=== PATIENT | male | born 1955 | race Caucasian/White ===

== ENCOUNTER 2018-06-10 16:05 | Inpatient (IN) ==
--- NOTE | 2018-06-10 16:27 | CT ---
EXAM DATE: 06/10/2018 4:19 PM EDT AGE/SEX: 63 years / Male INDICATIONS: Stroke alert, left side flaccid. Slurred speech. CLINICAL DATA: This is the patient's initial encounter. Patient reports that signs and symptoms have been present for 1 day and indicates a pain score of Nonresponsive. MEDICAL/SURGICAL HISTORY: Non-responsive. Non-responsive. RADIATION DOSE: 56.35 CTDI (mGy) COMPARISON: [facility], MRA BRAIN W/O CONTRAST, 06/10/2013. . TECHNIQUE: CT of the head without contrast. Using automated exposure control and adjustment of the mA and/or kV according to patient size, radiation dose was kept as low as reasonably achievable to ob tain optimal diagnostic quality images. DICOM format image data is available electronically for revi ew and comparison. FINDINGS: Remote left cerebellar infarct identified. There is mild prominence of the CSF spaces greatest in the parietal regions. No fractures. There are no signs of intracranial hemorrhage, acute infarction, or mass. CONCLUSION: 1. No acute findings. Report was called by [Dr. Wilhelm to Dr. Shin at 4:20 PM on June 10, 2018. ] Electronically signed by: Sylvester Wilhelm MD 06/10/2018 4:25 PM EDT
[2018-06-10] MEDS ORDERED: ALTEPLASE DRIP IV.SIG ONE (16:30)
--- NOTE | 2018-06-10 16:41 | CT ---
EXAM DATE: 06/10/2018 4:35 PM EDT AGE/SEX: 63 years / Male INDICATIONS: Stroke alert, left side flaccid. Slurred speech. CLINICAL DATA: This is the patient's initial encounter. Patient reports that signs and symptoms have been present for 1 day and indicates a pain score of Nonresponsive. MEDICAL/SURGICAL HISTORY: Non-responsive. Dialysis Non-responsive. RADIATION DOSE: 12.53 CTDI (mGy) ; Combined studies [place] [facility] [place]. . TECHNIQUE: Volumetric scanning was performed using a multi-row detector CT scanner during bolus infu paul of 100 ml Visipaque 320 (iodixanol) nonionic water-soluble contrast as a cumulative dose for mu ltiple exams. The data was post processed with a variety of visualization algorithms including full volume maximum intensity projection, multi-planar sliding thin slab reformation, curved planar refor mation, and surface rendering techniques. Using automated exposure control and adjustment of the mA and/or kV according to patient size, radiation dose was kept as low as reasonably achievable to obtai n optimal diagnostic quality images. DICOM format image data is available electronically for review and comparison. FINDINGS: There is excellent visualization of the major intracranial arteries out to the second-order branch ve ssels. There is no evidence for aneurysm, vessel truncation or stenosis, and no evidence for vascula r malformation. There is extensive vascular calcification identified within the region of the carotid bulbs bilaterally without evidence of significant luminal narrowing. CONCLUSION: 1. Atherosclerosis identified within the region of the carotid bulb without significant luminal narr owing. The intracerebral vasculature is otherwise normal in caliber without evidence of aneurysm or a bnormal truncation. Electronically signed by: Babs Arcos MD 06/10/2018 4:40 PM EDT
--- NOTE | 2018-06-10 16:53 | ED ---
HPI General Chief Complaint: Stroke Alert Stated Complaint: Stroke Alert Time Seen by Provider: 06/10/18 16:17 History of Present Illness HPI narrative: This is a 63-year-old male with a history of hypertension, renal failure, dialysis dependent, who presents as a stroke alert. Patient was last seen normal at 1500 hrs. which was in the 3 hour limit. Patient apparently was seen normal and then found in a room at the [facility] with left-sided weakness and a right-sided gaze. The patient initially did not want to go the hospital and was encouraged by the EMS staff to come. He denies any pain. He understands that he is having a stroke. He is unable to move his left upper extremity or left lower extremity. Related Data Allergies Allergy/AdvReac Type Severity Reaction Status Date / Time No Known Allergies Allergy Verified 06/10/18 16:53 Review of Systems ROS: all other systems reviewed are negative Constitutional Reports system reviewed and no additional complaints, except as docu Eyes Reports other (Right sided lateral gaze.) ENT Reports system reviewed and no additional complaints, except as docu Cardiovascular Reports system reviewed and no additional complaints, except as docu Respiratory Reports system reviewed and no additional complaints, except as docu Gastrointestinal Reports system reviewed and no additional complaints, except as docu Genitourinary Denies urinary incontinence Musculoskeletal Reports system reviewed and no additional complaints, except as docu Integumentary/Breasts Reports system reviewed and no additional complaints, except as docu Neurologic Reports focal weakness (Left upper and left lower extremity with 0 out of 5 strength.) and Reports other (Right sided gaze.) [facility] Medical History Medical History AV fistula (Acute) Pacemaker (Acute) Renal failure (Acute) Social History Social History Substance History: No History of Abuse Smoking Status: Never smoker How Often Do You Have a Drink Containing Alcohol: Never Recent Travel in [facility] within the Last 8 Weeks: No Recent Out of Country Travel within the Last 8 Weeks: No Exam Narrative Exam Narrative: GENERAL: Well-developed well-nourished male in no acute respiratory distress. SKIN: Focused skin assessment warm/dry. HEAD: Atraumatic. Normocephalic. EYES: Right-sided gaze.. No scleral icterus. No injection or drainage. ENT: No nasal bleeding or discharge. Mucous membranes pink and moist. NECK: Trachea midline. No JVD. CARDIOVASCULAR: Regular rate and rhythm. No murmur appreciated. RESPIRATORY: No accessory muscle use. Clear to auscultation. Breath sounds equal bilaterally. GASTROINTESTINAL: Abdomen soft, non-tender, nondistended. Hepatic and splenic margins not palpable. MUSCULOSKELETAL: No obvious deformities. No clubbing. No cyanosis. No edema. NEUROLOGICAL: Awake and alert. Patient had a right-sided gaze. There was no midline eye involvement to the left side. Patient had flaccid left upper and left lower extremities. He was able to answer questions. There is no slurred speech. PSYCHIATRIC: Appropriate mood and affect; insight and judgment normal. Course Initial Documented Vital Signs Temperature 98.1 F 06/10/18 16:05 Pulse Rate 83 06/10/18 16:05 Respiratory Rate 20 06/10/18 16:05 Blood Pressure 143/60 H 06/10/18 16:05 Pulse Oximetry 100 06/10/18 16:05 Last Documented Vital Signs Temperature 98.1 F 06/10/18 16:05 Pulse Rate 83 06/10/18 16:05 Respiratory Rate 20 06/10/18 16:05 Blood Pressure 143/60 H 06/10/18 16:05 Pulse Oximetry 99 06/10/18 16:08 Critical Care Time Critical Care Time: Yes Total Critical Care Time: 45 Attestation: Aggregate critical care time was 45 minutes. Time to perform other separately billable procedures was not included in the critical care time. My time did not include minutes spent treating any other patients simultaneously or on activities that did not directly contribute to the patient's treatment. The services I provided to this patient were to treat and/or prevent clinically significant deterioration that could result in: Intracranial hemorrhage or . I provided critical care services requiring my management, as noted below: Chart data review, documentation time, medication orders and management, vital sign assessments/reviewing monitor data, ordering and reviewing lab tests, ordering and interpreting/reviewing x-rays and diagnostic studies, care of the patient and discussion of the patient with the admitting physicians. NIH Stroke Scale NIH Stroke Scale Level of Consciousness: 2-Obtunded Orientation Questions: 2-Neither task correct Responds to Commands: 2-Neither task correct Gaze Eye Movement: 2-Complete gaze palsy Visual [place]: 3-Bilateral hemianopia Facial Movement: 0-Normal Motor Functions Arm LEFT: 3-No effort against gravity Motor Functions Arm RIGHT: 0-No drift Motor Functions Leg LEFT: 4-No movement Motor Functions Leg RIGHT: 0-No drift Limb Ataxia: 2-Ataxia in two limbs Sensory Loss: 2-Severe sensory loss Best Language: 0-Normal Articulation: 1-Mild dysarthia Extinction or Inattention Sensory: 2-Loss 2 modalities Total: 25 Medical Decision Making MDM Narrative Medical decision making narrative: 63-year-old male presents today after having an episode where he was found down with right-sided gaze. Patient has left- sided dense paralysis. He is a renal failure patient. CT scan shows no evidence of acute intracranial hemorrhage. He does have an old left cerebellar stroke. Patient meets criteria for TPA. Discussion with both the neurologist, Dr. Hardwick, the stroke coronary, and myself, agreed that he would be a good candidate. Discussion with both the and the nephew who is a physician sales service assistant here [place] was made and there is agreement to administration of TPA. Initial TPA bolus was started at 1641 which is 1 hour and 41 minutes from last seen normal. Medical Screen Exam Complete: Yes Emergency Medical Condition: Yes Differential Diagnosis Differential Diagnosis: Embolic versus hemorrhagic stroke versus atypical seizure versus metabolic derangement Lab Data Lab Results 06/10/18 06/10/18 06/10/18 Range/Units 16:10 16:10 16:40 POC Hgb (Calc) 11.2 L (13.0-17.0) g/dL POC Hct 33.0 L (39-51.0) % POC Sodium 140 (137-144) mmol/L POC Potassium 4.5 (3.6-5.0) mmol/L POC Chloride 102 (102-111) mmol/L POC BUN 50 H (5-21) mg/dL POC Creatinine 3.6 H (0.6-1.3) mg/dL POC Glucose 205 H (68-110) mg/dL Urine Color Yellow (Yellw/Straw) Urine Clarity Clear (Clear) Urine pH 6.0 (5.0-8.5) Ur Specific [place] 1.014 (1.002-1.035) Urine Protein 100 H (Neg-Trace) mg/dL Urine Glucose (UA) 50 (Negative) mg/dL Urine Ketones Negative (Negative) mg/dL Urine Occult Blood Negative (Negative) Urine Nitrate Negative (Negative) Urine Bilirubin Negative (Negative) Urine Urobilinogen Less than 2 (Less than 2) mg/dL Ur Leukocyte Esterase Negative (Negative) Urine RBC 1 (0-3) /hpf Urine WBC 2 (0-5) /hpf Hyaline Casts 1 (0-3) /lpf Micro UA Comment Cath-culture not ind Ur Microscopic Review Not Reportable Urine Culture Comments Cath-cult not ind Blood Type B Positive Blood Type Recheck Required Antibody Screen Negative Imaging Data Radiologist's impression: Chest X-Ray 06/10/18 16:08 CONCLUSION: Bilateral perihilar airspace opacities which may reflect a diffuse infectious process versus edema from congestive heart failure. Left-sided pleural effusion , small. Head CT 06/10/18 16:08 CONCLUSION: 1. No acute findings. Report was called by [Dr. Wilhelm to Dr. Shin at 4:20 PM on June 10, 2018. ] Head CTA 06/10/18 16:08 CONCLUSION: 1. Atherosclerosis identified within the region of the carotid bulb without significant luminal narrowing. The intracerebral vasculature is otherwise normal in caliber without evidence of aneurysm or abnormal truncation. Neck CTA 06/10/18 16:08 CONCLUSION: 1. No evidence for hemodynamically significant stenosis. Discharge Plan Discharge Disposition Patient Disposition: 30 Still Patient Discharge Details Diagnosis: Renal failure, chronic, Acute right MCA stroke, Hypertension, Chronic kidney disease Physicians Team ED Provider: Harish Shin Primary Care Provider: Thomas Escobedo Attending Provider: Gerald Reyes Other Providers: Patrice Hardwick Status ED Status: Admitted Patient
[2018-06-10] MEDS ORDERED: Alteplase Bolus 9 MG/9 ML Syringe IV.PUSH ONE (16:55)
--- NOTE | 2018-06-10 17:14 | CT ---
EXAM DATE: 06/10/2018 4:58 PM EDT AGE/SEX: 63 years / Male INDICATIONS: Stroke alert, left side flaccid. Slurred speech. CLINICAL DATA: This is the patient's initial encounter. Patient reports that signs and symptoms have been present for 1 day and indicates a pain score of Nonresponsive. MEDICAL/SURGICAL HISTORY: Non-responsive. Dialysis Non-responsive. RADIATION DOSE: 12.53 CTDI (mGy) ; Combined studies COMPARISON: [facility], CTA HEAD W CONTRAST W 3D, 06/10/2018. . TECHNIQUE: Volumetric scanning was performed using a multirow detector CT scanner during bolus infus ion of 100 ml Visipaque 320 (iodixanol) nonionic water-soluble contrast as a cumulative dose for mul tiple exams. The data was postprocessed with a variety of visualization algorithms including full-v olume maximum intensity projection, multiplanar sliding thin-slab reformation, curved-planar reformat ion, and surface-rendering techniques. Using automated exposure control and adjustment of the mA and /or kV according to patient size, radiation dose was kept as low as reasonably achievable to obtain o ptimal diagnostic quality images. DICOM format image data is available electronically for review and comparison. Percent stenosis is calculated using the diameter of the stenotic region over the diameter of the nor mal distal internal carotid artery. FINDINGS: Aortic Arch: There is a three-vessel origin of the great vessels from the aorta. No evidence of ost ial narrowing calcific plaque at the origin of the left subclavian, left common carotid and brachioce phalic arteries as well as the right subclavian artery. Right Carotid: There is mild calcific plaquing of the mid to distal common carotid artery and modera te calcific plaquing at the carotid bulb without evidence for hemodynamically significant stenosis. Left Carotid: Calcific plaquing the mid to distal common carotid artery and moderate calcific plaqui ng at the carotid bulb without evidence for hemodynamically significant stenosis. Vertebrals: The vertebral arteries have a symmetric diameter. No stenotic lesions are seen. There i s calcific plaque at the origin of the bilateral vertebral arteries. CONCLUSION: 1. No evidence for hemodynamically significant stenosis. Electronically signed by: Sylvester Wilhelm MD 06/10/2018 5:13 PM EDT
--- NOTE | 2018-06-10 17:35 | XR ---
EXAM DATE: 06/10/2018 5:29 PM EDT AGE/SEX: 63 years / Male INDICATIONS: Stroke alert. CLINICAL DATA: This is the patient's initial encounter. Patient reports that signs and symptoms have been present for 1 day and indicates a pain score of Nonresponsive. MEDICAL/SURGICAL HISTORY: Non-responsive. Non-responsive. COMPARISON: [facility] [place]ST SINGLE AP, 06/09/2013. . FINDINGS: Portable supine view of the chest demonstrates interval postsurgical changes of the mediastinum with a loop monitor device overlying the cardiac border. There is bilateral perihilar airspace opacities w ith obscuration of the left hemidiaphragm and blunting of the left costophrenic angle concerning for small left-sided pleural effusion. Osseous structures are are unremarkable. CONCLUSION: Bilateral perihilar airspace opacities which may reflect a diffuse infectious process versus edema fr om congestive heart failure. Left-sided pleural effusion, small. Electronically signed by: Babs Arcos MD 06/10/2018 5:34 PM EDT
--- NOTE | 2018-06-10 18:00 | P.CONNEU ---
History of Present Illness Service: Neurology Primary Care Provider: Thomas Escobedo Chief Complaint: Stroke alert History of Present Illness: 63-year-old male brought in for stroke alert. Approximately 1500 acute changes neuro status. 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 When he got there he shortly became confused and developed weakness on his left side. He does not have left hemiplegia, left-sided neglect , right gaze preference. IV TPA was discussed with her spouse who elected towards treatment as he met criteria. They understand the risk at least 6% chance of ICH, stomach bleeding. History of previous stroke supposed to be on antiplatelets however has not been taking them compliantly as he has been bruising a lot. He does have a pacemaker as well. I see him in the office a few weeks ago and he was doing well. Review of Systems All other systems reviewed negative except as stated [facility] - History History Provided By: Patient, Family Member - Medical History Medical History: Medical History (Last Updated 06/10/18 @ 16:50 by Barbie Peralta RN) AV fistula Pacemaker Renal failure - Tobacco History Smoking Status: Never smoker - Alcohol History How Often Do You Have a Drink Containing Alcohol: Never - Substance Use History Substance History: No History of Abuse - Travel History Recent Travel in the [place] Within the Last 8 Weeks: No Recent Travel Out of the Country Within the Last 8 Weeks: No - Immunization History Tetanus Immunization: Unsure Hx Influenza Vaccine This Season: Yes Medications and Allergies Active Medications: Active Medications Chlorhexidine Gluconate (Chlorhexidine 2% Cloth) 3 pack TOPICAL DAILY@0400 PRN PRN Reason: Extra cloth needed Stop: 06/16/18 03:59 Chlorhexidine Gluconate (Chlorhexidine 2% Cloth) 3 pack TOPICAL DAILY@0400 HELLEN Stop: 06/16/18 03:59 Allergies Allergy/AdvReac Type Severity Reaction Status Date / Time No Known Allergies Allergy Verified 06/10/18 16:53 Exam Vital signs: Vital Signs 06/10/18 16:05 06/10/18 16:08 Temperature 98.1 F Pulse Rate 83 Respiratory Rate 20 Blood Pressure 143/60 H Pulse Oximetry 100 99 Intake & Output 06/09/18 06/10/18 06/10/18 18:59 06:59 18:59 Weight 72.4 kg Narrative: GENERAL: in NAD, SKIN: Warm and dry. HEAD: Atraumatic. Normocephalic. EYES: Pupils equal and round. No scleral icterus. ENT: No nasal bleeding or discharge. Mucous membranes pink and moist. NECK: Trachea midline. No JVD. CARDIOVASCULAR: Systolic murmur RESPIRATORY: No accessory muscle use. Clear to auscultation. Breath sounds equal bilaterally. GASTROINTESTINAL: Abdomen soft, non-tender, nondistended. MUSCULOSKELETAL: Extremities without clubbing, cyanosis, or edema. No obvious deformities. NEUROLOGICAL: Awake and alert. Right gaze preference, left facial droop, left hemineglect left anosognosia, left hemiplegia strength 0 out of 5, left extensor plantar PSYCHIATRIC: Calm - Constitutional no acute distress - Routine HEENT Exam Head: Present: normocephalic Results - Labs Labs: Laboratory Results - last 24 hr 06/10/18 06/10/18 16:10 16:10 POC Hgb (Calc) 11.2 L POC Hct 33.0 L POC Sodium 140 POC Potassium 4.5 POC Chloride 102 POC BUN 50 H POC Creatinine 3.6 H POC Glucose 205 H Blood Type B Positive Blood Type Recheck Required Antibody Screen Negative - Imaging Impressions Chest X-Ray 06/10/18 16:08 CONCLUSION: Bilateral perihilar airspace opacities which may reflect a diffuse infectious process versus edema from congestive heart failure. Left-sided pleural effusion , small. Head CT 06/10/18 16:08 CONCLUSION: 1. No acute findings. Report was called by [Dr. Wilhelm to Dr. Shin at 4:20 PM on June 10, 2018. ] Head CTA 06/10/18 16:08 CONCLUSION: 1. Atherosclerosis identified within the region of the carotid bulb without significant luminal narrowing. The intracerebral vasculature is otherwise normal in caliber without evidence of aneurysm or abnormal truncation. Neck CTA 06/10/18 16:08 CONCLUSION: 1. No evidence for hemodynamically significant stenosis. Review/Management - Diagnosis (1) Acute right MCA stroke Code(s): I63.511 - Cerebral infarction due to unspecified occlusion or stenosis of right middle cerebral artery Status: Acute Current Visit: Yes (2) Hypertension Code(s): I10 - Essential (primary) hypertension Status: Acute Current Visit : Yes (3) Chronic kidney disease Code(s): N18.9 - Chronic kidney disease, unspecified Status: Acute Current Visit: Yes (4) Acute embolic stroke Code(s): I63.9 - Cerebral infarction, unspecified Status: Acute Current Visit: Yes (5) Renal failure, chronic Code(s): N18.9 - Chronic kidney disease, unspecified Status: Acute Current Visit: Yes - Review/Management Plan: 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 Cardio embolic etiology is certainly possible Discussed with interventional radiology and we reviewed CTA brain carotids. They do not feel there is any further intervention they can be performed. He may have a distal right MCA occlusion Atherosclerotic disease of the carotid bulb but no occlusion Recommendations Post IV TPA order set ICU admission Blood pressure less than 180/100 at all times. Use nicardipine drip if necessary SCDs Echo, lipids, HbA1c Watch for fluid overload Renal consult for continuation of hemodialysis Therapy Cardiology evaluation to exclude A. fib interrogate his pacemaker consideration of JAVIER Discussed with patient and spouse at bedside. (5) Renal failure, chronic Qualifiers: Chronic kidney disease stage: stage 5 Qualified Code(s): N18.5 - Chronic kidney disease, stage 5
[2018-06-10 18:29] LABS: Bilirubin,Urine Negative (Negative); Clarity,Urine Clear (Clear); Color,Urine Yellow (Yellw/Straw); Glucose,Urine (UA) 50 mg/dL (Negative); Hyaline Casts,Urine 1 /lpf (0-3); Leukocyte Esterase,Urine Negative (Negative); Nitrite,Urine Negative (Negative); Specific Gravity,Urine 1.014 (1.002-1.035)
[2018-06-10] MEDS ORDERED: Metoprolol Inj 5 MG/5 ML Vial IV.PUSH ONE (18:52)
[2018-06-10] MEDS ORDERED: Labetalol HCl Inj 100 MG/20 ML Vial IV.PUSH ONE (19:54)
[2018-06-10 20:01] LABS: Amphetamine Screen,Urine Neg (Neg); Barbiturate Screen,Urine Neg (Neg); Cannabinoid Screen,Urine Neg (Neg); Cocaine Screen,Urine Neg (Neg)
[2018-06-10 20:25] LABS: Opiate Screen,Urine Neg (Neg)
--- NOTE | 2018-06-10 21:08 | P.HPCC ---
History of Present Illness Primary Care Physician: Thomas Escobedo Chief Complaint: Stroke alert History of Present Illness: 63-year-old male with a history of hypertension, renal failure, dialysis dependent, presents as a stroke alert. Patient was last seen normal at 1500 p.m. which was within the 3 hour limit. Patient apparently was seen normal and then found in a room at the [facility] with left-sided weakness and a right- sided gaze. The patient initially did not want to go the hospital and was encouraged by the EMS staff to come. He denies any pain. He understands that he is having a stroke. He was unable to move his left upper extremity or left lower extremity. The TPA was administered in the emergency department. CTA of the head and neck shows the intracerebral vasculature is normal in caliber without evidence of aneurysm or abnormal truncation. The patient has been admitted to ICU stroke TPa protocol. Inpatient Certification: I certify that the inpatient services were ordered in accordance with Medicare regulations governing the order. This includes certification that hospital inpatient services are reasonable and necessary and in the case of services not specified as inpatient-only under 42 CFR 419.22(n), that they are appropriately provided as inpatient services in accordance to with the 2-midnight benchmark under 43 CFR 412.3(e) Estimated Total Length of Stay (Days): 4 Plans for Post Hospital Care: Not yet determined Review of Systems All other systems reviewed negative except as stated in HPI [facility] - History History Provided By: Patient, Family Member - Medical History Medical History: Medical History (Last Updated 06/10/18 @ 16:50 by Barbie Peralta RN) AV fistula Pacemaker Renal failure - Tobacco History Smoking Status: Never smoker - Alcohol History How Often Do You Have a Drink Containing Alcohol: Never - Substance Use History Substance History: No History of Abuse - Travel History Recent Travel in the [place] Within the Last 8 Weeks: No Recent Travel Out of the Country Within the Last 8 Weeks: No - Immunization History Tetanus Immunization: Unsure Hx Influenza Vaccine This Season: Yes Medications and Allergies Active Medications: Active Medications Chlorhexidine Gluconate (Chlorhexidine 2% Cloth) 3 pack TOPICAL DAILY@0400 PRN PRN Reason: Extra cloth needed Stop: 06/16/18 03:59 Chlorhexidine Gluconate (Chlorhexidine 2% Cloth) 3 pack TOPICAL DAILY@0400 HELLEN Stop: 06/16/18 03:59 Allergies Allergy/AdvReac Type Severity Reaction Status Date / Time No Known Allergies Allergy Verified 06/10/18 16:53 Results - Labs Labs: Urine 06/10/18 Range/Units 16:40 Urine Color Yellow (Yellw/Straw) Urine Clarity Clear (Clear) Urine pH 6.0 (5.0-8.5) Ur Specific Bl[place] 1.014 (1.002-1.035) Urine Protein 100 H (Neg-Trace) mg/dL Urine Glucose (UA) 50 (Negative) mg/dL - Imaging Impressions Chest X-Ray 06/10/18 16:08 CONCLUSION: Bilateral perihilar airspace opacities which may reflect a diffuse infectious process versus edema from congestive heart failure. Left-sided pleural effusion , small. Head CT 06/10/18 16:08 CONCLUSION: 1. No acute findings. Report was called by [Dr. Wilhelm to Dr. Shin at 4:20 PM on June 10, 2018. ] Head CTA 06/10/18 16:08 CONCLUSION: 1. Atherosclerosis identified within the region of the carotid bulb without significant luminal narrowing. The intracerebral vasculature is otherwise normal in caliber without evidence of aneurysm or abnormal truncation. Neck CTA 06/10/18 16:08 CONCLUSION: 1. No evidence for hemodynamically significant stenosis. Exam Vital signs: Vital Signs 06/10/18 16:05 06/10/18 16:08 06/10/18 19:07 Temperature 98.1 F Pulse Rate 83 60 Respiratory Rate 20 18 Blood Pressure 143/60 H 177/79 H Pulse Oximetry 100 99 Intake & Output 06/10/18 06/10/18 06/11/18 06:59 18:59 06:59 Intake Total 58.5 / 58.5 Balance 58.5 / 58.5 Weight 72.4 kg Intake: IV 58.5 / 58.5 Activase Drip 58.5 MG In Bag/ 58.5 / 58.5 Syringe 1 EACH @ 58.5 mls/hr IV .SIG ONCE ONE Rx#:[id number] - Constitutional mild distress - Routine HEENT Exam Head: Present: normocephalic, atraumatic Eye: Present: PERRL, normal accommodation - Routine Neck Exam Present: supple, full ROM. Absent: JVD, carotid bruit - Routine Chest/Breast/Axilla Exam Chest wall: Present: pacemaker. Absent: tenderness, mass - Routine Cardiovascular Exam Present: RRR, S1, S2 - Routine Abdominal Exam Present: soft, normoactive bowel sounds. Absent: tenderness, distended - Routine Extremities Exam Absent: cyanosis, clubbing, edema - Routine Skin Exam Present: intact. Absent: cyanosis, erythema - Routine Neurological Exam Present: alert, oriented X3 Right gaze preference, left hemineglect, left hemiplegia on the upper and lower extremities Septic Shock Reassessment Septic shock perfusion: reassessment completed Caprini VTE Risk Assessment Caprini VTE Risk Assessment: Moderate/High Risk (score >= 2) Caprini Risk Assessment Model: Point Value = 1 Point Value = 2 Point Value = 3 Point Value = 5 Age 41-60 Minor surgery BMI > 25 kg/m2 Swollen legs Varicose veins or History of unexplained or recurrent spontaneous Oral contraceptives or hormone replacement Sepsis (< 1 month) Serious lung disease, including pneumonia (< 1 month) Abnormal pulmonary function Acute myocardial infarction Congestive heart failure (< 1 month) History of inflammatory bowel disease Medical patient at bed rest Age 61-74 Arthroscopic surgery Major open surgery (> 45 min) Laparoscopic surgery (> 45 min) Malignancy Confined to bed (> 72 hours) Immobilizing plaster cast Central venous access Age >= 75 History of VTE Family history of VTE Factor V Leiden Prothrombin [id number] Lupus anticoagulant Anticardiolipin antibodies Elevated serum homocysteine Heparin-induced thrombocytopenia Other congenital or acquired thrombophilia Stroke (< 1 month) Elective arthroplasty Hip, pelvis, or leg fracture Acute spinal cord injury (< 1 month) Prophylaxis Regimen: Total Risk Factor Score Risk Level Prophylaxis Regimen 0-1 Low Early ambulation 2 Moderate Order ONE of the following: *Sequential Compression Device (SCD) *Heparin 5000 units SQ BID 3-4 Higher Order ONE of the following medications: *Heparin 5000 units SQ TID *Enoxaparin/Lovenox 40 mg SQ daily (WT < 150 kg, CrCl > 30 mL/min) *Enoxaparin/Lovenox 30 mg SQ daily (WT < 150 kg, CrCl > 10-29 mL/min) *Enoxaparin/Lovenox 30 mg SQ BID (WT < 150 kg, CrCl > 30 mL/min) AND/OR *Sequential Compression Device (SCD) 5 or more Highest Order ONE of the following medications: *Heparin 5000 units SQ TID (Preferred with Epidurals) *Enoxaparin/Lovenox 40 mg SQ daily (WT < 150 kg, CrCl > 30 mL/min) *Enoxaparin/Lovenox 30 mg SQ daily (WT < 150 kg, CrCl > 10-29 mL/min) *Enoxaparin/Lovenox 30 mg SQ BID (WT < 150 kg, CrCl > 30 mL/min) AND *Sequential Compression Device (SCD) Assessment and Plan - Assessment and Plan Plan: Acute CVA -Status post TPA administration -Neuro checks per unit protocol -Repeat CT head a.m. -PT and OT as tolerated -Further management per neurology Hypertension -Cardene drip to keep SBP less than 180 -Labetalol and enalapril IV as needed Nausea/vomiting -Zofran and Phenergan as needed Dyslipidemia -Pravastatin DVT GI prophylaxis -Teds SCDs -No pharmacological DVT prophylaxis 24 hours post TPA -Pepcid 35 minutes of critical care
[2018-06-10 21:19] LABS: Chol/HDL Ratio 2.54 Ratio; HDL Cholesterol 39.3 mg/dL (40.0-60.0)
[2018-06-10] MEDS ORDERED: niCARdipine Inj 25 MG in Sodium Chlor 0.9% Inj 240 ML IV.CONT PRN (21:32)
[2018-06-10] MEDS ORDERED: Dextrose 50% in Water 50 ML Vial IV.PUSH PRN (21:54)
[2018-06-11] MEDS ORDERED: Chlorhexidine Gluconate 2% 1 Pack (2 Cloths) TOPICAL PRN (04:00)
[2018-06-11] MEDS: Chlorhexidine Gluconate 2% 1 Pack (2 Cloths) TOPICAL SCH (04:53)
--- NOTE | 2018-06-11 09:38 | P.PNNEU ---
Subjective Subjective Comments: No acute events Active Medications: Active Medications Chlorhexidine Gluconate (Chlorhexidine 2% Cloth) 3 pack TOPICAL DAILY@0400 PRN PRN Reason: Extra cloth needed Stop: 06/16/18 03:59 Chlorhexidine Gluconate (Chlorhexidine 2% Cloth) 3 pack TOPICAL DAILY@0400 HELLEN Stop: 06/16/18 03:59 Last Admin: 06/11/18 04:53 Dose: 3 pack Dextrose (D50w Vial) 50 ml IV.PUSH UNSCH PRN PRN Reason: PER HYPOGLYCEMIA PROTOCOL Enalaprilat (Vasotec Inj) 1.25 mg IV.PUSH Q4H PRN PRN Reason: For SBP > 220 or DBP > 120 Glucagon (Glucagon Inj) 1 mg OTHER UNSCH PRN PRN Reason: for Hypoglycemia Protocol Nicardipine HCl 25 mg/ Sodium (Chloride) 250 mls @ 50 mls/hr IV.CONT TITRATE PRN; Protocol PRN Reason: Per Protocol Last Titration: 06/11/18 00:15 Dose: 0 mg/hr, 0 mls/hr Insulin Aspart (Novolog Insulin Correctional Sugar Inj) 0 unit SQ ACHS HELLEN; Protocol Labetalol HCl (Trandate Inj) 10 mg IV.PUSH Q2H PRN PRN Reason: For SBP > 220 or DBP > 120 Pravastatin Sodium (Pravachol) 40 mg PO HS HELLEN Promethazine HCl (Phenergan Inj) 12.5 mg IM Q6H PRN PRN Reason: VOMITING Sodium Chloride (Ns Flush) 2 ml IV.FLUSH BID HELLEN Sodium Chloride (Ns Flush) 2 ml IV.FLUSH PRN PRN PRN Reason: FLUSH AFTER USING IV ACCESS Allergies/Adverse Reactions: Allergies Allergy/AdvReac Type Severity Reaction Status Date / Time No Known Allergies Allergy Verified 06/10/18 16:53 Review of Systems All other systems reviewed negative except as stated in HPI Physical Exam Vital signs: Vital Signs 06/10/18 16:05 06/10/18 16:08 06/10/18 19:07 Temperature 98.1 F Pulse Rate 83 60 Respiratory Rate 20 18 Blood Pressure 143/60 H 177/79 H Pulse Oximetry 100 99 06/10/18 20:00 06/10/18 20:15 06/10/18 20:30 Temperature Pulse Rate 60 58 L 60 Respiratory Rate 18 18 18 Blood Pressure 181/77 H 179/76 H 182/75 H Pulse Oximetry 99 98 99 06/10/18 20:45 06/10/18 21:10 06/10/18 21:15 Temperature Pulse Rate 60 60 Respiratory Rate 18 24 Blood Pressure 177/80 H 165/71 H Pulse Oximetry 99 98 98 06/10/18 21:45 06/10/18 22:15 06/10/18 22:45 Temperature Pulse Rate 60 58 L 58 L Respiratory Rate 20 27 H 27 H Blood Pressure 190/80 H 146/65 H 152/68 H Pulse Oximetry 100 100 100 06/10/18 23:15 06/11/18 00:00 06/11/18 01:00 Temperature 98.8 F Pulse Rate 60 60 59 L Respiratory Rate 23 21 19 Blood Pressure 141/63 H 140/65 157/70 H Pulse Oximetry 99 100 100 06/11/18 02:00 06/11/18 03:00 06/11/18 04:00 Temperature 98.6 F Pulse Rate 62 60 61 Respiratory Rate 20 22 19 Blood Pressure 173/68 H 163/74 H 156/68 H Pulse Oximetry 99 100 98 06/11/18 05:00 06/11/18 06:00 Temperature Pulse Rate 59 L 66 Respiratory Rate 25 H 27 H Blood Pressure 152/68 H 161/70 H Pulse Oximetry 100 Intake & Output 06/10/18 06/11/18 06/11/18 18:59 06:59 18:59 Intake Total 58.5 / 58.5 Output Total 550 / 550 Balance 58.5 / 58.5 -550 / -550 Weight 72.4 kg 72.1 kg Intake: IV 58.5 / 58.5 Activase Drip 58.5 MG In Bag/ 58.5 / 58.5 Syringe 1 EACH @ 58.5 mls/hr IV .SIG ONCE ONE Rx#:[id number] Output: Urine Amount (Catheter) 550 / 550 Indwelling Urethral Catheter 550 / 550 Other: Date of Last Bowel Movement 06/09/18 Narrative: GENERAL: in NAD, SKIN: Warm and dry. HEAD: Atraumatic. Normocephalic. EYES: Pupils equal and round. No scleral icterus. ENT: No nasal bleeding or discharge. Mucous membranes pink and moist. NECK: Trachea midline. No JVD. CARDIOVASCULAR: Systolic murmur RESPIRATORY: No accessory muscle use. Clear to auscultation. Breath sounds equal bilaterally. GASTROINTESTINAL: Abdomen soft, non-tender, nondistended. MUSCULOSKELETAL: Extremities without clubbing, cyanosis, or edema. No obvious deformities. NEUROLOGICAL: Awake and alert. Mumbles inconsistently follows fall back asleep. Left facial weakness improved slightly reduced blink to threat left hemifield acknowledges some left-sided weakness this morning, left hemiplegia strength 0 out of 5, left extensor plantar PSYCHIATRIC: Calm - Constitutional no acute distress - Routine HEENT Exam Head: Present: normocephalic - Urinary Catheter Management Indwelling Urethral Catheter Cath placed during this visit: yes Reason for continuing: Hourly intake/output Insertion date: 06/10/18 Insertion time: 16:40 Objective Laboratory Results - last 24 hr 06/10/18 06/10/18 06/10/18 16:10 16:10 16:10 POC Hgb (Calc) 11.2 L POC Hct 33.0 L ESR 15 POC Sodium 140 POC Potassium 4.5 POC Chloride 102 POC BUN 50 H POC Creatinine 3.6 H POC Glucose 205 H Hemoglobin A1c Triglycerides Cholesterol LDL Cholesterol, Calc HDL Cholesterol Cholesterol/HDL Ratio Vitamin B12 TSH Urine Color Urine Clarity Urine pH Ur Specific [place] Urine Protein Urine Glucose (UA) Urine Ketones Urine Occult Blood Urine Nitrate Urine Bilirubin Urine Urobilinogen Ur Leukocyte Esterase Urine RBC Urine WBC Hyaline Casts Micro UA Comment Ur Microscopic Review Urine Culture Comments Urine Opiates Screen Ur Barbiturates Screen Ur Amphetamines Screen U Benzodiazepines Scrn Urine Cocaine Screen U Cannabinoids Screen Blood Type B Positive Blood Type Recheck Required Antibody Screen Negative 06/10/18 06/10/18 06/10/18 16:10 16:10 16:10 POC Hgb (Calc) POC Hct ESR POC Sodium POC Potassium POC Chloride POC BUN POC Creatinine POC Glucose Hemoglobin A1c 7.0 H Triglycerides 95 Cholesterol 100 L LDL Cholesterol, Calc 42 HDL Cholesterol 39.3 L Cholesterol/HDL Ratio 2.54 Vitamin B12 1032 H TSH 2.790 Urine Color Urine Clarity Urine pH Ur Specific [place] Urine Protein Urine Glucose (UA) Urine Ketones Urine Occult Blood Urine Nitrate Urine Bilirubin Urine Urobilinogen Ur Leukocyte Esterase Urine RBC Urine WBC Hyaline Casts Micro UA Comment Ur Microscopic Review Urine Culture Comments Urine Opiates Screen Ur Barbiturates Screen Ur Amphetamines Screen U Benzodiazepines Scrn Urine Cocaine Screen U Cannabinoids Screen Blood Type Blood Type Recheck Antibody Screen 06/10/18 06/10/18 16:40 16:40 POC Hgb (Calc) POC Hct ESR POC Sodium POC Potassium POC Chloride POC BUN POC Creatinine POC Glucose Hemoglobin A1c Triglycerides Cholesterol LDL Cholesterol, Calc HDL Cholesterol Cholesterol/HDL Ratio Vitamin B12 TSH Urine Color Yellow Urine Clarity Clear Urine pH 6.0 Ur Specific [place] 1.014 Urine Protein 100 H Urine Glucose (UA) 50 Urine Ketones Negative Urine Occult Blood Negative Urine Nitrate Negative Urine Bilirubin Negative Urine Urobilinogen Less than 2 Ur Leukocyte Esterase Negative Urine RBC 1 Urine WBC 2 Hyaline Casts 1 Micro UA Comment Cath-culture not ind Ur Microscopic Review Not Reportable Urine Culture Comments Cath-cult not ind Urine Opiates Screen Neg Ur Barbiturates Screen Neg Ur Amphetamines Screen Neg U Benzodiazepines Scrn Pos H Urine Cocaine Screen Neg U Cannabinoids Screen Neg Blood Type Blood Type Recheck Antibody Screen Review/Management - Diagnosis (1) Acute right MCA stroke Code(s): I63.511 - Cerebral infarction due to unspecified occlusion or stenosis of right middle cerebral artery Status: Acute Current Visit: Yes (2) Hypertension Code(s): I10 - Essential (primary) hypertension Status: Acute Current Visit : Yes (3) Chronic kidney disease Code(s): N18.9 - Chronic kidney disease, unspecified Status: Acute Current Visit: Yes (4) Renal failure, chronic Code(s): N18.9 - Chronic kidney disease, unspecified Status: Acute Current Visit: Yes - Review/Management Plan: 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 Cardio embolic etiology is certainly possible Discussed with interventional radiology and we reviewed CTA brain carotids. They do not feel there is any further intervention they can be performed. He may have a distal right MCA occlusion Atherosclerotic disease of the carotid bulb but no occlusion Recommendations Neuro stable Follow-up CT brain scan 24 hours post TPA Post IV TPA order set ICU admission Blood pressure less than 180/100 at all times. Use nicardipine drip if necessary SCDs Echo; pending Watch for fluid overload Renal consult for continuation of hemodialysis Therapy Cardiology evaluation to exclude A. fib interrogate his pacemaker consideration of JAVIER Appreciate critical care service (2) Hypertension Qualifiers: Hypertension type: unspecified Qualified Code(s): I10 - Essential (primary) hypertension (3) Chronic kidney disease Qualifiers: Chronic kidney disease stage: unspecified stage Qualified Code(s): N18.9 - Chronic kidney disease, unspecified (4) Renal failure, chronic Qualifiers: Chronic kidney disease stage: stage 5 Qualified Code(s): N18.5 - Chronic kidney disease, stage 5
[2018-06-11] MEDS ORDERED: Acetaminophen 325 MG Tablet PO PRN (10:32)
[2018-06-11] MEDS ORDERED: Heparin 10,000 UNITS/10 ML Vial (for IV use) OTHER PRN ×2 (10:34)
[2018-06-11] MEDS ORDERED: Sod Chloride 0.9% Inj 1,000 ML OTHER PRN ×2 (10:36)
[2018-06-11] MEDS ORDERED: Sod Chloride 0.9% Inj 1,000 ML IV.CONT PRN (10:38)
[2018-06-11] MEDS: Insulin NovoLOG Aspart Correctional Sugar Inj SQ SCH ×2 (10:48→12:57)
--- NOTE | 2018-06-11 11:43 | MB ---
cc: Dominick Turner MD DATE: 06/11/2018 REASON FOR CONSULTATION: Pacemaker interrogation, consider transesophageal echocardiography. HISTORY OF PRESENT ILLNESS: The patient is a 63-year-old white male, followed in our office by Dr. Shahzad Jorgensen, with a history of coronary artery disease, diabetes, hypertension, hyperlipidemia, end-stage renal disease, Parkinson disease, pacemaker implant, who was brought to the hospital with acute neurological symptoms including left hemiplegia, left-sided neglect, right gaze preference. He was called as a stroke alert and given thrombolytic therapy. The patient denies any recent chest pain, shortness of breath, palpitations, lightheadedness, syncope, near syncope, pedal edema, paroxysmal nocturnal dyspnea. PAST MEDICAL HISTORY: 1. Coronary artery disease status post stent of the left circumflex 05/25/2013, stent of the LAD 08/09/2013, status post 3-vessel bypass surgery 03/2014. 2. Medtronic pacemaker implant. 3. Parkinson disease. 4. Hypertension. 5. Hyperlipidemia. 6. Diabetes. 7. End-stage renal disease. CARDIAC MEDICATIONS AT HOME: 1. Amlodipine 5 mg daily. 2. Aspirin 81 mg daily. 3. Atenolol 25 mg daily. 4. Bumetanide 1 mg b.i.d. 5. Cardura 2 mg daily. 6. Lisinopril 40 mg daily. 7. Simvastatin 20 mg at bedtime. ALLERGIES: NO KNOWN DRUG ALLERGIES. FAMILY HISTORY: Noncontributory. SOCIAL HISTORY: The patient denies any history of alcohol or tobacco abuse. REVIEW OF SYSTEMS: As in the history of present illness, otherwise negative or noncontributory. He also denies headache, abdominal pain, melena, dyspepsia, bright red blood per rectum. PHYSICAL EXAMINATION: VITAL SIGNS: Blood pressure 142/94 with a pulse of 65, respirations 19. GENERAL: He is a well-developed, well-nourished white male, in no acute distress. NECK: Jugular venous pressure is normal. Carotid pulses are 2+ bilaterally and without bruits. CHEST: Reveals clear lungs urias anteriorly. CARDIAC: He has a regular rhythm and rate without S3, S4, or murmur. ABDOMEN: He has a soft, nontender abdomen. Bowel sounds are present. There is no definite hepatosplenomegaly. EXTREMITIES: Reveals no clubbing, cyanosis, or edema. EKG is pending. LABORATORY DATA: Hemoglobin 11.2, potassium 4.5, BUN 50, creatinine 3.6, total cholesterol 100, LDL 42, HDL 39, triglycerides 95. Chest x-ray shows bilateral perihilar airspace opacities. IMPRESSION: Acute right-sided cerebrovascular accident in this 63-year-old white male with a history of coronary artery disease status post bypass surgery in 2013, history of pacemaker implant, Parkinson disease, hypertension, diabetes, end-stage renal disease. I have been asked to see the patient for pacemaker interrogation and possible transesophageal echocardiography. At this point, I would agree with the need for a transesophageal echo to rule out a cardiac source of embolism. The nature of this procedure and potential risks have been outlined to the patient. The patient's cardiac status otherwise appears to be stable. There is no definite evidence for acute coronary syndrome. EKG is pending. There is no documented history of atrial fibrillation. RECOMMENDATIONS: 1. Transesophageal echocardiography today. 2. Will have the [employer]tr[employer] pacemaker veterans service representative interrogate his pacemaker for any atrial dysrhythmias. ADDENDUM: the patient has a lead-less Micra pacemaker. This pacemaker is single chamber and has no electrogram recording capability. Recommend 3-4 week monitoring as an outpatient or consideration of a loop recorder on follow up with his time stamp assembler, Dr. Shahzad Jorgensen. Will follow up as needed after the JAVIER. MD KALYANI Pulido/pan , 11:23 AM , 11:30 AM JUAN CARLOS
[2018-06-11] MEDS ORDERED: Lidocaine PF 1% Inj 5 ML Syringe INFILTRATN ONE (13:26)
--- NOTE | 2018-06-11 14:09 | P.PNADD ---
Addendum to Inpatient Note Additional information: Attempted to pass JAVIER probe without success. Also tried passing the probe with laryngoscope/video assistance without success. The os of the esophagus may be stenotic. Surface echo done along with saline contrast study, showing no definite cardiac source of embolism or intracardiac shunting. LV function is normal
--- NOTE | 2018-06-11 16:46 | CT ---
EXAM DATE: 06/11/2018 4:38 PM EDT AGE/SEX: 63 years / Male INDICATIONS: Follow up stroke. CLINICAL DATA: This is the patient's subsequent encounter. Patient reports that signs and symptoms h ave been present for 2 days and indicates a pain score of 0/10. MEDICAL/SURGICAL HISTORY: . Renal failure. Pacemaker. RADIATION DOSE: 56.35 CTDI (mGy) COMPARISON: [facility] – [place], CT HEAD W/O CONTRAST, 06/10/2018. . TECHNIQUE: CT of the head without contrast. Using automated exposure control and adjustment of the mA and/or kV according to patient size, radiation dose was kept as low as reasonably achievable to ob tain optimal diagnostic quality images. DICOM format image data is available electronically for revi ew and comparison. FINDINGS: Cerebrum: There is progressive low attenuation involving the white matter and boothe matter of the rig ht parietal lobe and to a lesser extent the right posterior to the lobe. Findings are compatible with evolving infarct. The patient is significantly rotated in the scanner, however, there does not appea r to be any midline shift. There is mild mass effect upon the right lateral ventricle and effacement of the sulci of the right parietal lobe. Posterior Fossa: The cerebellum and brainstem are intact. The 4th ventricle is midline. The cerebe llopontine angle is unremarkable. Extracranial: The visualized portion of the orbits is intact. Skull: The calvaria is intact. No evidence of skull fracture. CONCLUSION: 1. Large wedge-shaped area of progressive decreased attenuation involving the white matter and boothe matter of the right parietal lobe and occipital lobe consistent with evolving infarct. There is mild mass effect upon the adjacent right ventricle without significant narrowing of the ventricle and no e vidence of midline shift or transtentorial herniation. 2. No evidence of hemorrhagic transformation. . Electronically signed by: Babs Arcos MD 06/11/2018 4:45 PM EDT
--- NOTE | 2018-06-11 17:27 | P.PNCC ---
Subjective Subjective Remarks/Hospital Course: 06/10: 63-year-old male with a history of hypertension, renal failure, dialysis dependent, presents as a stroke alert. Patient was last seen normal at 1500 p.m. which was within the 3 hour limit. Patient apparently was seen normal and then found in a room at the [facility] with left-sided weakness and a right- sided gaze. The patient initially did not want to go the hospital and was encouraged by the EMS staff to come. He denies any pain. He understands that he is having a stroke. He was unable to move his left upper extremity or left lower extremity. The TPA was administered in the emergency department. CTA of the head and neck shows the intracerebral vasculature is normal in caliber without evidence of aneurysm or abnormal truncation. The patient has been admitted to ICU stroke TPa protocol. 06/11: Resting in bed. Having episodes of nausea. Continues to have left-sided hemiplegia. Objective Vital Signs / I&O: Vital Signs 06/10/18 19:07 06/10/18 20:00 06/10/18 20:15 Temperature Pulse Rate 60 60 58 L Respiratory Rate 18 18 18 Blood Pressure 177/79 H 181/77 H 179/76 H Pulse Oximetry 99 98 06/10/18 20:30 06/10/18 20:45 06/10/18 21:10 Temperature Pulse Rate 60 60 Respiratory Rate 18 18 Blood Pressure 182/75 H 177/80 H Pulse Oximetry 99 99 98 06/10/18 21:15 06/10/18 21:45 06/10/18 22:15 Temperature Pulse Rate 60 60 58 L Respiratory Rate 24 20 27 H Blood Pressure 165/71 H 190/80 H 146/65 H Pulse Oximetry 98 100 100 06/10/18 22:45 06/10/18 23:15 06/11/18 00:00 Temperature 98.8 F Pulse Rate 58 L 60 60 Respiratory Rate 27 H 23 21 Blood Pressure 152/68 H 141/63 H 140/65 Pulse Oximetry 100 99 100 06/11/18 01:00 06/11/18 02:00 06/11/18 03:00 Temperature Pulse Rate 59 L 62 60 Respiratory Rate 19 20 22 Blood Pressure 157/70 H 173/68 H 163/74 H Pulse Oximetry 100 99 100 06/11/18 04:00 06/11/18 05:00 06/11/18 06:00 Temperature 98.6 F Pulse Rate 61 59 L 66 Respiratory Rate 19 25 H 27 H Blood Pressure 156/68 H 152/68 H 161/70 H Pulse Oximetry 98 100 06/11/18 07:00 06/11/18 08:00 06/11/18 09:00 Temperature 99.7 F H 99.7 F H Pulse Rate 81 87 82 Respiratory Rate 27 H 27 H 19 Blood Pressure 160/76 H 160/76 H 160/76 H Pulse Oximetry 100 100 100 06/11/18 09:36 06/11/18 10:00 06/11/18 10:36 Temperature Pulse Rate 70 65 69 Respiratory Rate 19 16 Blood Pressure 142/94 H 152/67 H Pulse Oximetry 96 100 06/11/18 11:00 06/11/18 12:00 06/11/18 13:00 Temperature 97.9 F Pulse Rate 73 66 60 Respiratory Rate 27 H 21 20 Blood Pressure 145/65 H 145/63 H 139/59 L Pulse Oximetry 97 95 100 06/11/18 14:00 06/11/18 15:00 06/11/18 16:00 Temperature 98.3 F Pulse Rate 64 60 64 Respiratory Rate 28 H 25 H 26 H Blood Pressure 150/68 H 150/68 H 170/71 H Pulse Oximetry 100 100 99 Intake & Output 06/10/18 06/11/18 06/11/18 18:59 06:59 18:59 Intake Total 58.5 / 58.5 Output Total 550 / 550 Balance 58.5 / 58.5 -550 / -550 Weight 72.4 kg 72.1 kg Intake: IV 58.5 / 58.5 Activase Drip 58.5 MG In Bag/ 58.5 / 58.5 Syringe 1 EACH @ 58.5 mls/hr IV .SIG ONCE ONE Rx#:[id number] Output: Urine Amount (Catheter) 550 / 550 Indwelling Urethral Catheter 550 / 550 Other: Date of Last Bowel Movement 06/09/18 06/09/18 Procedures: - Routine HEENT Exam Head: Present: normocephalic, atraumatic Eye: Present: PERRL, normal accommodation - Routine Neck Exam Present: supple, full ROM. Absent: JVD, carotid bruit - Routine Chest/Breast/Axilla Exam Chest wall: Present: pacemaker. Absent: tenderness, mass - Routine Cardiovascular Exam Present: RRR, S1, S2 - Routine Abdominal Exam Present: soft, normoactive bowel sounds. Absent: tenderness, distended - Routine Extremities Exam Absent: cyanosis, clubbing, edema - Routine Skin Exam Present: intact. Absent: cyanosis, erythema - Routine Neurological Exam Present: alert, oriented X3 Right gaze preference, left hemineglect, left hemiplegia on the upper and lower extremities Assessment and Plan - Assessment and Plan Plan: Acute CVA -Status post TPA administration -Neuro checks per unit protocol -Repeat CT head today -PT and OT as tolerated -Further management per neurology including antiplatelet therapy. Hypertension -Cardene drip to keep SBP less than 180 -Labetalol and enalapril IV as needed Nausea/vomiting -Zofran and Phenergan as needed Dyslipidemia -Pravastatin DVT GI prophylaxis -Teds SCDs -No pharmacological DVT prophylaxis 24 hours post TPA -Pepcid Consult and transfer to hospitalist service for further medical management, critical care will be signing off. Please reconsult if needed.
[2018-06-11 18:41] LABS: Hematocrit 36.3 % (39.0-51.0); Mean Corpuscular HGB Conc 33.2 % (32.0-36.0); Mean Corpuscular Hemoglobin 31.4 pg (27.0-34.0); Mean Corpuscular Volume 94.7 fL (80.0-100.0); Mean Platelet Volume 8.4 fL (7.0-11.0); Platelet Count 149 th/mm3 (150-450); Red Blood Count 3.83 mil/mm3 (4.50-5.90); Red Cell Distribution Width 13.7 % (11.6-17.2); White Blood Count 12.7 th/mm3 (4.0-11.0)
--- NOTE | 2018-06-11 18:48 | P.CONNP ---
<Jannet Moody - Last Filed: 06/11/18 19:30> History of Present Illness Service: Nephrology Consult date: 06/11/18 Reason for Consult: ESRD on HD Primary Care Provider: Thomas Escobedo Chief Complaint: Stroke alert History of Present Illness: This is a 63 y/o male patient with known last normal who was admitted for CVA. He received TPA at 1641 yesterday. He is from [place], follows with Michael for HD management. He is on home HD, has treatment . His last HD was Friday. Bedside POC labs do not show hyperkalemia. He has a Buck and makes some urine. We cannot cannulate his AVF today as he is within the 24 hr window for TPA administration. We were consulted for management. Review of Systems unobtainable due to mental condition PMFSH - History History Provided By: Patient, Family Member - Medical History Medical History: Medical History (Last Reviewed 06/11/18 @ 13:34 by Sabina Hsu) AV fistula Pacemaker Renal failure - Tobacco History Smoking Status: Never smoker - Alcohol History How Often Do You Have a Drink Containing Alcohol: Never - Substance Use History Substance History: No History of Abuse - Travel History Recent Travel in the [place] Within the Last 8 Weeks: No Recent Travel Out of the Country Within the Last 8 Weeks: No - Immunization History Tetanus Immunization: Unsure Hx Influenza Vaccine This Season: Yes Medications and Allergies Allergies Allergy/AdvReac Type Severity Reaction Status Date / Time No Known Allergies Allergy Verified 06/10/18 16:53 Active Medications: Active Medications Acetaminophen (Tylenol) 650 mg PO UNSCH PRN PRN Reason: SEE LABEL COMMENTS Chlorhexidine Gluconate (Chlorhexidine 2% Cloth) 3 pack TOPICAL DAILY@0400 PRN PRN Reason: Extra cloth needed Stop: 06/16/18 03:59 Chlorhexidine Gluconate (Chlorhexidine 2% Cloth) 3 pack TOPICAL DAILY@0400 HELLEN Stop: 06/16/18 03:59 Last Admin: 06/11/18 04:53 Dose: 3 pack Clonidine HCl (Catapres) 0.1 mg PO UNSCH PRN PRN Reason: SEE LABEL COMMENTS Dextrose (D50w Vial) 50 ml IV.PUSH UNSCH PRN PRN Reason: PER HYPOGLYCEMIA PROTOCOL Diphenhydramine HCl (Benadryl) 25 mg PO UNSCH PRN PRN Reason: SEE LABEL COMMENTS Enalaprilat (Vasotec Inj) 1.25 mg IV.PUSH Q4H PRN PRN Reason: For SBP > 220 or DBP > 120 Last Admin: 06/11/18 15:08 Dose: 1.25 mg Gelatin (Gelfoam 12 Mm/7 Mm Topical) 1 foam TOPICAL PRN PRN PRN Reason: help stop bleeding from site Gentamicin Sulfate (Gentamicin Inj) 20 mg OTHER WITH DIALYSIS PRN PRN Reason: Dwell Gentamycin Lock Glucagon (Glucagon Inj) 1 mg OTHER UNSCH PRN PRN Reason: for Hypoglycemia Protocol Heparin Sodium (Porcine) (Heparin Inj) 8,000 units OTHER WITH DIALYSIS PRN PRN Reason: for machine prime Heparin Sodium (Porcine) (Heparin Inj) 1,000 units OTHER WITH DIALYSIS PRN PRN Reason: Dwell Heparin to Fill Catheter Nicardipine HCl 25 mg/ Sodium (Chloride) 250 mls @ 50 mls/hr IV.CONT TITRATE PRN; Protocol PRN Reason: Per Protocol Last Titration: 06/11/18 00:15 Dose: 0 mg/hr, 0 mls/hr Albumin Human (Flexbumin 25% Inj) 100 mls @ 60 mls/hr IV.SIG WITH DIALYSIS PRN PRN Reason: hypotension / volume replace Sodium Chloride (Ns Inj) 1,000 mls @ 0 mls/hr OTHER .Q0M PRN PRN Reason: for prime and rinse back Sodium Chloride (Ns Inj) 1,000 mls @ 200 mls/hr OTHER .Q5H PRN PRN Reason: for dialyzer flush PRN Sodium Chloride (Ns Inj) 1,000 mls @ 0 mls/hr IV.CONT .Q0M PRN PRN Reason: hypotension / volume replace Insulin Aspart (Novolog Insulin Correctional Sugar Inj) 0 unit SQ ACHS [facility]LLEN; Protocol Last Admin: 06/11/18 12:57 Dose: Not Given Labetalol HCl (Trandate Inj) 10 mg IV.PUSH Q2H PRN PRN Reason: For SBP > 220 or DBP > 120 Mannitol (Mannitol Inj) 12.5 gm IV.PUSH UNSCH PRN PRN Reason: hypotension / volume replace Nitroglycerin (Nitrostat Sl) 0.4 mg SL Q5M PRN PRN Reason: CHEST PAIN Ondansetron HCl (Zofran Inj) 4 mg IV.PUSH UNSCH PRN PRN Reason: NAUSEA OR VOMITING Ondansetron HCl (Zofran Inj) 4 mg IV.PUSH Q6H PRN PRN Reason: NAUSEA Last Admin: 06/11/18 15:40 Dose: 4 mg Pravastatin Sodium (Pravachol) 40 mg PO HS [facility] Promethazine HCl (Phenergan Inj) 12.5 mg IM Q6H PRN PRN Reason: VOMITING Sodium Chloride (Ns Flush) 2 ml IV.FLUSH BID HELLEN Last Admin: 06/11/18 10:49 Dose: 2 ml Sodium Chloride (Ns Flush) 2 ml IV.FLUSH PRN PRN PRN Reason: FLUSH AFTER USING IV ACCESS Sodium Chloride (Ns Flush) 5 ml IV.FLUSH PRN PRN PRN Reason: flush each lumen during HD Exam Vital signs: Vital Signs 06/10/18 19:07 06/10/18 20:00 06/10/18 20:15 Temperature Pulse Rate 60 60 58 L Respiratory Rate 18 18 18 Blood Pressure 177/79 H 181/77 H 179/76 H Pulse Oximetry 99 98 06/10/18 20:30 06/10/18 20:45 06/10/18 21:10 Temperature Pulse Rate 60 60 Respiratory Rate 18 18 Blood Pressure 182/75 H 177/80 H Pulse Oximetry 99 99 98 06/10/18 21:15 06/10/18 21:45 06/10/18 22:15 Temperature Pulse Rate 60 60 58 L Respiratory Rate 24 20 27 H Blood Pressure 165/71 H 190/80 H 146/65 H Pulse Oximetry 98 100 100 06/10/18 22:45 06/10/18 23:15 06/11/18 00:00 Temperature 98.8 F Pulse Rate 58 L 60 60 Respiratory Rate 27 H 23 21 Blood Pressure 152/68 H 141/63 H 140/65 Pulse Oximetry 100 99 100 06/11/18 01:00 06/11/18 02:00 06/11/18 03:00 Temperature Pulse Rate 59 L 62 60 Respiratory Rate 19 20 22 Blood Pressure 157/70 H 173/68 H 163/74 H Pulse Oximetry 100 99 100 06/11/18 04:00 06/11/18 05:00 06/11/18 06:00 Temperature 98.6 F Pulse Rate 61 59 L 66 Respiratory Rate 19 25 H 27 H Blood Pressure 156/68 H 152/68 H 161/70 H Pulse Oximetry 98 100 06/11/18 07:00 06/11/18 08:00 06/11/18 09:00 Temperature 99.7 F H 99.7 F H Pulse Rate 81 87 82 Respiratory Rate 27 H 27 H 19 Blood Pressure 160/76 H 160/76 H 160/76 H Pulse Oximetry 100 100 100 06/11/18 09:36 06/11/18 10:00 06/11/18 10:36 Temperature Pulse Rate 70 65 69 Respiratory Rate 19 16 Blood Pressure 142/94 H 152/67 H Pulse Oximetry 96 100 06/11/18 11:00 06/11/18 12:00 06/11/18 13:00 Temperature 97.9 F Pulse Rate 73 66 60 Respiratory Rate 27 H 21 20 Blood Pressure 145/65 H 145/63 H 139/59 L Pulse Oximetry 97 95 100 06/11/18 14:00 06/11/18 15:00 06/11/18 16:00 Temperature 98.3 F Pulse Rate 64 60 64 Respiratory Rate 28 H 25 H 26 H Blood Pressure 150/68 H 150/68 H 170/71 H Pulse Oximetry 100 100 99 06/11/18 17:00 06/11/18 18:00 06/11/18 18:05 Temperature Pulse Rate 63 64 63 Respiratory Rate 30 H 28 H Blood Pressure 152/68 H 150/67 H Pulse Oximetry 96 99 Intake & Output 06/10/18 06/11/18 06/11/18 18:59 06:59 18:59 Intake Total 58.5 / 58.5 Output Total 550 / 550 Balance 58.5 / 58.5 -550 / -550 Weight 72.4 kg 72.1 kg Intake: IV 58.5 / 58.5 Activase Drip 58.5 MG In Bag/ 58.5 / 58.5 Syringe 1 EACH @ 58.5 mls/hr IV .SIG ONCE ONE Rx#:[id number] Output: Urine Amount (Catheter) 550 / 550 Indwelling Urethral Catheter 550 / 550 Other: Date of Last Bowel Movement 06/09/18 06/09/18 - Constitutional no acute distress, thin, chronically ill appearing - Routine Neck Exam Present: supple, full ROM - Routine Respiratory Exam Present: rhonchi - Routine Cardiovascular Exam Present: RRR, S1, S2 - Routine Abdominal Exam Present: soft, normoactive bowel sounds - Routine Extremities Exam Present: pulses intact, AV fistula. Absent: edema - Routine Skin Exam Present: intact, dry, warm - Routine Neurological Exam Present: alert, motor deficit, hemineglect Results - Lab Results 06/11/18 18:07 06/11/18 18:07 - Image Kidney/bladder ultrasound: other (not required) Assessment and Plan - Assessment (1) Renal failure, chronic Code(s): N18.9 - Chronic kidney disease, unspecified Status: Acute Plan: We will dialyze tomorrow and MWF. Obtain labs in AM. Pending swallow eval, high protein diet should be offered. May need IVF if not able to swallow. Avoid procedures in left arm. Remove Buck. (2) Acute right MCA stroke Code(s): I63.511 - Cerebral infarction due to unspecified occlusion or stenosis of right middle cerebral artery Status: Acute Plan: Management per neurology. (3) Hypertension Code(s): I10 - Essential (primary) hypertension Status: Acute Plan: Continue medications as ordered. <Andrea Elizondo - Last Filed: 06/11/18 21:48> History of Present Illness Primary Care Provider: Thomas Escobedo [facility] - Medical History Medical History: Medical History (Last Reviewed 06/11/18 @ 13:34 by Sabina Hsu) AV fistula Pacemaker Renal failure Medications and Allergies Active Medications: Active Medications Acetaminophen (Tylenol) 650 mg PO UNSCH PRN PRN Reason: SEE LABEL COMMENTS Chlorhexidine Gluconate (Chlorhexidine 2% Cloth) 3 pack TOPICAL DAILY@0400 PRN PRN Reason: Extra cloth needed Stop: 06/16/18 03:59 Chlorhexidine Gluconate (Chlorhexidine 2% Cloth) 3 pack TOPICAL DAILY@0400 HELLEN Stop: 06/16/18 03:59 Last Admin: 06/11/18 04:53 Dose: 3 pack Clonidine HCl (Catapres) 0.1 mg PO UNSCH PRN PRN Reason: SEE LABEL COMMENTS Dextrose (D50w Vial) 50 ml IV.PUSH UNSCH PRN PRN Reason: PER HYPOGLYCEMIA PROTOCOL Diphenhydramine HCl (Benadryl) 25 mg PO UNSCH PRN PRN Reason: SEE LABEL COMMENTS Enalaprilat (Vasotec Inj) 1.25 mg IV.PUSH Q4H PRN PRN Reason: For SBP > 220 or DBP > 120 Last Admin: 06/11/18 15:08 Dose: 1.25 mg Gelatin (Gelfoam 12 Mm/7 Mm Topical) 1 foam TOPICAL PRN PRN PRN Reason: help stop bleeding from site Gentamicin Sulfate (Gentamicin Inj) 20 mg OTHER WITH DIALYSIS PRN PRN Reason: Dwell Gentamycin Lock Glucagon (Glucagon Inj) 1 mg OTHER UNSCH PRN PRN Reason: for Hypoglycemia Protocol Heparin Sodium (Porcine) (Heparin Inj) 8,000 units OTHER WITH DIALYSIS PRN PRN Reason: for machine prime Heparin Sodium (Porcine) (Heparin Inj) 1,000 units OTHER WITH DIALYSIS PRN PRN Reason: Dwell Heparin to Fill Catheter Nicardipine HCl 25 mg/ Sodium (Chloride) 250 mls @ 50 mls/hr IV.CONT TITRATE PRN; Protocol PRN Reason: Per Protocol Last Titration: 06/11/18 00:15 Dose: 0 mg/hr, 0 mls/hr Albumin Human (Flexbumin 25% Inj) 100 mls @ 60 mls/hr IV.SIG WITH DIALYSIS PRN PRN Reason: hypotension / volume replace Sodium Chloride (Ns Inj) 1,000 mls @ 0 mls/hr OTHER .Q0M PRN PRN Reason: for prime and rinse back Sodium Chloride (Ns Inj) 1,000 mls @ 200 mls/hr OTHER .Q5H PRN PRN Reason: for dialyzer flush PRN Sodium Chloride (Ns Inj) 1,000 mls @ 0 mls/hr IV.CONT .Q0M PRN PRN Reason: hypotension / volume replace Insulin Aspart (Novolog Insulin Correctional Sugar Inj) 0 unit SQ ACHS [facility]; Protocol Last Admin: 06/11/18 12:57 Dose: Not Given Labetalol HCl (Trandate Inj) 10 mg IV.PUSH Q2H PRN PRN Reason: For SBP > 220 or DBP > 120 Mannitol (Mannitol Inj) 12.5 gm IV.PUSH UNSCH PRN PRN Reason: hypotension / volume replace Nitroglycerin (Nitrostat Sl) 0.4 mg SL Q5M PRN PRN Reason: CHEST PAIN Ondansetron HCl (Zofran Inj) 4 mg IV.PUSH UNSCH PRN PRN Reason: NAUSEA OR VOMITING Ondansetron HCl (Zofran Inj) 4 mg IV.PUSH Q6H PRN PRN Reason: NAUSEA Last Admin: 06/11/18 15:40 Dose: 4 mg Pravastatin Sodium (Pravachol) 40 mg PO HS [facility] Last Admin: 06/11/18 21:39 Dose: Not Given Promethazine HCl (Phenergan Inj) 12.5 mg IM Q6H PRN PRN Reason: VOMITING Sodium Chloride (Ns Flush) 2 ml IV.FLUSH BID HLELEN Last Admin: 06/11/18 21:39 Dose: 2 ml Sodium Chloride (Ns Flush) 2 ml IV.FLUSH PRN PRN PRN Reason: FLUSH AFTER USING IV ACCESS Sodium Chloride (Ns Flush) 5 ml IV.FLUSH PRN PRN PRN Reason: flush each lumen during HD Exam Vital signs: Vital Signs 06/10/18 22:15 06/10/18 22:45 06/10/18 23:15 Temperature Pulse Rate 58 L 58 L 60 Respiratory Rate 27 H 27 H 23 Blood Pressure 146/65 H 152/68 H 141/63 H Pulse Oximetry 100 100 99 06/11/18 00:00 06/11/18 01:00 06/11/18 02:00 Temperature 98.8 F Pulse Rate 60 59 L 62 Respiratory Rate 21 19 20 Blood Pressure 140/65 157/70 H 173/68 H Pulse Oximetry 100 100 99 06/11/18 03:00 06/11/18 04:00 06/11/18 05:00 Temperature 98.6 F Pulse Rate 60 61 59 L Respiratory Rate 22 19 25 H Blood Pressure 163/74 H 156/68 H 152/68 H Pulse Oximetry 100 98 100 06/11/18 06:00 06/11/18 07:00 06/11/18 08:00 Temperature 99.7 F H 99.7 F H Pulse Rate 66 81 87 Respiratory Rate 27 H 27 H 27 H Blood Pressure 161/70 H 160/76 H 160/76 H Pulse Oximetry 100 100 06/11/18 09:00 06/11/18 09:36 06/11/18 10:00 Temperature Pulse Rate 82 70 65 Respiratory Rate 19 19 Blood Pressure 160/76 H 142/94 H Pulse Oximetry 100 96 06/11/18 10:36 06/11/18 11:00 06/11/18 12:00 Temperature 97.9 F Pulse Rate 69 73 66 Respiratory Rate 16 27 H 21 Blood Pressure 152/67 H 145/65 H 145/63 H Pulse Oximetry 100 97 95 06/11/18 13:00 06/11/18 14:00 06/11/18 15:00 Temperature Pulse Rate 60 64 60 Respiratory Rate 20 28 H 25 H Blood Pressure 139/59 L 150/68 H 150/68 H Pulse Oximetry 100 100 100 06/11/18 16:00 06/11/18 17:00 06/11/18 18:00 Temperature 98.3 F Pulse Rate 64 63 64 Respiratory Rate 26 H 30 H 28 H Blood Pressure 170/71 H 152/68 H 150/67 H Pulse Oximetry 99 96 99 06/11/18 18:05 Temperature Pulse Rate 63 Respiratory Rate Blood Pressure Pulse Oximetry Intake & Output 06/11/18 06/11/18 06/12/18 06:59 18:59 06:59 Output Total 550 / 550 Balance -550 / -550 Weight 72.1 kg Output: Urine Amount (Catheter) 550 / 550 Indwelling Urethral Catheter 550 / 550 Other: Date of Last Bowel Movement 06/09/18 06/09/18 Results - Lab Results 06/11/18 18:07 06/11/18 18:07 Most recent lab results Calcium 8.9 mg/dL (8.5-10.1) 06/11/18 18:07 Phosphorus 5.1 mg/dL (2.5-4.9) H 06/11/18 18:07 Assessment and Plan - Assessment (1) Renal failure, chronic Code(s): N18.9 - Chronic kidney disease, unspecified Status: Acute (2) Acute right MCA stroke Code(s): I63.511 - Cerebral infarction due to unspecified occlusion or stenosis of right middle cerebral artery Status: Acute (3) Hypertension Code(s): I10 - Essential (primary) hypertension Status: Acute - Attending Attestation patient was seen and examined. He is on home dialysis, on dialysis 4 times/ week. Last dialysis was on Friday. He was given tPA, cannulation of AVF today was not possible until late in the day. Labs were obtained, potassium is stable. Volume status is acceptable. We will dialyze him tomorrow. <Jannet Moody - Last Filed: 06/11/18 19:30> (1) Renal failure, chronic Qualifiers: Chronic kidney disease stage: stage 5 Qualified Code(s): N18.5 - Chronic kidney disease, stage 5 (3) Hypertension Qualifiers: Hypertension type: unspecified Qualified Code(s): I10 - Essential (primary) hypertension <Andrea Elizondo - Last Filed: 06/11/18 21:48> (1) Renal failure, chronic Qualifiers: Chronic kidney disease stage: stage 5 Qualified Code(s): N18.5 - Chronic kidney disease, stage 5 (3) Hypertension Qualifiers: Hypertension type: unspecified Qualified Code(s): I10 - Essential (primary) hypertension
[2018-06-11 19:09] LABS: Albumin 3.6 g/dL (3.4-5.0); Calcium 8.9 mg/dL (8.5-10.1); Carbon Dioxide 20.9 meq/L (21.0-32.0); Potassium 4.6 meq/L (3.5-5.1)
[2018-06-11 19:10] LABS: Phosphorus 5.1 mg/dL (2.5-4.9)
[2018-06-11 19:12] LABS: Chol/HDL Ratio 2.54 Ratio; HDL Cholesterol 39.7 mg/dL (40.0-60.0)
[2018-06-11 20:56] LABS: Hemoglobin A1c 7.1 % (4.3-6.0)
[2018-06-12] MEDS: Chlorhexidine Gluconate 2% 1 Pack (2 Cloths) TOPICAL SCH (04:30)
--- NOTE | 2018-06-12 06:13 | CT ---
EXAM DATE: 06/12/2018 5:48 AM EDT AGE/SEX: 63 years / Male INDICATIONS: Follow up acute embolic cva yesterday. CLINICAL DATA: This is the patient's subsequent encounter. Patient reports that signs and symptoms h ave been present for 1 day and indicates a pain score of 0/10. MEDICAL/SURGICAL HISTORY: Cerebrovascular disease. Renal failure. Pacemaker. RADIATION DOSE: 31.55 CTDI (mGy) COMPARISON: [facility] [place], CT HEAD W/O CONTRAST, 06/11/2018. . TECHNIQUE: CT of the head without contrast. Using automated exposure control and adjustment of the mA and/or kV according to patient size, radiation dose was kept as low as reasonably achievable to ob tain optimal diagnostic quality images. DICOM format image data is available electronically for revi ew and comparison. FINDINGS: The head is canted in the gantry creating asymmetries. Cerebrum: Stable size to the wedge-shaped hypodensity in the right posterior parietal and occipital lobe involving mid and high convexity. There is a new small linear hyperdensity in the high convexity occipital region, best seen on image #26 which may represent a small focal hemorrhage. No evidence o f mass effect. The ventricles are stable in size. No sulcal effacement. Posterior Fossa: The cerebellum and brainstem are intact. The 4th ventricle is midline. The cerebe llopontine angle is unremarkable. Extracranial: The visualized portion of the orbits is intact. Skull: The calvaria is intact. No evidence of skull fracture. CONCLUSION: Stable size to the right parietal-occipital infarction. Solitary small hyperdensity along the superio r margin probably represents a small hemorrhage. No evidence of mass effect or midline shift. Electronically signed by: Dayne Hunt MD 06/12/2018 6:12 AM EDT
--- NOTE | 2018-06-12 09:21 | P.PNCA ---
Subjective Interval history: Denies angina, dyspnea, palpitations, dizziness, PND. Physical Exam Vital signs: Vital Signs 06/11/18 09:36 06/11/18 10:00 06/11/18 10:36 Temperature Pulse Rate 70 65 69 Respiratory Rate 19 16 Blood Pressure 142/94 H 152/67 H Pulse Oximetry 96 100 06/11/18 11:00 06/11/18 12:00 06/11/18 13:00 Temperature 97.9 F Pulse Rate 73 66 60 Respiratory Rate 27 H 21 20 Blood Pressure 145/65 H 145/63 H 139/59 L Pulse Oximetry 97 95 100 06/11/18 14:00 06/11/18 15:00 06/11/18 16:00 Temperature 98.3 F Pulse Rate 64 60 64 Respiratory Rate 28 H 25 H 26 H Blood Pressure 150/68 H 150/68 H 170/71 H Pulse Oximetry 100 100 99 06/11/18 17:00 06/11/18 18:00 06/11/18 18:05 Temperature Pulse Rate 63 64 63 Respiratory Rate 30 H 28 H Blood Pressure 152/68 H 150/67 H Pulse Oximetry 96 99 06/11/18 20:00 06/11/18 22:00 06/11/18 22:14 Temperature 99.8 F H Pulse Rate 61 62 Respiratory Rate 32 H Blood Pressure 175/78 H Pulse Oximetry 94 L 99 06/12/18 00:00 06/12/18 01:00 06/12/18 02:00 Temperature 101.6 F H 99.1 F Pulse Rate 62 59 L Respiratory Rate 37 H 23 Blood Pressure 176/73 H Pulse Oximetry 97 06/12/18 04:00 06/12/18 06:00 06/12/18 08:00 Temperature 98.7 F 98.1 F Pulse Rate 60 60 60 Respiratory Rate 28 H 24 Blood Pressure 133/64 166/67 H Pulse Oximetry 100 92 L 06/12/18 08:49 Temperature Pulse Rate Respiratory Rate Blood Pressure Pulse Oximetry 94 L Intake & Output 06/11/18 06/12/18 06/12/18 18:59 06:59 18:59 Intake Total 350 / 350 Output Total 350 / 350 Balance 0 / 0 Weight 71.7 kg Intake: IV 350 / 350 Cardene Inj 25 MG In NS Inj 240 250 / 250 ML @ 5 MG/HR 50 mls/hr IV.CONT TITRATE PRN Rx#:[id number] Ofirmev Inj 1,000 mg In 100 ml 100 / 100 @ 400 mls/hr IV.SIG Q6H PRN Rx# :[id number] Output: Urine Amount (Catheter) 350 / 350 Indwelling Urethral Catheter 350 / 350 Other: Date of Last Bowel Movement 06/09/18 06/12/18 06/12/18 - Constitutional no acute distress - Routine Neck Exam Absent: JVD - Routine Respiratory Exam Present: CTA bilaterally - Routine Cardiovascular Exam Present: RRR, S1, S2. Absent: murmur, gallop - Routine Abdominal Exam Present: soft, normoactive bowel sounds. Absent: tenderness, organomegaly - Routine Extremities Exam Absent: cyanosis, clubbing, edema - Urinary Catheter Management Indwelling Urethral Catheter Cath placed during this visit: yes Reason for continuing: Hourly intake/output Insertion date: 06/10/18 Insertion time: 16:40 Assessment and Plan - Assessment (1) Acute right MCA stroke Code(s): I63.511 - Cerebral infarction due to unspecified occlusion or stenosis of right middle cerebral artery Status: Acute Plan: Unable to pass JAVIER probe yesterday even with video/laryngoscope guidance, may have esophageal stricture. Good quality surface echo shows no cardiac source of embolism, no intracardiac shunt (negative bubble study). Interrogation of his pacemaker shows he has a lead-less device that has no recording capabilities. Recommend 3-4 week monitor as outpatient to help rule out atrial fibrillation. (2) Coronary artery disease Code(s): I25.10 - Atherosclerotic heart disease of [place] coronary artery without angina pectoris Status: Chronic Plan: Stable. No recent angina. History of CABG 2013. Would resume his usual home cardiac medications as listed in consult note when patient able to take oral medications. (3) Hypertension Code(s): I10 - Essential (primary) hypertension Status: Acute Plan: Fluctuating BP's, mostly hypertensive. Patient s/p CVA, to keep BP's on higher side. - Plan Code Status: full code Discussed Condition With: patient (2) Coronary artery disease Qualifiers: Coronary Disease-Associated Artery/Lesion type: [place] artery [place] vs. transplanted heart: [place] heart Associated angina: without angina Qualified Code(s): I25.10 - Atherosclerotic heart disease of [place] coronary artery without angina pectoris (3) Hypertension Qualifiers: Hypertension type: essential hypertension Qualified Code(s): I10 - Essential (primary) hypertension
[2018-06-12] MEDS: Insulin NovoLOG Aspart Correctional Sugar Inj SQ SCH ×6 (09:27→21:05)
[2018-06-12] MEDS ORDERED: fentaNYL Citrate Inj 100 MCG/2 ML Ampul ONE (12:07)
[2018-06-12] MEDS ORDERED: Etomidate Inj 40 MG/20 ML Vial IV.PUSH ONE (12:07)
--- NOTE | 2018-06-12 12:20 | P.PNIM ---
Subjective Interval history: f/u; CVA somewhat lethargic but easily arousable. noted that had a fever spike last night. still with left-sided weakness. d/w the RN. Physical Exam Vital signs: Vital Signs 06/11/18 13:00 06/11/18 14:00 06/11/18 15:00 Temperature Pulse Rate 60 64 60 Respiratory Rate 20 28 H 25 H Blood Pressure 139/59 L 150/68 H 150/68 H Pulse Oximetry 100 100 100 06/11/18 16:00 06/11/18 17:00 06/11/18 18:00 Temperature 98.3 F Pulse Rate 64 63 64 Respiratory Rate 26 H 30 H 28 H Blood Pressure 170/71 H 152/68 H 150/67 H Pulse Oximetry 99 96 99 06/11/18 18:05 06/11/18 20:00 06/11/18 22:00 Temperature 99.8 F H Pulse Rate 63 61 62 Respiratory Rate 32 H Blood Pressure 175/78 H Pulse Oximetry 94 L 06/11/18 22:14 06/12/18 00:00 06/12/18 01:00 Temperature 101.6 F H 99.1 F Pulse Rate 62 Respiratory Rate 37 H 23 Blood Pressure 176/73 H Pulse Oximetry 99 97 06/12/18 02:00 06/12/18 04:00 06/12/18 06:00 Temperature 98.7 F Pulse Rate 59 L 60 60 Respiratory Rate 28 H Blood Pressure 133/64 Pulse Oximetry 100 06/12/18 08:00 06/12/18 08:49 06/12/18 10:00 Temperature 98.1 F Pulse Rate 60 60 Respiratory Rate 24 Blood Pressure 166/67 H Pulse Oximetry 92 L 94 L Intake & Output 06/11/18 06/12/18 06/12/18 18:59 06:59 18:59 Intake Total 350 / 350 Output Total 350 / 350 Balance 0 / 0 Weight 71.7 kg Intake: IV 350 / 350 Cardene Inj 25 MG In NS Inj 240 250 / 250 ML @ 5 MG/HR 50 mls/hr IV.CONT TITRATE PRN Rx#:[id number] Ofirmev Inj 1,000 mg In 100 ml 100 / 100 @ 400 mls/hr IV.SIG Q6H PRN Rx# :[id number] Output: Urine Amount (Catheter) 350 / 350 Indwelling Urethral Catheter 350 / 350 Other: Date of Last Bowel Movement 06/09/18 06/12/18 06/12/18 - Constitutional no acute distress - Routine Respiratory Exam Present: CTA bilaterally - Routine Cardiovascular Exam Present: RRR - Routine Abdominal Exam Present: soft - Routine Extremities Exam Comments: no pedal edema. - Routine Neurological Exam lethargic but easily arousable. - Urinary Catheter Management Indwelling Urethral Catheter Cath placed during this visit: yes Reason for continuing: Hourly intake/output Insertion date: 06/10/18 Insertion time: 16:40 Results - Labs CBC & Chem 7: 06/11/18 18:07 06/11/18 18:07 Laboratory Results - last 24 hr 06/11/18 06/11/18 06/11/18 06:00 18:07 18:07 WBC RBC Hgb Hct MCV MCH MCHC RDW Plt Count MPV Sodium Potassium Chloride Carbon Dioxide Anion Gap BUN Creatinine Estimated GFR POC Glucose Random Glucose Hemoglobin A1c 7.1 H Calcium Phosphorus Albumin Triglycerides Cancelled Cholesterol Cancelled LDL Cholesterol, Calc Cancelled HDL Cholesterol Cancelled Cholesterol/HDL Ratio Cancelled Nasal Screen MRSA (PCR) Not detected 06/11/18 06/11/18 06/12/18 18:07 18:07 00:05 WBC 12.7 H RBC 3.83 L Hgb 12.0 L Hct 36.3 L MCV 94.7 MCH 31.4 MCHC 33.2 RDW 13.7 Plt Count 149 L MPV 8.4 Sodium 140 Potassium 4.6 Chloride 105 Carbon Dioxide 20.9 L Anion Gap 14 BUN 64 H Creatinine 4.44 H Estimated GFR 13 L POC Glucose 235 H Random Glucose 209 H Hemoglobin A1c Calcium 8.9 Phosphorus 5.1 H Albumin 3.6 Triglycerides 122 Cholesterol 101 L LDL Cholesterol, Calc 37 HDL Cholesterol 39.7 L Cholesterol/HDL Ratio 2.54 Nasal Screen MRSA (PCR) 06/12/18 06/12/18 09:24 11:50 WBC RBC Hgb Hct MCV MCH MCHC RDW Plt Count MPV Sodium Potassium Chloride Carbon Dioxide Anion Gap BUN Creatinine Estimated GFR POC Glucose 231 H 235 H Random Glucose Hemoglobin A1c Calcium Phosphorus Albumin Triglycerides Cholesterol LDL Cholesterol, Calc HDL Cholesterol Cholesterol/HDL Ratio Nasal Screen MRSA (PCR) - Imaging Impressions Head CT 06/11/18 16:30 CONCLUSION: 1. Large wedge-shaped area of progressive decreased attenuation involving the white matter and boothe matter of the right parietal lobe and occipital lobe consistent with evolving infarct. There is mild mass effect upon the adjacent right ventricle without significant narrowing of the ventricle and no evidence of midline shift or transtentorial herniation. 2. No evidence of hemorrhagic transformation. . Head CT 06/12/18 06:00 CONCLUSION: Stable size to the right parietal-occipital infarction. Solitary small hyperdensity along the superior margin probably represents a small hemorrhage. No evidence of mass effect or midline shift. Assessment and Plan - Plan Acute CVA -Status post TPA administration -s/p JAVIER with no obvious cardiac source of embolism or intracardiac shunt. -interrogation of pacemaker showed that he had a lead-less device with no recording capabilities- recommended 3-4 week monitor as outpatient to r/o a-fib. -Neuro checks per unit protocol -Repeat CT head with stable right parietal-occipital infarction with questionable small hemorrhage. d/w ; recommended CT had to be repeated tomorrow. -PT and OT as tolerated -Further management per neurology including antiplatelet therapy. -keep NPO for now and continue with IV fluid; will consider NG tube tomorrow pending clinical course. Fever/ with bilateral infiltrate on CXR- possible pneumonia - will obtain the blood cultures 0 start on broad spectrum IV antibiotics ESRD-on home dialysis- nephrology following. Hypertension -Cardene drip to keep SBP less than 180 -Labetalol and enalapril IV as needed Nausea/vomiting -Zofran and Phenergan as needed Dyslipidemia -Pravastatin DVT GI prophylaxis -Teds SCDs -No pharmacological DVT prophylaxis due to possible brain hemorrhage -Pepcid will keep in ICU for now for close monitoring. low threshold for machine iii coremaker re-evaluation. d/w and RN.
[2018-06-12] MEDS ORDERED: Vancomycin Inj 1 GM/200 ML PIGGYBACK IV.SIG ONE (12:29)
[2018-06-12] MEDS ORDERED: Vancomycin Consult Pharmacy OTHER PRN (12:30)
[2018-06-12] MEDS: Labetalol HCl Inj 100 MG/20 ML Vial IV.PUSH PRN ×2 (12:50→15:59)
[2018-06-12] MEDS: Propofol 1000 mg/100 ml Inj 1,000 MG/100 ML BOTTLE IV.CONT PRN ×2 (13:19→21:06)
--- NOTE | 2018-06-12 13:45 | XR ---
EXAM DATE: 06/12/2018 1:02 PM EDT AGE/SEX: 63 years / Male INDICATIONS: Intubation. CLINICAL DATA: This is the patient's initial encounter. Patient reports that signs and symptoms have been present for 1 day and indicates a pain score of Nonresponsive. MEDICAL/SURGICAL HISTORY: Non-responsive. Non-responsive. COMPARISON: C, CHEST 1V SINGLE AP, 06/10/2018. . FINDINGS: Support lines and tubes are in satisfactory position. There are findings of congestive heart failure with interstitial and alveolar opacity bilaterally. This is new when compared with the prior exam. There is left lower lobe atelectasis versus pneumonia. Small left effusion is present. CONCLUSION: Cardiomegaly and findings of congestive heart failure. This is new when compared with the prior exam . Electronically signed by: Raul Sawyer MD 06/12/2018 1:44 PM EDT
[2018-06-12] MEDS ORDERED: Vancomycin Inj 1,000 MG in Sodium Chlor 0.9% Inj 250 ML IV.SIG ONE (14:00)
[2018-06-12] MEDS ORDERED: Piperacil/Tazo 2.25 GM Premix 50 ML IV.SIG SCH ×2 (14:00→20:00)
--- NOTE | 2018-06-12 17:31 | P.PNNP ---
Subjective Interval history: Persisting left sided weakness, fever yesterday. Dialyzed today. Physical Exam Vital signs: Vital Signs 06/11/18 18:00 06/11/18 18:05 06/11/18 20:00 Temperature 99.8 F H Pulse Rate 64 63 61 Respiratory Rate 28 H 32 H Blood Pressure 150/67 H 175/78 H Pulse Oximetry 99 94 L 06/11/18 22:00 06/11/18 22:14 06/12/18 00:00 Temperature 101.6 F H Pulse Rate 62 62 Respiratory Rate 37 H Blood Pressure 176/73 H Pulse Oximetry 99 97 06/12/18 01:00 06/12/18 02:00 06/12/18 04:00 Temperature 99.1 F 98.7 F Pulse Rate 59 L 60 Respiratory Rate 23 28 H Blood Pressure 133/64 Pulse Oximetry 100 06/12/18 06:00 06/12/18 08:00 06/12/18 08:49 Temperature 98.1 F Pulse Rate 60 60 Respiratory Rate 24 Blood Pressure 166/67 H Pulse Oximetry 92 L 94 L 06/12/18 10:00 06/12/18 12:00 06/12/18 12:30 Temperature 97.5 F L Pulse Rate 60 74 Respiratory Rate 40 H 16 Blood Pressure 225/118 H Pulse Oximetry 80 L 100 06/12/18 14:00 06/12/18 16:00 06/12/18 16:35 Temperature Pulse Rate 70 78 Respiratory Rate 24 Blood Pressure Pulse Oximetry 100 Intake & Output 06/11/18 06/12/18 06/12/18 18:59 06:59 18:59 Intake Total 350 / 350 250 / 250 Output Total 350 / 350 Balance 0 / 0 250 / 250 Weight 71.7 kg Intake: IV 350 / 350 250 / 250 Cardene Inj 25 MG In NS Inj 240 250 / 250 ML @ 5 MG/HR 50 mls/hr IV.CONT TITRATE PRN Rx#:[id number] Ofirmev Inj 1,000 mg In 100 ml 100 / 100 @ 400 mls/hr IV.SIG Q6H PRN Rx# :[id number] Vancomycin Inj 1,000 MG In NS 250 / 250 Inj 250 ML @ 250 mls/hr IV.SIG ONCE ONE Rx#:[id number] Output: Urine Amount (Catheter) 350 / 350 Indwelling Urethral Catheter 350 / 350 Other: Date of Last Bowel Movement 06/09/18 06/12/18 06/12/18 Narrative: GENERAL: in NAD, SKIN: Warm and dry. HEAD: Atraumatic. Normocephalic. EYES: Pupils equal and round. No scleral icterus. ENT: No nasal bleeding or discharge. Mucous membranes pink and moist. NECK: Trachea midline. No JVD. CARDIOVASCULAR: Systolic murmur RESPIRATORY: No accessory muscle use. Clear to auscultation. Breath sounds equal bilaterally. GASTROINTESTINAL: Abdomen soft, non-tender, nondistended. MUSCULOSKELETAL: Extremities without clubbing, cyanosis, or edema. No obvious deformities. NEUROLOGICAL: Awake and alert. Mumbles inconsistently follows fall back asleep. Left facial weakness, left sided hemiplegia. - Urinary Catheter Management Indwelling Urethral Catheter Cath placed during this visit: yes Reason for continuing: Hourly intake/output Insertion date: 06/10/18 Insertion time: 16:40 Assessment and Plan - Assessment (1) Renal failure, chronic Code(s): N18.9 - Chronic kidney disease, unspecified Status: Acute Qualifiers: Chronic kidney disease stage: stage 5 Qualified Code(s): N18.5 - Chronic kidney disease, stage 5 Plan: We will continue dialysis MWF. Avoid Gadolinium. Monitor fluid and electrolytes. Obtain labs in AM. Pending swallow eval, high protein diet should be offered. May need IVF if not able to swallow. Protect access arm from IV and BP measurements. (2) Acute right MCA stroke Code(s): I63.511 - Cerebral infarction due to unspecified occlusion or stenosis of right middle cerebral artery Status: Acute Plan: Management per neurology. tPA administered, no improvement. (3) Hypertension Code(s): I10 - Essential (primary) hypertension Status: Acute Qualifiers: Hypertension type: essential hypertension Qualified Code(s): I10 - Essential (primary) hypertension Plan: Continue medications as ordered. - Attending Attestation Prognosis is poor in this gentleman.
--- NOTE | 2018-06-12 17:36 | ECHRPT ---
Indication: CE CONCLUSIONS Upper normal left ventricular cavity size. Wall thickness is normal. No wall motion abnormalities. The left ventricular systolic function is normal with an estimated ejection fraction in the range of 55-60%. Mild mitral valve regurgitation. There is mild tricuspid valve regurgitation. Slight aortic valve sclerosis is present. Normal atrial septal thickness without atrial level shunting by saline contrast study. BP: / HR: Rhythm: MEASUREMENTS (Male / Female) Normal Values Technical Quality: 2D ECHO LV Diastolic Diameter PLAX 5.4 cm 4.2 - 5.9 / 3.9 - 5.3 cm LV Systolic Diameter PLAX 4.5 cm IVS Diastolic Thickness 1.1 cm 0.6 - 1.0 / 0.6 - 0.9 cm LVPW Diastolic Thickness 1.0 cm 0.6 - 1.0 / 0.6 - 0.9 cm LV Relative Wall Thickness 0.4 LVOT Diameter 2.1 cm LV Ejection Fraction MOD 4C 55.6 % LV Ejection Fraction 4C AL 58.8 % M-MODE Aortic Root Diameter MM 2.7 cm LA Systolic Diameter MM 4.7 cm LA Ao Ratio MM 1.7 AV Cusp Separation MM 1.2 cm DOPPLER AV Peak Velocity 121.0 cm/s AV Peak Gradient 5.9 mmHg LVOT Peak Velocity 99.2 cm/s LVOT Peak Gradient 3.9 mmHg AV Area Cont Eq pk 2.8 cm MV Area PHT 4.5 cm Mitral E Point Velocity 121.0 cm/s Mitral A Point Velocity 65.6 cm/s Mitral E to A Ratio 1.8 PV Peak Velocity 100.0 cm/s PV Peak Gradient 4.0 mmHg FINDINGS LEFT VENTRICLE Upper normal left ventricular cavity size. Wall thickness is normal. No wall motion abnormalities. The left ventricular systolic function is normal with an estimated ejection fraction in the range of 55-60%. RIGHT VENTRICLE Normal right ventricular size and systolic function. LEFT ATRIUM The left atrial size is normal. RIGHT ATRIUM The right atrial size is upper normal. ATRIAL SEPTUM Normal atrial septal thickness without atrial level shunting by saline contrast study. AORTA The aortic root and proximal ascending aorta are normal in size on limited imaging. MITRAL VALVE Mild mitral valve regurgitation. AORTIC VALVE Slight aortic valve sclerosis is present. TRICUSPID VALVE There is mild tricuspid valve regurgitation. PULMONARY VALVE The pulmonary valve is not well visualized. VESSELS The inferior vena cava is normal in size. PERICARDIUM No pericardial effusion. Dominick Turner MD (Electronically Signed) Final Date:12 June 2018 09:45
[2018-06-12 17:37] LABS: Hepatitits B Surface Antigen Nonreactive (Nonreactive)
[2018-06-12 17:56] LABS: Hepatitis A IgM Antibody Nonreactive (Nonreactive)
[2018-06-12 18:25] LABS: ABG Base Excess 5.5 mmol/L (-2-2); ABG PCO2 28 mmHg (38-42); ABG PO2 283 mmHg (61-120)
--- NOTE | 2018-06-12 19:34 | P.PCN ---
Date of procedure: 06/12/18 Pre-op diagnosis: Encephalopathy, acute respiratory failure, CVA Post-op diagnosis: same Procedure: Procedure: Endotracheal intubation Indication: Hypoxic respiratory failure, airway protection Sedation used: Etomidate 40 mg, fentanyl 200 Mcg, rocuronium 50 mg IV Procedure: Patient was preoxygenated with 100% oxygen via Ambu bag with bag mask ventilation, following induction of sedation and neuromuscular blockade, direct laryngoscopy was performed using a Mac 4 blade with good visualization of vocal cords however airway was anterior and ET tube could not be passed and subsequently patient was continued to be ventilated with bag mask ventilation and using a glide scope the vocal cords were visualized and an 8 Arabic ET tube was passed through the vocal cords under direct visualization up to the 23 centimeter bambi and after inflating cuff of ET tube, correct placement was confirmed using bagging with good color change on CO2 detector, 5 point auscultation and chest rise with ventilation. Patient was connected to mechanical ventilation. Patient tolerated the procedure well with no immediate complications noted. Postprocedure chest x-ray was ordered.
--- NOTE | 2018-06-12 19:53 | P.PNCC ---
Subjective Subjective Remarks/Hospital Course: 06/10: 63-year-old male with a history of hypertension, renal failure, dialysis dependent, presents as a stroke alert. Patient was last seen normal at 1500 p.m. which was within the 3 hour limit. Patient apparently was seen normal and then found in a room at the [facility] with left-sided weakness and a right- sided gaze. The patient initially did not want to go the hospital and was encouraged by the EMS staff to come. He denies any pain. He understands that he is having a stroke. He was unable to move his left upper extremity or left lower extremity. The TPA was administered in the emergency department. CTA of the head and neck shows the intracerebral vasculature is normal in caliber without evidence of aneurysm or abnormal truncation. The patient has been admitted to ICU stroke TPa protocol. 06/11: Resting in bed. Having episodes of nausea. Continues to have left-sided hemiplegia. 06/12: Patient developed worsening respiratory distress with dropping O2 sats requiring supplemental O2 however his O2 sats dropped to the mid 80s and he appeared to be significantly short of breath. He was also having encephalopathy with fluctuating mental status and significant nausea. Head CT done earlier revealed slight hemorrhagic conversion in the area of his infarct. Dr. Do asked that I see the patient as reconsult. decision was made to intubate and I proceeded with endotracheal intubation and patient was placed on mechanical ventilation. Postprocedure chest x-ray showed ET tube in appropriate position and pulmonary edema pattern. Immediately following intubation patient was dilated with removal of around 3.5 L of fluid. Objective Vital Signs / I&O: Vital Signs 06/11/18 20:00 06/11/18 22:00 06/11/18 22:14 Temperature 99.8 F H Pulse Rate 61 62 Respiratory Rate 32 H Blood Pressure 175/78 H Pulse Oximetry 94 L 99 06/12/18 00:00 06/12/18 01:00 06/12/18 02:00 Temperature 101.6 F H 99.1 F Pulse Rate 62 59 L Respiratory Rate 37 H 23 Blood Pressure 176/73 H Pulse Oximetry 97 06/12/18 04:00 06/12/18 06:00 06/12/18 08:00 Temperature 98.7 F 98.1 F Pulse Rate 60 60 60 Respiratory Rate 28 H 24 Blood Pressure 133/64 166/67 H Pulse Oximetry 100 92 L 09/07/18 08:49 06/12/18 10:00 06/12/18 12:00 Temperature 97.5 F L Pulse Rate 60 74 Respiratory Rate 40 H Blood Pressure 225/118 H Pulse Oximetry 94 L 80 L 06/12/18 12:30 06/12/18 14:00 06/12/18 16:00 Temperature 98.1 F Pulse Rate 70 76 Respiratory Rate 16 27 H Blood Pressure 118/57 L Pulse Oximetry 100 100 06/12/18 16:35 06/12/18 18:00 06/12/18 19:31 Temperature Pulse Rate 81 Respiratory Rate 24 18 Blood Pressure Pulse Oximetry 100 100 Intake & Output 06/12/18 06/12/18 06/13/18 06:59 18:59 06:59 Intake Total 350 / 350 300 / 300 Output Total 350 / 350 250 / 250 Balance 0 / 0 50 / 50 Weight 71.7 kg Intake: IV 350 / 350 300 / 300 Cardene Inj 25 MG In NS Inj 240 250 / 250 ML @ 5 MG/HR 50 mls/hr IV.CONT TITRATE PRN Rx#:[id number] Ofirmev Inj 1,000 mg In 100 ml 100 / 100 @ 400 mls/hr IV.SIG Q6H PRN Rx# :[id number] Zosyn 2.25 GM Premix 50 ML @ 50 / 50 100 mls/hr IV.SIG Q12H HELLEN Rx#: [id number] Vancomycin Inj 1,000 MG In NS 250 / 250 Inj 250 ML @ 250 mls/hr IV.SIG ONCE ONE Rx#:[id number] Output: Urine Amount (Catheter) 350 / 350 50 / 50 Indwelling Urethral Catheter 350 / 350 50 / 50 Gastric Drainage 200 / 200 Orogastric Tube 200 / 200 Other: Date of Last Bowel Movement 06/12/18 06/12/18 # Incontinent Bowel Movements 2 Result Diagrams: 06/11/18 18:07 06/11/18 18:07 Imaging: Chest X-Ray 06/10/18 16:08 CONCLUSION: Bilateral perihilar airspace opacities which may reflect a diffuse infectious process versus edema from congestive heart failure. Left-sided pleural effusion , small. Head CT 06/10/18 16:08 CONCLUSION: 1. No acute findings. Report was called by [Dr. Wilhelm to Dr. Shin at 4:20 PM on June 10, 2018. ] Head CTA 06/10/18 16:08 CONCLUSION: 1. Atherosclerosis identified within the region of the carotid bulb without significant luminal narrowing. The intracerebral vasculature is otherwise normal in caliber without evidence of aneurysm or abnormal truncation. Neck CTA 06/10/18 16:08 CONCLUSION: 1. No evidence for hemodynamically significant stenosis. Head CT 06/11/18 16:30 CONCLUSION: 1. Large wedge-shaped area of progressive decreased attenuation involving the white matter and boothe matter of the right parietal lobe and occipital lobe consistent with evolving infarct. There is mild mass effect upon the adjacent right ventricle without significant narrowing of the ventricle and no evidence of midline shift or transtentorial herniation. 2. No evidence of hemorrhagic transformation. . Head CT 06/12/18 06:00 CONCLUSION: Stable size to the right parietal-occipital infarction. Solitary small hyperdensity along the superior margin probably represents a small hemorrhage. No evidence of mass effect or midline shift. Chest X-Ray 06/12/18 12:44 CONCLUSION: Cardiomegaly and findings of congestive heart failure. This is new when compared with the prior exam. Objective Remarks: HEENT/ Neuro: Sedated, orally intubated, Pallor present, no icterus, tongue/ mucosa moist, left rachael-paresis Neck: No JVD Chest/Pulm: on mech vent, good air entry bilaterally, no wheezing or crackles CVS: S1-S2 regular, no murmur GI/abdomen: soft, nontender, bowel sounds sluggish Extremities: warm bilaterally, no edema Procedures: - Routine HEENT Exam Head: Present: normocephalic, atraumatic Eye: Present: PERRL, normal accommodation - Routine Neck Exam Present: supple, full ROM. Absent: JVD, carotid bruit - Routine Chest/Breast/Axilla Exam Chest wall: Present: pacemaker. Absent: tenderness, mass - Routine Cardiovascular Exam Present: RRR, S1, S2 - Routine Abdominal Exam Present: soft, normoactive bowel sounds. Absent: tenderness, distended - Routine Extremities Exam Absent: cyanosis, clubbing, edema - Routine Skin Exam Present: intact. Absent: cyanosis, erythema - Routine Neurological Exam Present: alert, oriented X3 Right gaze preference, left hemineglect, left hemiplegia on the upper and lower extremities Assessment and Plan - Assessment and Plan Plan: Acute CVA -Status post TPA administration -Neuro checks per unit protocol -Repeat CT head with minimal hemorrhagic transformation in area of right parieto -occipital infarct. Neurosurgery following -PT and OT as tolerated -Further management per neurology -Status post JAVIER Acute respiratory failure on mechanical ventilation Pulmonary edema Possible aspiration -Continue mechanical ventilation, vent bundle, bronchodilators as needed. -Sputum Gram stain and cultures sent. Blood cultures pending -Empiric antibiotic coverage with IV Zosyn started 06/12 ESRD -Continue hemodialysis per renal Hypertension -Cardene drip to keep SBP less than 180 -Labetalol and enalapril IV as needed Nausea/vomiting -Zofran and Phenergan as needed Dyslipidemia -Pravastatin DVT GI prophylaxis -Teds SCDs -No pharmacological DVT prophylaxis 24 hours post TPA -Pepcid Discussed with patient's regarding current clinical status and plan of care and she voiced understanding. Condition critical Time spent on critical care excluding procedures 45 minutes
[2018-06-12 21:55] LABS: Baso % (Auto) 0.7 % (0.0-2.0); Hematocrit 38.2 % (39.0-51.0); Hemoglobin 13.2 gm/dL (13.0-17.0); Lymph # (Auto) 1.4 th/mm3 (1.0-4.8); Lymph % (Auto) 19.2 % (9.0-44.0); Mean Corpuscular HGB Conc 34.7 % (32.0-36.0); Mean Corpuscular Hemoglobin 31.8 pg (27.0-34.0); Mean Corpuscular Volume 91.8 fL (80.0-100.0); Mean Platelet Volume 8.9 fL (7.0-11.0); Mono # (Auto) 0.6 th/mm3 (0.0-0.9); Mono % (Auto) 8.5 % (0.0-8.0); Neut # (Auto) 5.3 th/mm3 (1.8-7.7); Neut % (Auto) 71.6 % (16.0-70.0); Platelet Count 120 th/mm3 (150-450); Red Blood Count 4.16 mil/mm3 (4.50-5.90); Red Cell Distribution Width 13.9 % (11.6-17.2); White Blood Count 7.4 th/mm3 (4.0-11.0)
[2018-06-13] MEDS: Piperacil/Tazo 2.25 GM Premix 50 ML IV.SIG SCH ×3 (00:17→16:45)
[2018-06-13] MEDS: Chlorhexidine Gluconate 2% 1 Pack (2 Cloths) TOPICAL SCH (04:41)
--- NOTE | 2018-06-13 06:02 | CT ---
EXAM DATE: 06/13/2018 5:18 AM EDT AGE/SEX: 63 years / Male INDICATIONS: Follow up acute embolic cva. CLINICAL DATA: This is the patient's subsequent encounter. Patient reports that signs and symptoms h ave been present for 3 days and indicates a pain score of 0/10. MEDICAL/SURGICAL HISTORY: . Renal failure. Pacemaker. RADIATION DOSE: 56.35 CTDI (mGy) [place] [facility] [place]. . TECHNIQUE: CT of the head without contrast. Using automated exposure control and adjustment of the mA and/or kV according to patient size, radiation dose was kept as low as reasonably achievable to ob tain optimal diagnostic quality images. DICOM format image data is available electronically for revi ew and comparison. FINDINGS: Cerebrum: There is been an interval change in the appearance of the right temporal parietal infarcti on with new areas of hyperdensity along the sylvian fissure and along the posterior superior margin; the new hyperdensities are characteristic of hemorrhage. The margins of the infarct are slightly bett er delineated on today's examination and there is loss of delineation of the boothe and white matter in terface. The area of involvement measures 6 cm in AP dimension. The lateral ventricles are symmetric in size. No evidence of midline shift. Posterior Fossa: The cerebellum and brainstem are intact. The 4th ventricle is midline. The cerebe llopontine angle is unremarkable. Extracranial: The visualized portion of the orbits is intact. Skull: The calvaria is intact. No evidence of skull fracture. CONCLUSION: 1. Evolving right temporoparietal infarction with new areas of hemorrhage along the medial and poste rior superior margins. . Electronically signed by: Dayne Hunt MD 06/13/2018 6:01 AM EDT
--- NOTE | 2018-06-13 06:26 | XR ---
EXAM DATE: 06/13/2018 5:36 AM EDT AGE/SEX: 63 years / Male INDICATIONS: Respiratory status. CLINICAL DATA: This is the patient's subsequent encounter. Patient reports that signs and symptoms h ave been present for 4 - 6 days and indicates a pain score of Nonresponsive. MEDICAL/SURGICAL HISTORY: Non-responsive. Non-responsive. COMPARISON: [facility], CHEST 1V SINGLE AP, 06/12/2018. . FINDINGS: Persistent left lower lung consolidation and blunting of left costophrenic angle with meniscal interf minerva characteristic of a combination of infiltrate and pleural effusion. The right lung is clear. ET t ube tip well above the honorio. Gastric tube tip and side-port project within the stomach. The heart i s normal size. Prior median sternotomy. Loop recorder device in place. CONCLUSION: Persistent left lower lung consolidation and pleural effusion. Electronically signed by: Dayne Hunt MD 06/13/2018 6:25 AM EDT
[2018-06-13] MEDS: Insulin NovoLOG Aspart Correctional Sugar Inj SQ SCH ×4 (09:13→21:35)
[2018-06-13] MEDS: amLODIPine 5 MG Tablet NG/OG SCH (09:23)
--- NOTE | 2018-06-13 10:11 | P.PN ---
Subjective Interval history: weekend coverage for Dr Hardwick Pt is intubated vent and on diprivan Physical Exam Vital signs: Vital Signs 06/12/18 12:00 06/12/18 12:30 06/12/18 14:00 Temperature 97.5 F L Pulse Rate 74 70 Respiratory Rate 40 H 16 Blood Pressure 225/118 H Pulse Oximetry 80 L 100 06/12/18 16:00 06/12/18 16:35 06/12/18 18:00 Temperature 98.1 F Pulse Rate 76 81 Respiratory Rate 27 H 24 Blood Pressure 118/57 L Pulse Oximetry 100 100 06/12/18 19:31 06/12/18 20:00 06/12/18 22:00 Temperature 100.3 F H Pulse Rate 76 71 Respiratory Rate 18 Blood Pressure 115/56 L Pulse Oximetry 100 100 06/12/18 23:22 06/13/18 00:00 06/13/18 02:00 Temperature 98.5 F Pulse Rate 70 70 Respiratory Rate 24 16 Blood Pressure 122/56 L Pulse Oximetry 100 99 06/13/18 04:00 06/13/18 04:01 06/13/18 06:00 Temperature 98.6 F Pulse Rate 63 60 Respiratory Rate 16 16 Blood Pressure 132/63 Pulse Oximetry 100 100 06/13/18 09:01 Temperature Pulse Rate Respiratory Rate 16 Blood Pressure Pulse Oximetry 100 Intake & Output 06/12/18 06/13/18 06/13/18 18:59 06:59 18:59 Intake Total 300 / 300 150 / 150 Output Total 250 / 250 415 / 415 Balance 50 / 50 -265 / -265 Weight 65.9 kg Intake: IV 300 / 300 150 / 150 Diprivan 1000 mg/100 ml Inj 1, 100 / 100 000 mg In 100 ml @ 5 MCG/KG/MIN 2.151 mls/hr IV.CONT TITRATE PRN Rx#:[id number] Zosyn 2.25 GM Premix 50 ML @ 50 / 50 50 / 50 100 mls/hr IV.SIG Q8H HELLEN Rx#: [id number] Vancomycin Inj 1,000 MG In NS 250 / 250 Inj 250 ML @ 250 mls/hr IV.SIG ONCE ONE Rx#:[id number] Output: Urine Amount (Catheter) 50 / 50 15 / 15 Indwelling Urethral Catheter 50 / 50 15 / 15 Gastric Drainage 200 / 200 400 / 400 Orogastric Tube 200 / 200 400 / 400 Other: Date of Last Bowel Movement 06/12/18 06/13/18 # Incontinent Bowel Movements 2 1 Narrative: intub vent sedated diprivan pupils pp no gaze not following no w/d ue wd le both to stimuli and ?triple flex response. - Urinary Catheter Management Indwelling Urethral Catheter Cath placed during this visit: yes Reason for continuing: Hourly intake/output Insertion date: 06/10/18 Insertion time: 16:40 Results - Labs CBC & Chem 7: 06/12/18 21:27 06/11/18 18:07 Laboratory Results - last 24 hr 06/12/18 06/12/18 06/12/18 11:50 15:55 18:01 WBC RBC Hgb Hct MCV MCH MCHC RDW Plt Count MPV Neut % (Auto) Lymph % (Auto) Tift % (Auto) Eos % (Auto) Baso % (Auto) Neut # (Auto) Lymph # (Auto) Tift # (Auto) Eos # (Auto) Baso # (Auto) WBC Differential Differential Comment Puncture Site Patient Temperature O2 Saturation ABG pH ABG pCO2 ABG pO2 ABG HCO3 ABG O2 Content ABG Base Excess ABG Methemoglobin Reese Test Hemoglobin Carboxyhemoglobin O2 Delivery Device Vent Setting Inspired O2 Critical Value POC Glucose 235 H 130 H Hepatitis A IgM Ab Nonreactive Hep Bs Antigen Nonreactive Hep B Core IgM Ab Nonreactive Hep C IgG Ab Nonreactive 06/12/18 06/12/18 06/12/18 18:12 20:59 21:27 WBC 7.4 RBC 4.16 L Hgb 13.2 Hct 38.2 L MCV 91.8 MCH 31.8 MCHC 34.7 RDW 13.9 Plt Count 120 L MPV 8.9 Neut % (Auto) 71.6 H Lymph % (Auto) 19.2 Tift % (Auto) 8.5 H Eos % (Auto) 0.0 Baso % (Auto) 0.7 Neut # (Auto) 5.3 Lymph # (Auto) 1.4 Tift # (Auto) 0.6 Eos # (Auto) 0.0 Baso # (Auto) 0.0 WBC Differential . Differential Comment Auto diff final Puncture Site Right radial Patient Temperature 98.6 O2 Saturation 97 ABG pH 7.60 H* ABG pCO2 28 L ABG pO2 283 H ABG HCO3 28 H ABG O2 Content 20.1 H ABG Base Excess 5.5 H ABG Methemoglobin 1.4 Reese Test Present Hemoglobin 14.2 Carboxyhemoglobin 1.0 O2 Delivery Device Ventilator Vent Setting Prvc/ac Inspired O2 70 Critical Value Yes POC Glucose 133 H Hepatitis A IgM Ab Hep Bs Antigen Hep B Core IgM Ab Hep C IgG Ab 06/13/18 08:54 WBC RBC Hgb Hct MCV MCH MCHC RDW Plt Count MPV Neut % (Auto) Lymph % (Auto) Tift % (Auto) Eos % (Auto) Baso % (Auto) Neut # (Auto) Lymph # (Auto) Tift # (Auto) Eos # (Auto) Baso # (Auto) WBC Differential Differential Comment Puncture Site Patient Temperature O2 Saturation ABG pH ABG pCO2 ABG pO2 ABG HCO3 ABG O2 Content ABG Base Excess ABG Methemoglobin Reese Test Hemoglobin Carboxyhemoglobin O2 Delivery Device Vent Setting Inspired O2 Critical Value POC Glucose 203 H Hepatitis A IgM Ab Hep Bs Antigen Hep B Core IgM Ab Hep C IgG Ab Microbiology 06/12/18 12:45 Sputum - Endotracheal Gram Stain - Final - Imaging Impressions Chest X-Ray 06/12/18 12:44 CONCLUSION: Cardiomegaly and findings of congestive heart failure. This is new when compared with the prior exam. Head CT 06/13/18 00:00 CONCLUSION: 1. Evolving right temporoparietal infarction with new areas of hemorrhage along the medial and posterior superior margins. . Chest X-Ray 06/13/18 05:00 CONCLUSION: Persistent left lower lung consolidation and pleural effusion. Assessment and Plan - Assessment (1) Acute right MCA stroke Code(s): I63.511 - Cerebral infarction due to unspecified occlusion or stenosis of right middle cerebral artery Status: Acute (2) Hypertension Code(s): I10 - Essential (primary) hypertension Status: Acute (3) Chronic kidney disease Code(s): N18.9 - Chronic kidney disease, unspecified Status: Acute (4) Renal failure, chronic Code(s): N18.9 - Chronic kidney disease, unspecified Status: Acute - Plan cva right hemispheric s/p tpa increased hemorrhagic conversion. cont f/u ct brain in am no ac or antiplatelets scds would ask nsx to see pt as well. (2) Hypertension Qualifiers: Hypertension type: essential hypertension Qualified Code(s): I10 - Essential (primary) hypertension (3) Chronic kidney disease Qualifiers: Chronic kidney disease stage: unspecified stage Qualified Code(s): N18.9 - Chronic kidney disease, unspecified (4) Renal failure, chronic Qualifiers: Chronic kidney disease stage: stage 5 Qualified Code(s): N18.5 - Chronic kidney disease, stage 5
[2018-06-13 10:41] LABS: Baso % (Auto) 0.5 % (0.0-2.0); Eos % (Auto) 0.1 % (0.0-4.0); Hematocrit 39.4 % (39.0-51.0); Hemoglobin 13.2 gm/dL (13.0-17.0); Lymph # (Auto) 1.1 th/mm3 (1.0-4.8); Lymph % (Auto) 12.8 % (9.0-44.0); Mean Corpuscular HGB Conc 33.6 % (32.0-36.0); Mean Corpuscular Hemoglobin 31.7 pg (27.0-34.0); Mean Corpuscular Volume 94.1 fL (80.0-100.0); Mean Platelet Volume 8.5 fL (7.0-11.0); Mono # (Auto) 0.7 th/mm3 (0.0-0.9); Mono % (Auto) 8.1 % (0.0-8.0); Neut # (Auto) 6.8 th/mm3 (1.8-7.7); Neut % (Auto) 78.5 % (16.0-70.0); Platelet Count 117 th/mm3 (150-450); Red Blood Count 4.18 mil/mm3 (4.50-5.90); Red Cell Distribution Width 13.8 % (11.6-17.2); White Blood Count 8.7 th/mm3 (4.0-11.0)
[2018-06-13 11:09] LABS: Alanine Aminotransferase 14 U/L (12-78); Albumin 2.9 g/dL (3.4-5.0); Alkaline Phosphatase 74 U/L (45-117); Anion Gap 18 meq/L (5-15); Aspartate Aminotransferase 17 U/L (15-37); Blood Urea Nitrogen 63 mg/dL (7-18); Calcium 8.8 mg/dL (8.5-10.1); Carbon Dioxide 27.3 meq/L (21.0-32.0); Chloride 96 meq/L (98-107); Creatine Kinase 197 U/L (39-308); Glomerular Filtration Rate 11 mL/min (>89); Glucose,Random 183 mg/dL (74-106); Potassium 4.2 meq/L (3.5-5.1); Sodium 141 meq/L (136-145); Total Protein 7.3 g/dL (6.4-8.2); Troponin I 0.08 ng/mL (0.02-0.05); Vancomycin,Random 6.4 Comment
[2018-06-13 11:36] LABS: Creatine Kinase MB 1.8 ng/mL (0.5-3.6)
[2018-06-13] MEDS: Propofol 1000 mg/100 ml Inj 1,000 MG/100 ML BOTTLE IV.CONT PRN ×2 (11:45→21:22)
--- NOTE | 2018-06-13 12:01 | P.PNCC ---
Subjective Subjective Remarks/Hospital Course: 06/10: 63-year-old male with a history of hypertension, renal failure, dialysis dependent, presents as a stroke alert. Patient was last seen normal at 1500 p.m. which was within the 3 hour limit. Patient apparently was seen normal and then found in a room at the [facility] with left-sided weakness and a right- sided gaze. The patient initially did not want to go the hospital and was encouraged by the EMS staff to come. He denies any pain. He understands that he is having a stroke. He was unable to move his left upper extremity or left lower extremity. The TPA was administered in the emergency department. CTA of the head and neck shows the intracerebral vasculature is normal in caliber without evidence of aneurysm or abnormal truncation. The patient has been admitted to ICU stroke TPa protocol. 06/11: Resting in bed. Having episodes of nausea. Continues to have left-sided hemiplegia. 06/12: Patient developed worsening respiratory distress with dropping O2 sats requiring supplemental O2 however his O2 sats dropped to the mid 80s and he appeared to be significantly short of breath. He was also having encephalopathy with fluctuating mental status and significant nausea. Head CT done earlier revealed slight hemorrhagic conversion in the area of his infarct. Dr. Do asked that I see the patient as reconsult. decision was made to intubate and I proceeded with endotracheal intubation and patient was placed on mechanical ventilation. Postprocedure chest x-ray showed ET tube in appropriate position and pulmonary edema pattern. Immediately following intubation patient was dialyzed with removal of around 3.5 L of fluid. 06/13: Remains sedated, orally intubated on mechanical ventilation. Objective Vital Signs / I&O: Vital Signs 06/12/18 12:00 06/12/18 12:30 06/12/18 14:00 Temperature 97.5 F L Pulse Rate 74 70 Respiratory Rate 40 H 16 Blood Pressure 225/118 H Pulse Oximetry 80 L 100 06/12/18 16:00 06/12/18 16:35 06/12/18 18:00 Temperature 98.1 F Pulse Rate 76 81 Respiratory Rate 27 H 24 Blood Pressure 118/57 L Pulse Oximetry 100 100 06/12/18 19:31 06/12/18 20:00 06/12/18 22:00 Temperature 100.3 F H Pulse Rate 76 71 Respiratory Rate 18 Blood Pressure 115/56 L Pulse Oximetry 100 100 06/12/18 23:22 06/13/18 00:00 06/13/18 02:00 Temperature 98.5 F Pulse Rate 70 70 Respiratory Rate 24 16 Blood Pressure 122/56 L Pulse Oximetry 100 99 06/13/18 04:00 06/13/18 04:01 06/13/18 06:00 Temperature 98.6 F Pulse Rate 63 60 Respiratory Rate 16 16 Blood Pressure 132/63 Pulse Oximetry 100 100 06/13/18 08:00 06/13/18 09:01 06/13/18 10:00 Temperature 99.8 F H Pulse Rate 62 60 Respiratory Rate 18 16 Blood Pressure 179/72 H Pulse Oximetry 100 100 Intake & Output 06/12/18 06/13/18 06/13/18 18:59 06:59 18:59 Intake Total 300 / 300 150 / 150 150 / 150 Output Total 250 / 250 415 / 415 Balance 50 / 50 -265 / -265 150 / 150 Weight 65.9 kg Intake: IV 300 / 300 150 / 150 150 / 150 Diprivan 1000 mg/100 ml Inj 1, 100 / 100 100 / 100 000 mg In 100 ml @ 5 MCG/KG/MIN 2.151 mls/hr IV.CONT TITRATE PRN Rx#:[id number] Zosyn 2.25 GM Premix 50 ML @ 50 / 50 50 / 50 50 / 50 100 mls/hr IV.SIG Q8H HELLEN Rx#: [id number] Vancomycin Inj 1,000 MG In NS 250 / 250 Inj 250 ML @ 250 mls/hr IV.SIG ONCE ONE Rx#:[id number] Output: Urine Amount (Catheter) 50 / 50 15 / 15 Indwelling Urethral Catheter 50 / 50 15 / 15 Gastric Drainage 200 / 200 400 / 400 Orogastric Tube 200 / 200 400 / 400 Other: Date of Last Bowel Movement 06/12/18 06/13/18 06/13/18 # Incontinent Bowel Movements 2 1 Result Diagrams: 06/13/18 10:30 06/13/18 10:30 Objective Remarks: HEENT/ Neuro: Sedated, orally intubated, Pallor present, no icterus, tongue/ mucosa moist, left rachael-paresis Neck: No JVD Chest/Pulm: on mech vent, good air entry bilaterally, no wheezing or crackles CVS: S1-S2 regular, no murmur GI/abdomen: soft, nontender, bowel sounds sluggish Extremities: warm bilaterally, no edema Procedures: - Routine HEENT Exam Head: Present: normocephalic, atraumatic Eye: Present: PERRL, normal accommodation - Routine Neck Exam Present: supple, full ROM. Absent: JVD, carotid bruit - Routine Chest/Breast/Axilla Exam Chest wall: Present: pacemaker. Absent: tenderness, mass - Routine Cardiovascular Exam Present: RRR, S1, S2 - Routine Abdominal Exam Present: soft, normoactive bowel sounds. Absent: tenderness, distended - Routine Extremities Exam Absent: cyanosis, clubbing, edema - Routine Skin Exam Present: intact. Absent: cyanosis, erythema - Routine Neurological Exam Present: alert, oriented X3 Right gaze preference, left hemineglect, left hemiplegia on the upper and lower extremities Assessment and Plan - Assessment and Plan Plan: Acute CVA -Status post TPA administration -Neuro checks per unit protocol -Repeat CT head with new areas of hemorrhage in area of right parieto-occipital infarct. Neurology following -PT and OT as tolerated -Further management per neurology -Status post JAVIER Acute respiratory failure on mechanical ventilation Pulmonary edema Possible aspiration -Continue mechanical ventilation, vent bundle, bronchodilators as needed. -Sputum Gram stain and cultures sent. Blood cultures pending -Empiric antibiotic coverage with IV Zosyn started 06/12 ESRD -Continue hemodialysis per renal Hypertension -Cardene drip to keep SBP less than 180 -Labetalol and enalapril IV as needed -Started amlodipine 5 mg daily on 06/13 Nausea/vomiting -Zofran and Phenergan as needed Dyslipidemia -Pravastatin DVT GI prophylaxis -Teds SCDs -No pharmacological DVT prophylaxis 24 hours post TPA -Pepcid Discussed with patient's regarding current clinical status and plan of care and she voiced understanding. Condition critical Time spent on critical care excluding procedures 45 minutes
[2018-06-13] MEDS ORDERED: Vancomycin Inj 1,000 MG in Sodium Chlor 0.9% Inj 250 ML IV.SIG ONE (15:00)
--- NOTE | 2018-06-13 15:46 | P.PNNP ---
Subjective Interval history: Patient is on ventilator Physical Exam Vital signs: Vital Signs 06/12/18 16:00 06/12/18 16:35 06/12/18 18:00 Temperature 98.1 F Pulse Rate 76 81 Respiratory Rate 27 H 24 Blood Pressure 118/57 L Pulse Oximetry 100 100 06/12/18 19:31 06/12/18 20:00 06/12/18 22:00 Temperature 100.3 F H Pulse Rate 76 71 Respiratory Rate 18 Blood Pressure 115/56 L Pulse Oximetry 100 100 06/12/18 23:22 06/13/18 00:00 06/13/18 02:00 Temperature 98.5 F Pulse Rate 70 70 Respiratory Rate 24 16 Blood Pressure 122/56 L Pulse Oximetry 100 99 06/13/18 04:00 06/13/18 04:01 06/13/18 06:00 Temperature 98.6 F Pulse Rate 63 60 Respiratory Rate 16 16 Blood Pressure 132/63 Pulse Oximetry 100 100 06/13/18 08:00 06/13/18 09:01 06/13/18 10:00 Temperature 99.8 F H Pulse Rate 62 60 Respiratory Rate 18 16 Blood Pressure 179/72 H Pulse Oximetry 100 100 06/13/18 12:00 06/13/18 12:39 Temperature 100 F H Pulse Rate 62 Respiratory Rate 16 16 Blood Pressure 133/62 Pulse Oximetry 100 100 Intake & Output 06/12/18 06/13/18 06/13/18 18:59 06:59 18:59 Intake Total 300 / 300 150 / 150 150 / 150 Output Total 250 / 250 415 / 415 Balance 50 / 50 -265 / -265 150 / 150 Weight 65.9 kg Intake: IV 300 / 300 150 / 150 150 / 150 Diprivan 1000 mg/100 ml Inj 1, 100 / 100 100 / 100 000 mg In 100 ml @ 5 MCG/KG/MIN 2.151 mls/hr IV.CONT TITRATE PRN Rx#:[id number] Zosyn 2.25 GM Premix 50 ML @ 50 / 50 50 / 50 50 / 50 100 mls/hr IV.SIG Q8H HELLEN Rx#: [id number] Vancomycin Inj 1,000 MG In NS 250 / 250 Inj 250 ML @ 250 mls/hr IV.SIG ONCE ONE Rx#:[id number] Output: Urine Amount (Catheter) 50 / 50 15 / 15 Indwelling Urethral Catheter 50 / 50 15 / 15 Gastric Drainage 200 / 200 400 / 400 Orogastric Tube 200 / 200 400 / 400 Other: Date of Last Bowel Movement 06/12/18 06/13/18 06/13/18 # Incontinent Bowel Movements 2 1 - Constitutional no acute distress - Routine Neck Exam Present: supple - Routine Respiratory Exam Present: patient mechanically ventilated, CTA bilaterally - Routine Cardiovascular Exam Present: RRR - Routine Abdominal Exam Present: soft, normoactive bowel sounds - Routine Extremities Exam Present: edema - Urinary Catheter Management Indwelling Urethral Catheter Cath placed during this visit: yes Reason for continuing: Hourly intake/output Insertion date: 06/10/18 Insertion time: 16:40 Assessment and Plan - Assessment (1) Renal failure, chronic Code(s): N18.9 - Chronic kidney disease, unspecified Status: Acute Qualifiers: Chronic kidney disease stage: stage 5 Qualified Code(s): N18.5 - Chronic kidney disease, stage 5 Plan: We will continue dialysis MWF. Avoid Gadolinium. Monitor fluid and electrolytes. Obtain labs in AM. Pending swallow eval, high protein diet should be offered. May need IVF if not able to swallow. Protect access arm from IV and BP measurements. Patient had dialysis yesterday 3.5 L off (2) Acute right MCA stroke Code(s): I63.511 - Cerebral infarction due to unspecified occlusion or stenosis of right middle cerebral artery Status: Acute Plan: Management per neurology. tPA administered, no improvement. (3) Hypertension Code(s): I10 - Essential (primary) hypertension Status: Acute Qualifiers: Hypertension type: essential hypertension Qualified Code(s): I10 - Essential (primary) hypertension Plan: Continue medications as ordered.
[2018-06-14] MEDS: Piperacil/Tazo 2.25 GM Premix 50 ML IV.SIG SCH ×3 (00:48→16:37)
[2018-06-14] MEDS: Chlorhexidine Gluconate 2% 1 Pack (2 Cloths) TOPICAL SCH (05:15)
[2018-06-14 05:36] LABS: Baso # (Auto) 0.1 th/mm3 (0.0-0.2); Baso % (Auto) 0.8 % (0.0-2.0); Eos % (Auto) 0.4 % (0.0-4.0); Hematocrit 37.1 % (39.0-51.0); Hemoglobin 12.6 gm/dL (13.0-17.0); Lymph # (Auto) 1.4 th/mm3 (1.0-4.8); Lymph % (Auto) 12.9 % (9.0-44.0); Mean Corpuscular HGB Conc 33.9 % (32.0-36.0); Mean Corpuscular Hemoglobin 31.6 pg (27.0-34.0); Mean Corpuscular Volume 93.3 fL (80.0-100.0); Mean Platelet Volume 8.7 fL (7.0-11.0); Mono # (Auto) 0.9 th/mm3 (0.0-0.9); Mono % (Auto) 8.2 % (0.0-8.0); Neut # (Auto) 8.7 th/mm3 (1.8-7.7); Neut % (Auto) 77.7 % (16.0-70.0); Platelet Count 144 th/mm3 (150-450); Red Blood Count 3.98 mil/mm3 (4.50-5.90); Red Cell Distribution Width 13.7 % (11.6-17.2); White Blood Count 11.2 th/mm3 (4.0-11.0)
[2018-06-14 06:04] LABS: Alanine Aminotransferase 27 U/L (12-78); Albumin 2.7 g/dL (3.4-5.0); Alkaline Phosphatase 83 U/L (45-117); Anion Gap 18 meq/L (5-15); Aspartate Aminotransferase 35 U/L (15-37); Blood Urea Nitrogen 86 mg/dL (7-18); Calcium 8.7 mg/dL (8.5-10.1); Carbon Dioxide 26.9 meq/L (21.0-32.0); Chloride 94 meq/L (98-107); Glomerular Filtration Rate 8 mL/min (>89); Glucose,Random 164 mg/dL (74-106); Potassium 4.3 meq/L (3.5-5.1); Sodium 139 meq/L (136-145); Total Protein 7.2 g/dL (6.4-8.2); Vancomycin,Random 23.6 Comment
[2018-06-14] MEDS: Propofol 1000 mg/100 ml Inj 1,000 MG/100 ML BOTTLE IV.CONT PRN (06:50)
[2018-06-14] MEDS: amLODIPine 5 MG Tablet NG/OG SCH (09:04)
[2018-06-14] MEDS: Insulin NovoLOG Aspart Correctional Sugar Inj SQ SCH ×4 (09:05→21:33)
--- NOTE | 2018-06-14 10:00 | P.DIET ---
Nutritional Evaluation Screening comments: NPO ALERT X 3 DAYS, CONSULT DIETITIAN NEEDED.
--- NOTE | 2018-06-14 10:31 | P.PNCC ---
Subjective Subjective Remarks/Hospital Course: 06/10: 63-year-old male with a history of hypertension, renal failure, dialysis dependent, presents as a stroke alert. Patient was last seen normal at 1500 p.m. which was within the 3 hour limit. Patient apparently was seen normal and then found in a room at the [facility] with left-sided weakness and a right- sided gaze. The patient initially did not want to go the hospital and was encouraged by the EMS staff to come. He denies any pain. He understands that he is having a stroke. He was unable to move his left upper extremity or left lower extremity. The TPA was administered in the emergency department. CTA of the head and neck shows the intracerebral vasculature is normal in caliber without evidence of aneurysm or abnormal truncation. The patient has been admitted to ICU stroke TPa protocol. 06/11: Resting in bed. Having episodes of nausea. Continues to have left-sided hemiplegia. 06/12: Patient developed worsening respiratory distress with dropping O2 sats requiring supplemental O2 however his O2 sats dropped to the mid 80s and he appeared to be significantly short of breath. He was also having encephalopathy with fluctuating mental status and significant nausea. Head CT done earlier revealed slight hemorrhagic conversion in the area of his infarct. Dr. Do asked that I see the patient as reconsult. decision was made to intubate and I proceeded with endotracheal intubation and patient was placed on mechanical ventilation. Postprocedure chest x-ray showed ET tube in appropriate position and pulmonary edema pattern. Immediately following intubation patient was dialyzed with removal of around 3.5 L of fluid. 06/13: Remains sedated, orally intubated on mechanical ventilation. 06/14: Sedated, arousable, orally intubated on mechanical ventilation. Left- sided weakness persists. Following commands unenlightening sedation. Head CT done yesterday showed new areas of hemorrhage in area of ischemic infarct. Objective Vital Signs / I&O: Vital Signs 06/13/18 12:00 06/13/18 12:39 06/13/18 14:00 Temperature 100 F H Pulse Rate 62 60 Respiratory Rate 16 16 Blood Pressure 133/62 Pulse Oximetry 100 100 06/13/18 16:00 06/13/18 18:00 06/13/18 20:00 Temperature 99.6 F 99.5 F Pulse Rate 58 L 60 60 Respiratory Rate 16 16 Blood Pressure 129/59 L 104/51 L Pulse Oximetry 100 100 06/13/18 20:09 06/13/18 22:00 06/14/18 00:00 Temperature 99.4 F Pulse Rate 60 60 Respiratory Rate 16 16 Blood Pressure 122/55 L Pulse Oximetry 100 100 06/14/18 00:01 06/14/18 02:00 06/14/18 03:11 Temperature Pulse Rate 60 Respiratory Rate 16 16 Blood Pressure Pulse Oximetry 100 100 06/14/18 04:00 06/14/18 06:00 06/14/18 08:00 Temperature 99.5 F 99 F Pulse Rate 60 60 59 L Respiratory Rate 16 16 Blood Pressure 98/49 L 112/50 L Pulse Oximetry 100 100 06/14/18 08:10 Temperature Pulse Rate Respiratory Rate 16 Blood Pressure Pulse Oximetry 100 Intake & Output 06/13/18 06/14/18 06/14/18 18:59 06:59 18:59 Intake Total 450 / 450 250 / 250 Output Total 450 / 450 300 / 300 Balance 0 / 0 -50 / -50 Weight 65.9 kg Intake: IV 450 / 450 250 / 250 Diprivan 1000 mg/100 ml Inj 1, 100 / 100 200 / 200 000 mg In 100 ml @ 5 MCG/KG/MIN 2.151 mls/hr IV.CONT TITRATE PRN Rx#:[id number] Zosyn 2.25 GM Premix 50 ML @ 100 / 100 50 / 50 100 mls/hr IV.SIG Q8H HELLEN Rx#: [id number] Vancomycin Inj 1,000 MG In NS 250 / 250 Inj 250 ML @ 250 mls/hr IV.SIG ONCE ONE Rx#:[id number] Output: Urine Amount (Catheter) 50 / 50 50 / 50 Indwelling Urethral Catheter 50 / 50 50 / 50 Gastric Drainage 400 / 400 250 / 250 Orogastric Tube 400 / 400 250 / 250 Other: Date of Last Bowel Movement 06/13/18 06/14/18 06/14/18 # Incontinent Bowel Movements 0 1 Result Diagrams: 06/14/18 04:13 06/14/18 04:13 Imaging: Chest X-Ray 06/10/18 16:08 CONCLUSION: Bilateral perihilar airspace opacities which may reflect a diffuse infectious process versus edema from congestive heart failure. Left-sided pleural effusion , small. Head CT 06/10/18 16:08 CONCLUSION: 1. No acute findings. Report was called by [Dr. Wilhelm to Dr. Shin at 4:20 PM on June 10, 2018. ] Head CTA 06/10/18 16:08 CONCLUSION: 1. Atherosclerosis identified within the region of the carotid bulb without significant luminal narrowing. The intracerebral vasculature is otherwise normal in caliber without evidence of aneurysm or abnormal truncation. Neck CTA 06/10/18 16:08 CONCLUSION: 1. No evidence for hemodynamically significant stenosis. Head CT 06/11/18 16:30 CONCLUSION: 1. Large wedge-shaped area of progressive decreased attenuation involving the white matter and boothe matter of the right parietal lobe and occipital lobe consistent with evolving infarct. There is mild mass effect upon the adjacent right ventricle without significant narrowing of the ventricle and no evidence of midline shift or transtentorial herniation. 2. No evidence of hemorrhagic transformation. . Head CT 06/12/18 06:00 CONCLUSION: Stable size to the right parietal-occipital infarction. Solitary small hyperdensity along the superior margin probably represents a small hemorrhage. No evidence of mass effect or midline shift. Chest X-Ray 06/12/18 12:44 CONCLUSION: Cardiomegaly and findings of congestive heart failure. This is new when compared with the prior exam. Head CT 06/13/18 00:00 CONCLUSION: 1. Evolving right temporoparietal infarction with new areas of hemorrhage along the medial and posterior superior margins. . Chest X-Ray 06/13/18 05:00 CONCLUSION: Persistent left lower lung consolidation and pleural effusion. Objective Remarks: HEENT/ Neuro: Sedated, arousable, orally intubated, Pallor present, no icterus, tongue/ mucosa moist, left rachael-paresis Neck: No JVD Chest/Pulm: on mech vent, good air entry bilaterally, no wheezing or crackles CVS: S1-S2 regular, no murmur GI/abdomen: soft, nontender, bowel sounds sluggish Extremities: warm bilaterally, no edema Procedures: - Assessment and Plan - Assessment and Plan Plan: Acute CVA -Status post TPA administration -Neuro checks per unit protocol -Repeat CT head 06/13 with new areas of hemorrhage in area of right parieto- occipital infarct. Neurology following. Neurosurgery consulted. -PT and OT as tolerated -Further management per neurology -Status post JAVIER Acute respiratory failure on mechanical ventilation Pulmonary edema Possible aspiration -Continue mechanical ventilation, vent bundle, bronchodilators as needed. -Sputum Gram stain and cultures sent. Blood cultures pending -Empiric antibiotic coverage with IV Zosyn started 06/12 Daily CPAP trials. ESRD -Continue hemodialysis per renal Hypertension -Cardene drip to keep SBP less than 180 -Labetalol and enalapril IV as needed -Started amlodipine 5 mg daily on 06/13 Nausea/vomiting -Zofran and Phenergan as needed Dyslipidemia -Pravastatin DVT GI prophylaxis -Teds SCDs -No pharmacological DVT prophylaxis 24 hours post TPA -Pepcid Discussed with patient's following intubation regarding current clinical status and plan of care and she voiced understanding. Condition critical Time spent on critical care excluding procedures 35 minutes
--- NOTE | 2018-06-14 11:57 | P.PN ---
Subjective Interval history: follows commands with right side Physical Exam Vital signs: Vital Signs 06/13/18 12:00 06/13/18 12:39 06/13/18 14:00 Temperature 100 F H Pulse Rate 62 60 Respiratory Rate 16 16 Blood Pressure 133/62 Pulse Oximetry 100 100 06/13/18 16:00 06/13/18 18:00 06/13/18 20:00 Temperature 99.6 F 99.5 F Pulse Rate 58 L 60 60 Respiratory Rate 16 16 Blood Pressure 129/59 L 104/51 L Pulse Oximetry 100 100 06/13/18 20:09 06/13/18 22:00 06/14/18 00:00 Temperature 99.4 F Pulse Rate 60 60 Respiratory Rate 16 16 Blood Pressure 122/55 L Pulse Oximetry 100 100 06/14/18 00:01 06/14/18 02:00 06/14/18 03:11 Temperature Pulse Rate 60 Respiratory Rate 16 16 Blood Pressure Pulse Oximetry 100 100 06/14/18 04:00 06/14/18 06:00 06/14/18 08:00 Temperature 99.5 F 99 F Pulse Rate 60 60 59 L Respiratory Rate 16 16 Blood Pressure 98/49 L 112/50 L Pulse Oximetry 100 100 06/14/18 08:10 Temperature Pulse Rate Respiratory Rate 16 Blood Pressure Pulse Oximetry 100 Intake & Output 06/13/18 06/14/18 06/14/18 18:59 06:59 18:59 Intake Total 450 / 450 250 / 250 50 / 50 Output Total 450 / 450 300 / 300 Balance 0 / 0 -50 / -50 50 / 50 Weight 65.9 kg Intake: IV 450 / 450 250 / 250 50 / 50 Diprivan 1000 mg/100 ml Inj 1, 100 / 100 200 / 200 000 mg In 100 ml @ 5 MCG/KG/MIN 2.151 mls/hr IV.CONT TITRATE PRN Rx#:[id number] Zosyn 2.25 GM Premix 50 ML @ 100 / 100 50 / 50 50 / 50 100 mls/hr IV.SIG Q8H HELLEN Rx#: [id number] Vancomycin Inj 1,000 MG In NS 250 / 250 Inj 250 ML @ 250 mls/hr IV.SIG ONCE ONE Rx#:[id number] Output: Urine Amount (Catheter) 50 / 50 50 / 50 Indwelling Urethral Catheter 50 / 50 50 / 50 Gastric Drainage 400 / 400 250 / 250 Orogastric Tube 400 / 400 250 / 250 Other: Date of Last Bowel Movement 06/13/18 06/14/18 06/14/18 # Incontinent Bowel Movements 0 1 Narrative: sedated follows commands with right ue/le dtrs brisk no w/d left side. - Urinary Catheter Management Indwelling Urethral Catheter Cath placed during this visit: yes Reason for continuing: Hourly intake/output Insertion date: 06/10/18 Insertion time: 16:40 Results - Labs CBC & Chem 7: 06/14/18 04:13 06/14/18 04:13 Laboratory Results - last 24 hr 06/13/18 06/13/18 06/14/18 17:48 20:37 04:13 WBC RBC Hgb Hct MCV MCH MCHC RDW Plt Count MPV Neut % (Auto) Lymph % (Auto) Cherry % (Auto) Eos % (Auto) Baso % (Auto) Neut # (Auto) Lymph # (Auto) Cherry # (Auto) Eos # (Auto) Baso # (Auto) WBC Differential Differential Comment Sodium 139 Potassium 4.3 Chloride 94 L Carbon Dioxide 26.9 Anion Gap 18 H BUN 86 H Creatinine 6.65 H Estimated GFR 8 L POC Glucose 172 H 170 H Random Glucose 164 H Calcium 8.7 Total Bilirubin 1.3 H AST 35 ALT 27 Alkaline Phosphatase 83 Total Protein 7.2 Albumin 2.7 L Random Vancomycin 23.6 06/14/18 06/14/18 04:13 07:34 WBC 11.2 H RBC 3.98 L Hgb 12.6 L Hct 37.1 L MCV 93.3 MCH 31.6 MCHC 33.9 RDW 13.7 Plt Count 144 L MPV 8.7 Neut % (Auto) 77.7 H Lymph % (Auto) 12.9 Cherry % (Auto) 8.2 H Eos % (Auto) 0.4 Baso % (Auto) 0.8 Neut # (Auto) 8.7 H Lymph # (Auto) 1.4 Cherry # (Auto) 0.9 Eos # (Auto) 0.0 Baso # (Auto) 0.1 WBC Differential . Differential Comment Auto diff final Sodium Potassium Chloride Carbon Dioxide Anion Gap BUN Creatinine Estimated GFR POC Glucose 182 H Random Glucose Calcium Total Bilirubin AST ALT Alkaline Phosphatase Total Protein Albumin Random Vancomycin Microbiology 06/12/18 19:40 Blood - Peripheral Aerobic Blood Culture - Preliminary No growth in 2 days 06/12/18 19:40 Blood - Peripheral Anaerobic Blood Culture - Preliminary No growth in 2 days 06/12/18 19:30 Blood - Peripheral Aerobic Blood Culture - Preliminary No growth in 2 days 06/12/18 19:30 Blood - Peripheral Anaerobic Blood Culture - Preliminary No growth in 2 days 06/12/18 12:45 Sputum - Endotracheal Gram Stain - Final 06/12/18 12:45 Sputum - Endotracheal Sputum Culture - Preliminary Assessment and Plan - Assessment (1) Acute right MCA stroke Code(s): I63.511 - Cerebral infarction due to unspecified occlusion or stenosis of right middle cerebral artery Status: Acute (2) Hypertension Code(s): I10 - Essential (primary) hypertension Status: Acute (3) Chronic kidney disease Code(s): N18.9 - Chronic kidney disease, unspecified Status: Acute (4) Renal failure, chronic Code(s): N18.9 - Chronic kidney disease, unspecified Status: Acute - Plan cva right hemispheric s/p tpa increased hemorrhagic conversion on 2nd CT yesterday. seems to be doing better Dr Hardwick in am. (2) Hypertension Qualifiers: Hypertension type: essential hypertension Qualified Code(s): I10 - Essential (primary) hypertension (3) Chronic kidney disease Qualifiers: Chronic kidney disease stage: unspecified stage Qualified Code(s): N18.9 - Chronic kidney disease, unspecified (4) Renal failure, chronic Qualifiers: Chronic kidney disease stage: stage 5 Qualified Code(s): N18.5 - Chronic kidney disease, stage 5
--- NOTE | 2018-06-14 12:16 | P.CONNS ---
History of Present Illness Service: Neurosurgery Reason for Consult: Hemorrhagic conversion of CVA Primary Care Provider: Thomas Escobedo Chief Complaint: Stroke alert History of Present Illness: 63 yo M with PMH of HTN, ESRD on dialysis admitted on 06/10 for right temporal parietal CVA. Given tPA on admission and subsequently intubated. Per notes and nursing discussion, patient with stable neurological exam for the past few days. Daily head CTs obtained for interval evaluation demonstrated small area of hemorrhagic reperfusion injury prompting neurosurgery consult. [facility] - History History Provided By: Patient, Family Member - Medical History Medical History: Medical History (Last Reviewed 06/12/18 @ 09:05 by Johanny Rosales, FACILITIES DIRECTOR) AV fistula Pacemaker Renal failure - Tobacco History Smoking Status: Never smoker - Alcohol History How Often Do You Have a Drink Containing Alcohol: Never - Substance Use History Substance History: No History of Abuse - Travel History Recent Travel in the [place] Within the Last 8 Weeks: No Recent Travel Out of the Country Within the Last 8 Weeks: No - Immunization History Tetanus Immunization: Unsure Hx Influenza Vaccine This Season: Yes Medications and Allergies Active Medications: Active Medications Acetaminophen (Tylenol) 650 mg PO UNSCH PRN PRN Reason: SEE LABEL COMMENTS Amlodipine Besylate (Norvasc) 5 mg NG/OG DAILY [facility] Last Admin: 06/14/18 09:04 Dose: 5 mg Chlorhexidine Gluconate (Chlorhexidine 2% Cloth) 3 pack TOPICAL DAILY@0400 PRN PRN Reason: Extra cloth needed Stop: 06/16/18 03:59 Chlorhexidine Gluconate (Chlorhexidine 2% Cloth) 3 pack TOPICAL DAILY@0400 [facility] Stop: 06/16/18 03:59 Last Admin: 06/14/18 05:15 Dose: 3 pack Clonidine HCl (Catapres) 0.1 mg PO UNSCH PRN PRN Reason: SEE LABEL COMMENTS Dextrose (D50w Vial) 50 ml IV.PUSH UNSCH PRN PRN Reason: PER HYPOGLYCEMIA PROTOCOL Diphenhydramine HCl (Benadryl) 25 mg PO UNSCH PRN PRN Reason: SEE LABEL COMMENTS Enalaprilat (Vasotec Inj) 1.25 mg IV.PUSH Q4H PRN PRN Reason: For SBP > 220 or DBP > 120 Last Admin: 06/12/18 11:41 Dose: 1.25 mg Gelatin (Gelfoam 12 Mm/7 Mm Topical) 1 foam TOPICAL PRN PRN PRN Reason: help stop bleeding from site Gentamicin Sulfate (Gentamicin Inj) 20 mg OTHER WITH DIALYSIS PRN PRN Reason: Dwell Gentamycin Lock Glucagon (Glucagon Inj) 1 mg OTHER UNSCH PRN PRN Reason: for Hypoglycemia Protocol Heparin Sodium (Porcine) (Heparin Inj) 8,000 units OTHER WITH DIALYSIS PRN PRN Reason: for machine prime Heparin Sodium (Porcine) (Heparin Inj) 1,000 units OTHER WITH DIALYSIS PRN PRN Reason: Dwell Heparin to Fill Catheter Nicardipine HCl 25 mg/ Sodium (Chloride) 250 mls @ 50 mls/hr IV.CONT TITRATE PRN; Protocol PRN Reason: Per Protocol Last Titration: 06/12/18 00:12 Dose: Infused Albumin Human (Flexbumin 25% Inj) 100 mls @ 60 mls/hr IV.SIG WITH DIALYSIS PRN PRN Reason: hypotension / volume replace Sodium Chloride (Ns Inj) 1,000 mls @ 0 mls/hr OTHER .Q0M PRN PRN Reason: for prime and rinse back Sodium Chloride (Ns Inj) 1,000 mls @ 200 mls/hr OTHER .Q5H PRN PRN Reason: for dialyzer flush PRN Sodium Chloride (Ns Inj) 1,000 mls @ 0 mls/hr IV.CONT .Q0M PRN PRN Reason: hypotension / volume replace Acetaminophen (Ofirmev Inj) 1,000 mg in 100 mls @ 400 mls/hr IV.SIG Q6H PRN PRN Reason: TEMP > 101 Last Infusion: 06/12/18 00:32 Dose: Infused Propofol (Diprivan 1000 Mg/100 Ml Inj) 1,000 mg in 100 mls @ 2.151 mls/hr IV.CONT TITRATE PRN; Protocol PRN Reason: Per Protocol Last Admin: 06/14/18 06:50 Dose: 20 mcg/kg/min, 8.6 mls/hr Piperacillin/Tazobactam/Dextrose (Zosyn 2.25 Gm Premix) 50 mls @ 100 mls/hr IV.SIG Q8H [facility] Last Infusion: 06/14/18 09:34 Dose: Infused Vancomycin HCl 1,000 mg/ (Sodium Chloride) 250 mls @ 250 mls/hr IV.SIG WITH DIALYSIS [facility] Insulin Aspart (Novolog Insulin Correctional Sugar Inj) 0 unit SQ ACHS [facility]; Protocol Last Admin: 06/14/18 09:05 Dose: Not Given Labetalol HCl (Trandate Inj) 10 mg IV.PUSH Q2H PRN PRN Reason: For SBP > 220 or DBP > 120 Last Admin: 06/12/18 15:59 Dose: 10 mg Mannitol (Mannitol Inj) 12.5 gm IV.PUSH UNSCH PRN PRN Reason: hypotension / volume replace Nitroglycerin (Nitrostat Sl) 0.4 mg SL Q5M PRN PRN Reason: CHEST PAIN Ondansetron HCl (Zofran Inj) 4 mg IV.PUSH UNSCH PRN PRN Reason: NAUSEA OR VOMITING Ondansetron HCl (Zofran Inj) 4 mg IV.PUSH Q6H PRN PRN Reason: NAUSEA Last Admin: 06/12/18 11:42 Dose: 4 mg Pharmacy Profile Note (Vancomycin Consult Pharmacy) 1 each OTHER UNSCH PRN PRN Reason: Pharmacy to dose Pravastatin Sodium (Pravachol) 40 mg PO HS [facility] Last Admin: 06/13/18 21:21 Dose: 40 mg Promethazine HCl (Phenergan Inj) 12.5 mg IM Q6H PRN PRN Reason: VOMITING Sodium Chloride (Ns Flush) 2 ml IV.FLUSH BID [facility] Last Admin: 06/14/18 09:05 Dose: 2 ml Sodium Chloride (Ns Flush) 2 ml IV.FLUSH PRN PRN PRN Reason: FLUSH AFTER USING IV ACCESS Sodium Chloride (Ns Flush) 5 ml IV.FLUSH PRN PRN PRN Reason: flush each lumen during HD Allergies Allergy/AdvReac Type Severity Reaction Status Date / Time No Known Allergies Allergy Verified 06/10/18 16:53 Exam Vital signs: Vital Signs 06/13/18 12:39 06/13/18 14:00 06/13/18 16:00 Temperature 99.6 F Pulse Rate 60 58 L Respiratory Rate 16 16 Blood Pressure 129/59 L Pulse Oximetry 100 100 06/13/18 18:00 06/13/18 20:00 06/13/18 20:09 Temperature 99.5 F Pulse Rate 60 60 Respiratory Rate 16 16 Blood Pressure 104/51 L Pulse Oximetry 100 100 06/13/18 22:00 06/14/18 00:00 06/14/18 00:01 Temperature 99.4 F Pulse Rate 60 60 Respiratory Rate 16 16 Blood Pressure 122/55 L Pulse Oximetry 100 100 06/14/18 02:00 06/14/18 03:11 06/14/18 04:00 Temperature 99.5 F Pulse Rate 60 60 Respiratory Rate 16 16 Blood Pressure 98/49 L Pulse Oximetry 100 100 06/14/18 06:00 06/14/18 08:00 06/14/18 08:10 Temperature 99 F Pulse Rate 60 59 L Respiratory Rate 16 16 Blood Pressure 112/50 L Pulse Oximetry 100 100 Intake & Output 06/13/18 06/14/18 06/14/18 18:59 06:59 18:59 Intake Total 450 / 450 250 / 250 50 / 50 Output Total 450 / 450 300 / 300 Balance 0 / 0 -50 / -50 50 / 50 Weight 65.9 kg Intake: IV 450 / 450 250 / 250 50 / 50 Diprivan 1000 mg/100 ml Inj 1, 100 / 100 200 / 200 000 mg In 100 ml @ 5 MCG/KG/MIN 2.151 mls/hr IV.CONT TITRATE PRN Rx#:[id number] Zosyn 2.25 GM Premix 50 ML @ 100 / 100 50 / 50 50 / 50 100 mls/hr IV.SIG Q8H [facility] Rx#: [id number] Vancomycin Inj 1,000 MG In NS 250 / 250 Inj 250 ML @ 250 mls/hr IV.SIG ONCE ONE Rx#:[id number] Output: Urine Amount (Catheter) 50 / 50 50 / 50 Indwelling Urethral Catheter 50 / 50 50 / 50 Gastric Drainage 400 / 400 250 / 250 Orogastric Tube 400 / 400 250 / 250 Other: Date of Last Bowel Movement 06/13/18 06/14/18 06/14/18 # Incontinent Bowel Movements 0 1 Narrative: E1 PERRL face symmetric intubated Follows simple commands in the right upper and bilateral lowers Able to lift right arm antigravity to command w/ds bilateral lower extremities R>L weak w/d in the left upper Results - Laboratory Findings CBC and BMP: 06/14/18 04:13 06/14/18 04:13 Abnormal lab findings: Abnormal Labs 06/10/18 06/10/18 06/10/18 16:10 16:10 16:10 WBC RBC Hgb POC Hgb (Calc) 11.2 L Hct POC Hct 33.0 L Plt Count Neut % (Auto) [place] % (Auto) Neut # (Auto) ABG pH ABG pCO2 ABG pO2 ABG HCO3 ABG O2 Content ABG Base Excess Chloride Carbon Dioxide Anion Gap POC BUN 50 H BUN Creatinine POC Creatinine 3.6 H Estimated GFR POC Glucose 205 H Random Glucose Hemoglobin A1c 7.0 H Phosphorus Total Bilirubin Troponin I Albumin Cholesterol 100 L HDL Cholesterol 39.3 L Vitamin B12 1032 H Urine Protein U Benzodiazepines Scrn 06/10/18 06/10/18 06/11/18 16:40 16:40 18:07 WBC RBC Hgb POC Hgb (Calc) Hct POC Hct Plt Count Neut % (Auto) [place] % (Auto) Neut # (Auto) ABG pH ABG pCO2 ABG pO2 ABG HCO3 ABG O2 Content ABG Base Excess Chloride Carbon Dioxide Anion Gap POC BUN BUN Creatinine POC Creatinine Estimated GFR POC Glucose Random Glucose Hemoglobin A1c 7.1 H Phosphorus Total Bilirubin Troponin I Albumin Cholesterol HDL Cholesterol Vitamin B12 Urine Protein 100 H U Benzodiazepines Scrn Pos H 06/11/18 06/11/18 06/12/18 18:07 18:07 00:05 WBC 12.7 H RBC 3.83 L Hgb 12.0 L POC Hgb (Calc) Hct 36.3 L POC Hct Plt Count 149 L Neut % (Auto) [place] % (Auto) Neut # (Auto) ABG pH ABG pCO2 ABG pO2 ABG HCO3 ABG O2 Content ABG Base Excess Chloride Carbon Dioxide 20.9 L Anion Gap POC BUN BUN 64 H Creatinine 4.44 H POC Creatinine Estimated GFR 13 L POC Glucose 235 H Random Glucose 209 H Hemoglobin A1c Phosphorus 5.1 H Total Bilirubin Troponin I Albumin Cholesterol 101 L HDL Cholesterol 39.7 L Vitamin B12 Urine Protein U Benzodiazepines Scrn 06/12/18 06/12/18 06/12/18 09:24 11:50 18:01 WBC RBC Hgb POC Hgb (Calc) Hct POC Hct Plt Count Neut % (Auto) [place] % (Auto) Neut # (Auto) ABG pH ABG pCO2 ABG pO2 ABG HCO3 ABG O2 Content ABG Base Excess Chloride Carbon Dioxide Anion Gap POC BUN BUN Creatinine POC Creatinine Estimated GFR POC Glucose 231 H 235 H 130 H Random Glucose Hemoglobin A1c Phosphorus Total Bilirubin Troponin I Albumin Cholesterol HDL Cholesterol Vitamin B12 Urine Protein U Benzodiazepines Scrn 06/12/18 06/12/18 06/12/18 18:12 20:59 21:27 WBC RBC 4.16 L Hgb POC Hgb (Calc) Hct 38.2 L POC Hct Plt Count 120 L Neut % (Auto) 71.6 H [place] % (Auto) 8.5 H Neut # (Auto) ABG pH 7.60 H* ABG pCO2 28 L ABG pO2 283 H ABG HCO3 28 H ABG O2 Content 20.1 H ABG Base Excess 5.5 H Chloride Carbon Dioxide Anion Gap POC BUN BUN Creatinine POC Creatinine Estimated GFR POC Glucose 133 H Random Glucose Hemoglobin A1c Phosphorus Total Bilirubin Troponin I Albumin Cholesterol HDL Cholesterol Vitamin B12 Urine Protein U Benzodiazepines Scrn 06/13/18 06/13/18 06/13/18 08:54 10:30 10:30 WBC RBC 4.18 L Hgb POC Hgb (Calc) Hct POC Hct Plt Count 117 L Neut % (Auto) 78.5 H [place] % (Auto) 8.1 H Neut # (Auto) ABG pH ABG pCO2 ABG pO2 ABG HCO3 ABG O2 Content ABG Base Excess Chloride 96 L D Carbon Dioxide Anion Gap 18 H POC BUN BUN 63 H Creatinine 5.48 H POC Creatinine Estimated GFR 11 L POC Glucose 203 H Random Glucose 183 H Hemoglobin A1c Phosphorus Total Bilirubin 1.2 H Troponin I 0.08 H Albumin 2.9 L D Cholesterol HDL Cholesterol Vitamin B12 Urine Protein U Benzodiazepines Scrn 06/13/18 06/13/18 06/13/18 11:22 17:48 20:37 WBC RBC Hgb POC Hgb (Calc) Hct POC Hct Plt Count Neut % (Auto) [place] % (Auto) Neut # (Auto) ABG pH ABG pCO2 ABG pO2 ABG HCO3 ABG O2 Content ABG Base Excess Chloride Carbon Dioxide Anion Gap POC BUN BUN Creatinine POC Creatinine Estimated GFR POC Glucose 200 H 172 H 170 H Random Glucose Hemoglobin A1c Phosphorus Total Bilirubin Troponin I Albumin Cholesterol HDL Cholesterol Vitamin B12 Urine Protein U Benzodiazepines Scrn 06/14/18 06/14/18 06/14/18 04:13 04:13 07:34 WBC 11.2 H RBC 3.98 L Hgb 12.6 L POC Hgb (Calc) Hct 37.1 L POC Hct Plt Count 144 L Neut % (Auto) 77.7 H [place] % (Auto) 8.2 H Neut # (Auto) 8.7 H ABG pH ABG pCO2 ABG pO2 ABG HCO3 ABG O2 Content ABG Base Excess Chloride 94 L Carbon Dioxide Anion Gap 18 H POC BUN BUN 86 H Creatinine 6.65 H POC Creatinine Estimated GFR 8 L POC Glucose 182 H Random Glucose 164 H Hemoglobin A1c Phosphorus Total Bilirubin 1.3 H Troponin I Albumin 2.7 L Cholesterol HDL Cholesterol Vitamin B12 Urine Protein U Benzodiazepines Scrn Assessment and Plan - Plan 63 yo with PMH of ESRD on dialysis and HTN admitted for CVA. Interval head CT demonstrates small areas of reperfusion hemorrhage but patient clinically stable -no surgical intervention indicated -recommend aggressive SBP control (SBP <140) -please notify neurosurgery of any clinical decline, warranting repeat imaging -consider nephrology consult to discuss dialysis due to uremia induced platelet dysfunction
--- NOTE | 2018-06-14 16:57 | P.PNNP ---
Subjective Interval history: Patient is on ventilator Physical Exam Vital signs: Vital Signs 06/13/18 18:00 06/13/18 20:00 06/13/18 20:09 Temperature 99.5 F Pulse Rate 60 60 Respiratory Rate 16 16 Blood Pressure 104/51 L Pulse Oximetry 100 100 06/13/18 22:00 06/14/18 00:00 06/14/18 00:01 Temperature 99.4 F Pulse Rate 60 60 Respiratory Rate 16 16 Blood Pressure 122/55 L Pulse Oximetry 100 100 06/14/18 02:00 06/14/18 03:11 06/14/18 04:00 Temperature 99.5 F Pulse Rate 60 60 Respiratory Rate 16 16 Blood Pressure 98/49 L Pulse Oximetry 100 100 06/14/18 06:00 06/14/18 08:00 06/14/18 08:10 Temperature 99 F Pulse Rate 60 59 L Respiratory Rate 16 16 Blood Pressure 112/50 L Pulse Oximetry 100 100 06/14/18 10:00 06/14/18 12:00 06/14/18 12:32 Temperature 98.3 F Pulse Rate 58 L 58 L Respiratory Rate 16 16 Blood Pressure 96/44 L Pulse Oximetry 100 100 06/14/18 14:00 06/14/18 16:45 Temperature Pulse Rate 59 L Respiratory Rate 16 Blood Pressure Pulse Oximetry 100 Intake & Output 06/13/18 06/14/18 06/14/18 18:59 06:59 18:59 Intake Total 450 / 450 250 / 250 50 / 50 Output Total 450 / 450 300 / 300 Balance 0 / 0 -50 / -50 50 / 50 Weight 65.9 kg Intake: IV 450 / 450 250 / 250 50 / 50 Diprivan 1000 mg/100 ml Inj 1, 100 / 100 200 / 200 000 mg In 100 ml @ 5 MCG/KG/MIN 2.151 mls/hr IV.CONT TITRATE PRN Rx#:[id number] Zosyn 2.25 GM Premix 50 ML @ 100 / 100 50 / 50 50 / 50 100 mls/hr IV.SIG Q8H [facility] Rx#: [id number] Vancomycin Inj 1,000 MG In NS 250 / 250 Inj 250 ML @ 250 mls/hr IV.SIG ONCE ONE Rx#:[id number] Output: Urine Amount (Catheter) 50 / 50 50 / 50 Indwelling Urethral Catheter 50 / 50 50 / 50 Gastric Drainage 400 / 400 250 / 250 Orogastric Tube 400 / 400 250 / 250 Other: Date of Last Bowel Movement 06/13/18 06/14/18 06/14/18 # Incontinent Bowel Movements 0 1 - Constitutional no acute distress - Routine HEENT Exam Head: Present: normocephalic - Routine Neck Exam Present: supple - Routine Respiratory Exam Present: patient mechanically ventilated, CTA bilaterally - Routine Cardiovascular Exam Present: RRR - Routine Abdominal Exam Present: soft, normoactive bowel sounds - Routine Extremities Exam Present: edema - Urinary Catheter Management Indwelling Urethral Catheter Cath placed during this visit: yes Reason for continuing: Hourly intake/output Insertion date: 06/10/18 Insertion time: 16:40 Assessment and Plan - Assessment (1) Renal failure, chronic Code(s): N18.9 - Chronic kidney disease, unspecified Status: Acute Qualifiers: Chronic kidney disease stage: stage 5 Qualified Code(s): N18.5 - Chronic kidney disease, stage 5 Plan: We will continue dialysis MWF. Avoid Gadolinium. Monitor fluid and electrolytes. Obtain labs in AM. Pending swallow eval, high protein diet should be offered. May need IVF if not able to swallow. Protect access arm from IV and BP measurements. Patient had dialysis Friday 3.[address] Elizondo to follow (2) Acute right MCA stroke Code(s): I63.511 - Cerebral infarction due to unspecified occlusion or stenosis of right middle cerebral artery Status: Acute Plan: Management per neurology. tPA administered, no improvement. (3) Hypertension Code(s): I10 - Essential (primary) hypertension Status: Acute Qualifiers: Hypertension type: essential hypertension Qualified Code(s): I10 - Essential (primary) hypertension Plan: Continue medications as ordered.
[2018-06-14] MEDS ORDERED: Albumin Human 5% Inj 250 ML IV.SIG ONE (19:00)
[2018-06-15] MEDS: Piperacil/Tazo 2.25 GM Premix 50 ML IV.SIG SCH ×4 (00:16→23:24)
[2018-06-15 06:00] LABS: Anion Gap 21 meq/L (5-15); Aspartate Aminotransferase 21 U/L (15-37); Blood Urea Nitrogen 116 mg/dL (7-18); Calcium 9.1 mg/dL (8.5-10.1); Carbon Dioxide 29.1 meq/L (21.0-32.0); Chloride 91 meq/L (98-107); Glomerular Filtration Rate 7 mL/min (>89); Glucose,Random 190 mg/dL (74-106); Potassium 4.3 meq/L (3.5-5.1); Sodium 141 meq/L (136-145)
[2018-06-15 06:01] LABS: Alanine Aminotransferase 44 U/L (12-78); Albumin 3.1 g/dL (3.4-5.0); Alkaline Phosphatase 113 U/L (45-117); Total Protein 7.8 g/dL (6.4-8.2)
[2018-06-15] MEDS: Chlorhexidine Gluconate 2% 1 Pack (2 Cloths) TOPICAL SCH (06:25)
--- NOTE | 2018-06-15 08:09 | P.PNNEU ---
Subjective Subjective Comments: no acute events Active Medications: Active Medications Acetaminophen (Tylenol) 650 mg PO UNSCH PRN PRN Reason: SEE LABEL COMMENTS Amlodipine Besylate (Norvasc) 5 mg NG/OG DAILY [facility] Last Admin: 06/14/18 09:04 Dose: 5 mg Chlorhexidine Gluconate (Chlorhexidine 2% Cloth) 3 pack TOPICAL DAILY@0400 PRN PRN Reason: Extra cloth needed Stop: 06/16/18 03:59 Chlorhexidine Gluconate (Chlorhexidine 2% Cloth) 3 pack TOPICAL DAILY@0400 [facility] Stop: 06/16/18 03:59 Last Admin: 06/15/18 06:25 Dose: 3 pack Clonidine HCl (Catapres) 0.1 mg PO UNSCH PRN PRN Reason: SEE LABEL COMMENTS Dextrose (D50w Vial) 50 ml IV.PUSH UNSCH PRN PRN Reason: PER HYPOGLYCEMIA PROTOCOL Diphenhydramine HCl (Benadryl) 25 mg PO UNSCH PRN PRN Reason: SEE LABEL COMMENTS Enalaprilat (Vasotec Inj) 1.25 mg IV.PUSH Q4H PRN PRN Reason: For SBP > 220 or DBP > 120 Last Admin: 06/12/18 11:41 Dose: 1.25 mg Gelatin (Gelfoam 12 Mm/7 Mm Topical) 1 foam TOPICAL PRN PRN PRN Reason: help stop bleeding from site Gentamicin Sulfate (Gentamicin Inj) 20 mg OTHER WITH DIALYSIS PRN PRN Reason: Dwell Gentamycin Lock Glucagon (Glucagon Inj) 1 mg OTHER UNSCH PRN PRN Reason: for Hypoglycemia Protocol Heparin Sodium (Porcine) (Heparin Inj) 8,000 units OTHER WITH DIALYSIS PRN PRN Reason: for machine prime Heparin Sodium (Porcine) (Heparin Inj) 1,000 units OTHER WITH DIALYSIS PRN PRN Reason: Dwell Heparin to Fill Catheter Nicardipine HCl 25 mg/ Sodium (Chloride) 250 mls @ 50 mls/hr IV.CONT TITRATE PRN; Protocol PRN Reason: Per Protocol Last Titration: 06/12/18 00:12 Dose: Infused Albumin Human (Flexbumin 25% Inj) 100 mls @ 60 mls/hr IV.SIG WITH DIALYSIS PRN PRN Reason: hypotension / volume replace Sodium Chloride (Ns Inj) 1,000 mls @ 0 mls/hr OTHER .Q0M PRN PRN Reason: for prime and rinse back Sodium Chloride (Ns Inj) 1,000 mls @ 200 mls/hr OTHER .Q5H PRN PRN Reason: for dialyzer flush PRN Sodium Chloride (Ns Inj) 1,000 mls @ 0 mls/hr IV.CONT .Q0M PRN PRN Reason: hypotension / volume replace Acetaminophen (Ofirmev Inj) 1,000 mg in 100 mls @ 400 mls/hr IV.SIG Q6H PRN PRN Reason: TEMP > 101 Last Infusion: 06/12/18 00:32 Dose: Infused Propofol (Diprivan 1000 Mg/100 Ml Inj) 1,000 mg in 100 mls @ 2.151 mls/hr IV.CONT TITRATE PRN; Protocol PRN Reason: Per Protocol Last Titration: 06/14/18 13:35 Dose: 0 mcg/kg/min, 0 mls/hr Piperacillin/Tazobactam/Dextrose (Zosyn 2.25 Gm Premix) 50 mls @ 100 mls/hr IV.SIG Q8H [facility] Last Infusion: 06/15/18 00:46 Dose: Infused Vancomycin HCl 1,000 mg/ (Sodium Chloride) 250 mls @ 250 mls/hr IV.SIG WITH DIALYSIS [facility] Insulin Aspart (Novolog Insulin Correctional Sugar Inj) 0 unit SQ ACHS [facility]; Protocol Last Admin: 06/14/18 21:33 Dose: 1 unit Labetalol HCl (Trandate Inj) 10 mg IV.PUSH Q2H PRN PRN Reason: For SBP > 220 or DBP > 120 Last Admin: 06/12/18 15:59 Dose: 10 mg Mannitol (Mannitol Inj) 12.5 gm IV.PUSH UNSCH PRN PRN Reason: hypotension / volume replace Nitroglycerin (Nitrostat Sl) 0.4 mg SL Q5M PRN PRN Reason: CHEST PAIN Ondansetron HCl (Zofran Inj) 4 mg IV.PUSH UNSCH PRN PRN Reason: NAUSEA OR VOMITING Ondansetron HCl (Zofran Inj) 4 mg IV.PUSH Q6H PRN PRN Reason: NAUSEA Last Admin: 06/12/18 11:42 Dose: 4 mg Pharmacy Profile Note (Vancomycin Consult Pharmacy) 1 each OTHER UNSCH PRN PRN Reason: Pharmacy to dose Pravastatin Sodium (Pravachol) 40 mg PO HS [facility] Last Admin: 06/14/18 20:56 Dose: 40 mg Promethazine HCl (Phenergan Inj) 12.5 mg IM Q6H PRN PRN Reason: VOMITING Sodium Chloride (Ns Flush) 2 ml IV.FLUSH BID [facility] Last Admin: 06/14/18 20:56 Dose: Not Given Sodium Chloride (Ns Flush) 2 ml IV.FLUSH PRN PRN PRN Reason: FLUSH AFTER USING IV ACCESS Sodium Chloride (Ns Flush) 5 ml IV.FLUSH PRN PRN PRN Reason: flush each lumen during HD Allergies/Adverse Reactions: Allergies Allergy/AdvReac Type Severity Reaction Status Date / Time No Known Allergies Allergy Verified 06/10/18 16:53 Review of Systems unobtainable due to endotracheal tube Physical Exam Vital signs: Vital Signs 06/14/18 08:10 06/14/18 10:00 06/14/18 12:00 Temperature 98.3 F Pulse Rate 58 L 58 L Respiratory Rate 16 16 Blood Pressure 96/44 L Pulse Oximetry 100 100 06/14/18 12:32 06/14/18 14:00 06/14/18 16:00 Temperature 98.8 F Pulse Rate 59 L 58 L Respiratory Rate 16 12 Blood Pressure 106/45 L Pulse Oximetry 100 100 06/14/18 16:45 06/14/18 18:00 06/14/18 20:00 Temperature 98.9 F Pulse Rate 60 60 Respiratory Rate 16 16 Blood Pressure 146/61 H Pulse Oximetry 100 100 06/14/18 20:48 06/14/18 22:00 06/15/18 00:00 Temperature 98.7 F Pulse Rate 60 59 L Respiratory Rate 17 Blood Pressure Pulse Oximetry 100 06/15/18 00:19 06/15/18 02:00 06/15/18 03:38 Temperature Pulse Rate 59 L Respiratory Rate 16 16 Blood Pressure Pulse Oximetry 100 100 06/15/18 04:00 06/15/18 06:00 Temperature 98.6 F Pulse Rate 60 60 Respiratory Rate 16 Blood Pressure 143/65 H Pulse Oximetry 99 Intake & Output 06/14/18 06/15/18 06/15/18 18:59 06:59 18:59 Intake Total 160 / 160 300 / 300 Output Total 400 / 400 300 / 300 Balance -240 / -240 0 / 0 Weight 73.1 kg Intake: IV 100 / 100 300 / 300 Buminate 5% Inj 250 ML @ As 250 / 250 Directed IV.SIG ONCE ONE Rx#: [id number] Zosyn 2.25 GM Premix 50 ML @ 100 / 100 50 / 50 100 mls/hr IV.SIG Q8H [facility] Rx#: [id number] Tube Irrigant 60 / 60 Output: Urine Amount (Catheter) 100 / 100 300 / 300 Indwelling Urethral Catheter 100 / 100 300 / 300 Gastric Drainage 300 / 300 Orogastric Tube 300 / 300 Other: Date of Last Bowel Movement 06/14/18 06/14/18 # Incontinent Bowel Movements 1 Weight On Admission 65.9 kg Narrative: GENERAL: in NAD, SKIN: Warm and dry. HEAD: Atraumatic. Normocephalic. EYES: Pupils equal and round. No scleral icterus. ENT: No nasal bleeding or discharge. Mucous membranes pink and moist. NECK: Trachea midline. No JVD. CARDIOVASCULAR: Systolic murmur RESPIRATORY: intubated GASTROINTESTINAL: Abdomen soft, non-tender, nondistended. MUSCULOSKELETAL: Extremities without clubbing, cyanosis, or edema. No obvious deformities. NEUROLOGICAL: intubated, mildly somnolent, getting HD, awakens, left facial droop, follows with rt side; left hemiplegia, did withdraw left leg- reflexive vs purposeful PSYCHIATRIC: Calm - Constitutional no acute distress - Routine HEENT Exam Head: Present: normocephalic Eye: Present: EOMI - Urinary Catheter Management Indwelling Urethral Catheter Cath placed during this visit: yes Reason for continuing: Hourly intake/output Insertion date: 06/10/18 Insertion time: 16:40 Objective Laboratory Results - last 24 hr 06/14/18 06/14/18 06/14/18 12:13 17:35 21:26 Sodium Potassium Chloride Carbon Dioxide Anion Gap BUN Creatinine Estimated GFR POC Glucose 198 H 255 H 177 H Random Glucose Calcium Total Bilirubin AST ALT Alkaline Phosphatase Total Protein Albumin 06/15/18 03:55 Sodium 141 Potassium 4.3 Chloride 91 L Carbon Dioxide 29.1 Anion Gap 21 H BUN 116 H Creatinine 7.80 H Estimated GFR 7 L POC Glucose Random Glucose 190 H Calcium 9.1 Total Bilirubin 1.8 H AST 21 ALT 44 Alkaline Phosphatase 113 Total Protein 7.8 D Albumin 3.1 L Microbiology 06/12/18 12:45 Gram Stain - Final Sputum - Endotracheal Sputum Culture - Final 06/12/18 19:40 Aerobic Blood Culture - Preliminary Blood - Peripheral No growth in 2 days Anaerobic Blood Culture - Preliminary No growth in 2 days 06/12/18 19:30 Aerobic Blood Culture - Preliminary Blood - Peripheral No growth in 2 days Anaerobic Blood Culture - Preliminary No growth in 2 days Review/Management - Diagnosis (1) Acute right MCA stroke Code(s): I63.511 - Cerebral infarction due to unspecified occlusion or stenosis of right middle cerebral artery Status: Acute Current Visit: Yes (2) Hypertension Code(s): I10 - Essential (primary) hypertension Status: Acute Current Visit : Yes (3) Chronic kidney disease Code(s): N18.9 - Chronic kidney disease, unspecified Status: Acute Current Visit: Yes (4) Renal failure, chronic Code(s): N18.9 - Chronic kidney disease, unspecified Status: Acute Current Visit: Yes - Review/Management Plan: 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 Cardio embolic etiology is certainly possible Atherosclerotic disease of the carotid bulb but no occlusion seen by cardio. cisco negative. suggest event monitor outpatient. Recommendations 06/12 ct brain- tiny punctate ich. 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
--- NOTE | 2018-06-15 08:38 | XR ---
EXAM DATE: 06/15/2018 8:00 AM EDT AGE/SEX: 63 years / Male INDICATIONS: Shortness of breath. CLINICAL DATA: This is the patient's subsequent encounter. Patient reports that signs and symptoms h ave been present for 1 week and indicates a pain score of Nonresponsive. MEDICAL/SURGICAL HISTORY: Non-responsive. Non-responsive. COMPARISON: C, CHEST 1V SINGLE AP, 06/13/2018. . FINDINGS: Supportive devices are in stable position. Left basilar consolidation with associated small effusion are again noted. Mild central vascular congestion is identified. No significant change is noted CONCLUSION: Persistent left basilar consolidation and small effusion without significant improvement Stable supportive devices. Electronically signed by: Shahzad Salas MD 06/15/2018 8:37 AM EDT
[2018-06-15 09:05] LABS: Baso % (Auto) 0.5 % (0.0-2.0); Eos % (Auto) 0.1 % (0.0-4.0); Hematocrit 37.1 % (39.0-51.0); Hemoglobin 12.6 gm/dL (13.0-17.0); Lymph # (Auto) 1.1 th/mm3 (1.0-4.8); Lymph % (Auto) 10.3 % (9.0-44.0); Mean Corpuscular HGB Conc 33.8 % (32.0-36.0); Mean Corpuscular Hemoglobin 31.9 pg (27.0-34.0); Mean Corpuscular Volume 94.3 fL (80.0-100.0); Mean Platelet Volume 8.8 fL (7.0-11.0); Mono # (Auto) 0.6 th/mm3 (0.0-0.9); Neut # (Auto) 8.9 th/mm3 (1.8-7.7); Neut % (Auto) 83.1 % (16.0-70.0); Platelet Count 171 th/mm3 (150-450); Red Blood Count 3.93 mil/mm3 (4.50-5.90); Red Cell Distribution Width 13.6 % (11.6-17.2); White Blood Count 10.7 th/mm3 (4.0-11.0)
--- NOTE | 2018-06-15 09:27 | P.PNNP ---
Subjective Interval history: patient was seen during dialysis. On 3K, UF 4 liters. BFR 350 ml/min. On the ventilator. He is awake, follows commands. Flaccid paralysis left side. Physical Exam Vital signs: Vital Signs 06/14/18 10:00 06/14/18 12:00 06/14/18 12:32 Temperature 98.3 F Pulse Rate 58 L 58 L Respiratory Rate 16 16 Blood Pressure 96/44 L Pulse Oximetry 100 100 06/14/18 14:00 06/14/18 16:00 06/14/18 16:45 Temperature 98.8 F Pulse Rate 59 L 58 L Respiratory Rate 12 16 Blood Pressure 106/45 L Pulse Oximetry 100 100 06/14/18 18:00 06/14/18 20:00 06/14/18 20:48 Temperature 98.9 F Pulse Rate 60 60 Respiratory Rate 16 17 Blood Pressure 146/61 H Pulse Oximetry 100 100 06/14/18 22:00 06/15/18 00:00 06/15/18 00:19 Temperature 98.7 F Pulse Rate 60 59 L Respiratory Rate 16 Blood Pressure Pulse Oximetry 100 06/15/18 02:00 06/15/18 03:38 06/15/18 04:00 Temperature 98.6 F Pulse Rate 59 L 60 Respiratory Rate 16 16 Blood Pressure 143/65 H Pulse Oximetry 100 99 06/15/18 06:00 06/15/18 08:41 Temperature Pulse Rate 60 Respiratory Rate 19 Blood Pressure Pulse Oximetry 100 Intake & Output 06/14/18 06/15/18 06/15/18 18:59 06:59 18:59 Intake Total 160 / 160 300 / 300 Output Total 400 / 400 300 / 300 Balance -240 / -240 0 / 0 Weight 73.1 kg Intake: IV 100 / 100 300 / 300 Buminate 5% Inj 250 ML @ As 250 / 250 Directed IV.SIG ONCE ONE Rx#: [id number] Zosyn 2.25 GM Premix 50 ML @ 100 / 100 50 / 50 100 mls/hr IV.SIG Q8H HELLEN Rx#: [id number] Tube Irrigant 60 / 60 Output: Urine Amount (Catheter) 100 / 100 300 / 300 Indwelling Urethral Catheter 100 / 100 300 / 300 Gastric Drainage 300 / 300 Orogastric Tube 300 / 300 Other: Date of Last Bowel Movement 06/14/18 06/14/18 # Incontinent Bowel Movements 1 Weight On Admission 65.9 kg - Constitutional no acute distress - Routine HEENT Exam Head: Present: normocephalic Eye: Present: EOMI, PERRL - Routine Respiratory Exam Present: accessory muscle use, CTA bilaterally - Routine Cardiovascular Exam Present: RRR, S1, S2 - Routine Abdominal Exam Present: soft - Routine Skin Exam Present: intact - Routine Neurological Exam left sided weakness. - Urinary Catheter Management Indwelling Urethral Catheter Cath placed during this visit: yes Reason for continuing: Hourly intake/output Insertion date: 06/10/18 Insertion time: 16:40 Assessment and Plan - Assessment (1) Renal failure, chronic Code(s): N18.9 - Chronic kidney disease, unspecified Status: Acute Qualifiers: Chronic kidney disease stage: stage 5 Qualified Code(s): N18.5 - Chronic kidney disease, stage 5 Plan: We will continue dialysis MWF. Avoid Gadolinium. Monitor fluid and electrolytes. (2) Acute right MCA stroke Code(s): I63.511 - Cerebral infarction due to unspecified occlusion or stenosis of right middle cerebral artery Status: Acute Plan: Management per neurology. tPA administered, no improvement. (3) Hypertension Code(s): I10 - Essential (primary) hypertension Status: Acute Qualifiers: Hypertension type: essential hypertension Qualified Code(s): I10 - Essential (primary) hypertension Plan: Continue medications as ordered.
[2018-06-15] MEDS: Insulin NovoLOG Aspart Correctional Sugar Inj SQ SCH ×4 (09:39→21:22)
[2018-06-15] MEDS: amLODIPine 5 MG Tablet NG/OG SCH (09:39)
[2018-06-15] MEDS: Gelatin 12 MM/7 MM Topical Foam TOPICAL PRN (10:41)
[2018-06-15] MEDS: Albumin Human 25% Inj 100 ML IV.SIG PRN (10:41)
[2018-06-15] MEDS: Vancomycin Inj 1,000 MG in Sodium Chlor 0.9% Inj 250 ML IV.SIG SCH (10:42)
[2018-06-15] MEDS: Aspirin 300 MG Supp RECTAL SCH (12:19)
--- NOTE | 2018-06-15 13:37 | P.PNCC ---
Subjective Subjective Remarks/Hospital Course: 06/10: 63-year-old male with a history of hypertension, renal failure, dialysis dependent, presents as a stroke alert. Patient was last seen normal at 1500 p.m. which was within the 3 hour limit. Patient apparently was seen normal and then found in a room at the [facility] with left-sided weakness and a right- sided gaze. The patient initially did not want to go the hospital and was encouraged by the EMS staff to come. He denies any pain. He understands that he is having a stroke. He was unable to move his left upper extremity or left lower extremity. The TPA was administered in the emergency department. CTA of the head and neck shows the intracerebral vasculature is normal in caliber without evidence of aneurysm or abnormal truncation. The patient has been admitted to ICU stroke TPa protocol. 06/11: Resting in bed. Having episodes of nausea. Continues to have left-sided hemiplegia. 06/12: Patient developed worsening respiratory distress with dropping O2 sats requiring supplemental O2 however his O2 sats dropped to the mid 80s and he appeared to be significantly short of breath. He was also having encephalopathy with fluctuating mental status and significant nausea. Head CT done earlier revealed slight hemorrhagic conversion in the area of his infarct. Dr. Do asked that I see the patient as reconsult. decision was made to intubate and I proceeded with endotracheal intubation and patient was placed on mechanical ventilation. Postprocedure chest x-ray showed ET tube in appropriate position and pulmonary edema pattern. Immediately following intubation patient was dialyzed with removal of around 3.5 L of fluid. 06/13: Remains sedated, orally intubated on mechanical ventilation. 06/14: Sedated, arousable, orally intubated on mechanical ventilation. Left- sided weakness persists. Following commands on lightening sedation. Head CT done yesterday showed new areas of hemorrhage in area of ischemic infarct. 06/15: Sedated, arousable, following commands, orally intubated on mechanical ventilation. Objective Vital Signs / I&O: Vital Signs 06/14/18 14:00 06/14/18 16:00 06/14/18 16:45 Temperature 98.8 F Pulse Rate 59 L 58 L Respiratory Rate 12 16 Blood Pressure 106/45 L Pulse Oximetry 100 100 06/14/18 18:00 06/14/18 20:00 06/14/18 20:48 Temperature 98.9 F Pulse Rate 60 60 Respiratory Rate 16 17 Blood Pressure 146/61 H Pulse Oximetry 100 100 06/14/18 22:00 06/15/18 00:00 06/15/18 00:19 Temperature 98.7 F Pulse Rate 60 59 L Respiratory Rate 16 Blood Pressure Pulse Oximetry 100 06/15/18 02:00 06/15/18 03:38 06/15/18 04:00 Temperature 98.6 F Pulse Rate 59 L 60 Respiratory Rate 16 16 Blood Pressure 143/65 H Pulse Oximetry 100 99 06/15/18 06:00 06/15/18 08:00 06/15/18 08:41 Temperature 98.7 F Pulse Rate 60 60 Respiratory Rate 16 19 Blood Pressure 142/60 H Pulse Oximetry 100 100 06/15/18 10:00 06/15/18 12:00 06/15/18 12:34 Temperature 98.1 F Pulse Rate 82 61 Respiratory Rate 16 17 Blood Pressure 99/56 L Pulse Oximetry 100 100 Intake & Output 06/14/18 06/15/18 06/15/18 18:59 06:59 18:59 Intake Total 160 / 160 300 / 300 400 / 400 Output Total 400 / 400 300 / 300 3000 / 3000 Balance -240 / -240 0 / 0 -2600 / -2600 Weight 73.1 kg Intake: IV 100 / 100 300 / 300 400 / 400 Flexbumin 25% Inj 100 ML @ 60 100 / 100 mls/hr IV.SIG WITH DIALYSIS PRN Rx#:[id number] Buminate 5% Inj 250 ML @ As 250 / 250 Directed IV.SIG ONCE ONE Rx#: [id number] Zosyn 2.25 GM Premix 50 ML @ 100 / 100 50 / 50 50 / 50 100 mls/hr IV.SIG Q8H [facility]LLEN Rx#: [id number] Vancomycin Inj 1,000 MG In NS 250 / 250 Inj 250 ML @ 250 mls/hr IV.SIG WITH DIALYSIS [facility] Rx#:[id number] Tube Irrigant 60 / 60 Output: Hemodialysis Amount 3000 / 3000 Urine Amount (Catheter) 100 / 100 300 / 300 Indwelling Urethral Catheter 100 / 100 300 / 300 Gastric Drainage 300 / 300 Orogastric Tube 300 / 300 Other: Date of Last Bowel Movement 06/14/18 06/14/18 06/14/18 # Incontinent Bowel Movements 1 Weight On Admission 65.9 kg Result Diagrams: 06/15/18 08:51 06/15/18 03:55 Objective Remarks: HEENT/ Neuro: Sedated, arousable, following commands, orally intubated, Pallor present, no icterus, tongue/ mucosa moist, left rachael-paresis Neck: No JVD Chest/Pulm: on mech vent, good air entry bilaterally, no wheezing or crackles CVS: S1-S2 regular, no murmur GI/abdomen: soft, nontender, bowel sounds sluggish Extremities: warm bilaterally, no edema Procedures: - Assessment and Plan - Assessment and Plan Plan: Acute CVA -Status post TPA administration -Neuro checks per unit protocol -Repeat CT head 06/13 with new areas of hemorrhage in area of right parieto- occipital infarct. Neurology following. Neurosurgery consulted. -PT and OT as tolerated -Further management per neurology -Status post JAVIER Acute respiratory failure on mechanical ventilation Pulmonary edema Possible aspiration -Continue mechanical ventilation, vent bundle, bronchodilators as needed. -Sputum Gram stain and cultures sent. Blood cultures pending -Empiric antibiotic coverage with IV Zosyn started 06/12 Daily CPAP trials. ESRD -Continue hemodialysis per renal Hypertension -Cardene drip to keep SBP less than 180 -Labetalol and enalapril IV as needed -Started amlodipine 5 mg daily on 06/13 Nausea/vomiting -Zofran and Phenergan as needed Dyslipidemia -Pravastatin DVT GI prophylaxis -Teds SCDs -No pharmacological DVT prophylaxis 24 hours post TPA -Pepcid Discussed with patient's following intubation regarding current clinical status and plan of care and she voiced understanding. Condition critical Time spent on critical care excluding procedures 35 minutes
[2018-06-15] MEDS: Vasopressin Inj 40 UNIT in Sodium Chlor 0.9% Inj 98 ML IV.CONT PRN (19:00)
[2018-06-15] MEDS ORDERED: Sod Chloride 0.9% Inj 2,000 ML IV.SIG ONE (20:30)
[2018-06-16] MEDS: Vasopressin Inj 40 UNIT in Sodium Chlor 0.9% Inj 98 ML IV.CONT PRN (05:58)
--- NOTE | 2018-06-16 07:26 | P.PNCC ---
Subjective Subjective Remarks/Hospital Course: 06/10: 63-year-old male with a history of hypertension, renal failure, dialysis dependent, presents as a stroke alert. Patient was last seen normal at 1500 p.m. which was within the 3 hour limit. Patient apparently was seen normal and then found in a room at the [facility] with left-sided weakness and a right- sided gaze. The patient initially did not want to go the hospital and was encouraged by the EMS staff to come. He denies any pain. He understands that he is having a stroke. He was unable to move his left upper extremity or left lower extremity. The TPA was administered in the emergency department. CTA of the head and neck shows the intracerebral vasculature is normal in caliber without evidence of aneurysm or abnormal truncation. The patient has been admitted to ICU stroke TPa protocol. 06/11: Resting in bed. Having episodes of nausea. Continues to have left-sided hemiplegia. 06/12: Patient developed worsening respiratory distress with dropping O2 sats requiring supplemental O2 however his O2 sats dropped to the mid 80s and he appeared to be significantly short of breath. He was also having encephalopathy with fluctuating mental status and significant nausea. Head CT done earlier revealed slight hemorrhagic conversion in the area of his infarct. Dr. Do asked that I see the patient as reconsult. decision was made to intubate and I proceeded with endotracheal intubation and patient was placed on mechanical ventilation. Postprocedure chest x-ray showed ET tube in appropriate position and pulmonary edema pattern. Immediately following intubation patient was dialyzed with removal of around 3.5 L of fluid. 06/13: Remains sedated, orally intubated on mechanical ventilation. 06/14: Sedated, arousable, orally intubated on mechanical ventilation. Left- sided weakness persists. Following commands on lightening sedation. Head CT done yesterday showed new areas of hemorrhage in area of ischemic infarct. 06/15: Sedated, arousable, following commands, orally intubated on mechanical ventilation. 06/16: Gentleman sustained a right temporoparietal ischemic stroke with minor bleeding following TPA administration. He required orotracheal intubation because of confusion and hypoxemia. He was noted to have fluid overload at the time related to his ongoing. He has improved after dialysis. He does follow commands with his right side but failed a CPAP spontaneous breathing trial this morning. Objective Vital Signs / I&O: Vital Signs 06/15/18 08:00 06/15/18 08:41 06/15/18 10:00 Temperature 98.7 F Pulse Rate 60 82 Respiratory Rate 16 19 Blood Pressure 142/60 H Pulse Oximetry 100 100 06/15/18 12:00 06/15/18 12:34 06/15/18 14:00 Temperature 98.1 F Pulse Rate 61 82 Respiratory Rate 16 17 Blood Pressure 99/56 L Pulse Oximetry 100 100 06/15/18 16:00 06/15/18 16:55 06/15/18 18:00 Temperature 98.7 F Pulse Rate 66 60 Respiratory Rate 24 18 Blood Pressure 116/48 L Pulse Oximetry 100 98 06/15/18 20:00 06/15/18 20:37 06/15/18 22:00 Temperature 98.3 F Pulse Rate 60 60 Respiratory Rate 18 18 Blood Pressure 157/60 H Pulse Oximetry 100 99 06/16/18 00:00 06/16/18 01:02 06/16/18 02:00 Temperature 98.8 F Pulse Rate 58 L 58 L Respiratory Rate 16 18 Blood Pressure 128/57 L Pulse Oximetry 99 99 06/16/18 04:00 06/16/18 04:23 06/16/18 06:00 Temperature 98.2 F Pulse Rate 60 60 Respiratory Rate 16 20 Blood Pressure 112/48 L Pulse Oximetry 100 99 Intake & Output 06/15/18 06/16/18 06/16/18 18:59 06:59 18:59 Intake Total 450 / 450 1150 / 1150 Output Total 3125 / 3125 100 / 100 Balance -2675 / -2675 1050 / 1050 Weight 64.8 kg Intake: IV 450 / 450 1150 / 1150 Pitressin Inj 40 UNIT In NS Inj 100 / 100 98 ML @ 0.04 UNITS/MIN 6 mls/ hr IV.CONT TITRATE PRN Rx#: [id number] Flexbumin 25% Inj 100 ML @ 60 100 / 100 mls/hr IV.SIG WITH DIALYSIS PRN Rx#:[id number] Zosyn 2.25 GM Premix 50 ML @ 100 / 100 50 / 50 100 mls/hr IV.SIG Q8H [facility] Rx#: [id number] NS Inj 2,000 ML @ Wide Open IV. 1000 / 1000 SIG BOLUS ONE Rx#:[id number] Vancomycin Inj 1,000 MG In NS 250 / 250 Inj 250 ML @ 250 mls/hr IV.SIG WITH DIALYSIS [facility] Rx#:[id number] Output: Hemodialysis Amount 3000 / 3000 Urine Amount (Catheter) 125 / 125 50 / 50 Indwelling Urethral Catheter 125 / 125 50 / 50 Gastric Drainage 50 / 50 Orogastric Tube 50 / 50 Other: Date of Last Bowel Movement 06/15/18 06/16/18 # Incontinent Bowel Movements 1 1 Result Diagrams: 06/15/18 08:51 06/15/18 03:55 Objective Remarks: HEENT/ Neuro: Sedated, arousable, following commands, orally intubated, Pallor present, no icterus, tongue/ mucosa moist, left rachael-paresis Neck: No JVD Chest/Pulm: on mech vent, good air entry bilaterally, no wheezing or crackles CVS: S1-S2 regular, no murmur GI/abdomen: soft, nontender, bowel sounds sluggish Extremities: warm bilaterally, no edema Procedures: - Assessment and Plan - Assessment and Plan Plan: Acute CVA -Status post TPA administration -Neuro checks per unit protocol -Repeat CT head 06/13 with new areas of hemorrhage in area of right parieto- occipital infarct. Neurology following. Neurosurgery consulted. -PT and OT as tolerated -Further management per neurology -Status post JAVIER Acute respiratory failure on mechanical ventilation Pulmonary edema Possible aspiration -Continue mechanical ventilation, vent bundle, bronchodilators as needed. -Sputum Gram stain and cultures sent. Blood cultures pending -Empiric antibiotic coverage with IV Zosyn started 06/12 Daily CPAP trials. ESRD -Continue hemodialysis per renal Hypertension -Cardene drip to keep SBP less than 180 -Labetalol and enalapril IV as needed -Started amlodipine 5 mg daily on 06/13 Nausea/vomiting -Zofran and Phenergan as needed Dyslipidemia -Pravastatin DVT GI prophylaxis -Teds SCDs -No pharmacological DVT prophylaxis 24 hours post TPA -Pepcid Discussed with patient's following intubation regarding current clinical status and plan of care and she voiced understanding. Overall impression: The gentleman remains critically ill and neurologically unstable. We are unable to wean him from the ventilator due to inadequate respiratory effort. 3 L fluid was removed with dialysis yesterday. He remains in a paced ventricular rhythm. Critical care time 45 minutes aside from invasive procedures.
--- NOTE | 2018-06-16 07:47 | P.PNNEU ---
Subjective Subjective Comments: No acute events Active Medications: Active Medications Acetaminophen (Tylenol) 650 mg PO UNSCH PRN PRN Reason: SEE LABEL COMMENTS Amlodipine Besylate (Norvasc) 5 mg NG/OG DAILY [facility] Last Admin: 06/15/18 09:39 Dose: Not Given Aspirin (Aspirin Supp) 300 mg RECTAL DAILY [facility] Last Admin: 06/15/18 12:19 Dose: Not Given Clonidine HCl (Catapres) 0.1 mg PO UNSCH PRN PRN Reason: SEE LABEL COMMENTS Dextrose (D50w Vial) 50 ml IV.PUSH UNSCH PRN PRN Reason: PER HYPOGLYCEMIA PROTOCOL Diphenhydramine HCl (Benadryl) 25 mg PO UNSCH PRN PRN Reason: SEE LABEL COMMENTS Enalaprilat (Vasotec Inj) 1.25 mg IV.PUSH Q4H PRN PRN Reason: For SBP > 220 or DBP > 120 Last Admin: 06/12/18 11:41 Dose: 1.25 mg Gelatin (Gelfoam 12 Mm/7 Mm Topical) 1 foam TOPICAL PRN PRN PRN Reason: help stop bleeding from site Last Admin: 06/15/18 10:41 Dose: 1 foam Gentamicin Sulfate (Gentamicin Inj) 20 mg OTHER WITH DIALYSIS PRN PRN Reason: Dwell Gentamycin Lock Glucagon (Glucagon Inj) 1 mg OTHER UNSCH PRN PRN Reason: for Hypoglycemia Protocol Heparin Sodium (Porcine) (Heparin Inj) 8,000 units OTHER WITH DIALYSIS PRN PRN Reason: for machine prime Heparin Sodium (Porcine) (Heparin Inj) 1,000 units OTHER WITH DIALYSIS PRN PRN Reason: Dwell Heparin to Fill Catheter Nicardipine HCl 25 mg/ Sodium (Chloride) 250 mls @ 50 mls/hr IV.CONT TITRATE PRN; Protocol PRN Reason: Per Protocol Last Titration: 06/12/18 00:12 Dose: Infused Albumin Human (Flexbumin 25% Inj) 100 mls @ 60 mls/hr IV.SIG WITH DIALYSIS PRN PRN Reason: hypotension / volume replace Last Infusion: 06/15/18 12:15 Dose: Infused Sodium Chloride (Ns Inj) 1,000 mls @ 0 mls/hr OTHER .Q0M PRN PRN Reason: for prime and rinse back Sodium Chloride (Ns Inj) 1,000 mls @ 200 mls/hr OTHER .Q5H PRN PRN Reason: for dialyzer flush PRN Sodium Chloride (Ns Inj) 1,000 mls @ 0 mls/hr IV.CONT .Q0M PRN PRN Reason: hypotension / volume replace Acetaminophen (Ofirmev Inj) 1,000 mg in 100 mls @ 400 mls/hr IV.SIG Q6H PRN PRN Reason: TEMP > 101 Last Infusion: 06/12/18 00:32 Dose: Infused Propofol (Diprivan 1000 Mg/100 Ml Inj) 1,000 mg in 100 mls @ 2.151 mls/hr IV.CONT TITRATE PRN; Protocol PRN Reason: Per Protocol Last Titration: 06/14/18 13:35 Dose: 0 mcg/kg/min, 0 mls/hr Piperacillin/Tazobactam/Dextrose (Zosyn 2.25 Gm Premix) 50 mls @ 100 mls/hr IV.SIG Q8H [facility] Last Infusion: 06/16/18 00:04 Dose: Infused Vancomycin HCl 1,000 mg/ (Sodium Chloride) 250 mls @ 250 mls/hr IV.SIG WITH DIALYSIS [facility] Last Infusion: 06/15/18 12:15 Dose: Infused Vasopressin 40 unit/ Sodium (Chloride) 100 mls @ 6 mls/hr IV.CONT TITRATE PRN; Protocol PRN Reason: Per Protocol Last Admin: 06/16/18 05:58 Dose: 0.04 units/min, 6 mls/hr Insulin Aspart (Novolog Insulin Correctional Sugar Inj) 0 unit SQ ACHS [facility]; Protocol Last Admin: 06/15/18 21:22 Dose: 5 unit Labetalol HCl (Trandate Inj) 10 mg IV.PUSH Q2H PRN PRN Reason: For SBP > 220 or DBP > 120 Last Admin: 06/12/18 15:59 Dose: 10 mg Mannitol (Mannitol Inj) 12.5 gm IV.PUSH UNSCH PRN PRN Reason: hypotension / volume replace Nitroglycerin (Nitrostat Sl) 0.4 mg SL Q5M PRN PRN Reason: CHEST PAIN Ondansetron HCl (Zofran Inj) 4 mg IV.PUSH UNSCH PRN PRN Reason: NAUSEA OR VOMITING Ondansetron HCl (Zofran Inj) 4 mg IV.PUSH Q6H PRN PRN Reason: NAUSEA Last Admin: 06/12/18 11:42 Dose: 4 mg Pharmacy Profile Note (Vancomycin Consult Pharmacy) 1 each OTHER UNSCH PRN PRN Reason: Pharmacy to dose Pravastatin Sodium (Pravachol) 40 mg PO HS [facility] Last Admin: 06/15/18 20:22 Dose: 40 mg Promethazine HCl (Phenergan Inj) 12.5 mg IM Q6H PRN PRN Reason: VOMITING Sodium Chloride (Ns Flush) 2 ml IV.FLUSH BID [facility] Last Admin: 06/15/18 20:22 Dose: 2 ml Sodium Chloride (Ns Flush) 2 ml IV.FLUSH PRN PRN PRN Reason: FLUSH AFTER USING IV ACCESS Sodium Chloride (Ns Flush) 5 ml IV.FLUSH PRN PRN PRN Reason: flush each lumen during HD Allergies/Adverse Reactions: Allergies Allergy/AdvReac Type Severity Reaction Status Date / Time No Known Allergies Allergy Verified 06/10/18 16:53 Review of Systems All other systems reviewed negative except as stated in HPI Physical Exam Vital signs: Vital Signs 06/15/18 08:00 06/15/18 08:41 06/15/18 10:00 Temperature 98.7 F Pulse Rate 60 82 Respiratory Rate 16 19 Blood Pressure 142/60 H Pulse Oximetry 100 100 06/15/18 12:00 06/15/18 12:34 06/15/18 14:00 Temperature 98.1 F Pulse Rate 61 82 Respiratory Rate 16 17 Blood Pressure 99/56 L Pulse Oximetry 100 100 06/15/18 16:00 06/15/18 16:55 06/15/18 18:00 Temperature 98.7 F Pulse Rate 66 60 Respiratory Rate 24 18 Blood Pressure 116/48 L Pulse Oximetry 100 98 06/15/18 20:00 06/15/18 20:37 06/15/18 22:00 Temperature 98.3 F Pulse Rate 60 60 Respiratory Rate 18 18 Blood Pressure 157/60 H Pulse Oximetry 100 99 06/16/18 00:00 06/16/18 01:02 06/16/18 02:00 Temperature 98.8 F Pulse Rate 58 L 58 L Respiratory Rate 16 18 Blood Pressure 128/57 L Pulse Oximetry 99 99 06/16/18 04:00 06/16/18 04:23 06/16/18 06:00 Temperature 98.2 F Pulse Rate 60 60 Respiratory Rate 16 20 Blood Pressure 112/48 L Pulse Oximetry 100 99 Intake & Output 06/15/18 06/16/18 06/16/18 18:59 06:59 18:59 Intake Total 450 / 450 1150 / 1150 Output Total 3125 / 3125 100 / 100 Balance -2675 / -2675 1050 / 1050 Weight 64.8 kg Intake: IV 450 / 450 1150 / 1150 Pitressin Inj 40 UNIT In NS Inj 100 / 100 98 ML @ 0.04 UNITS/MIN 6 mls/ hr IV.CONT TITRATE PRN Rx#: [id number] Flexbumin 25% Inj 100 ML @ 60 100 / 100 mls/hr IV.SIG WITH DIALYSIS PRN Rx#:[id number] Zosyn 2.25 GM Premix 50 ML @ 100 / 100 50 / 50 100 mls/hr IV.SIG Q8H [facility] Rx#: [id number] NS Inj 2,000 ML @ Wide Open IV. 1000 / 1000 SIG BOLUS ONE Rx#:[id number] Vancomycin Inj 1,000 MG In NS 250 / 250 Inj 250 ML @ 250 mls/hr IV.SIG WITH DIALYSIS [facility] Rx#:[id number] Output: Hemodialysis Amount 3000 / 3000 Urine Amount (Catheter) 125 / 125 50 / 50 Indwelling Urethral Catheter 125 / 125 50 / 50 Gastric Drainage 50 / 50 Orogastric Tube 50 / 50 Other: Date of Last Bowel Movement 06/15/18 06/16/18 # Incontinent Bowel Movements 1 1 Narrative: GENERAL: in NAD, SKIN: Warm and dry. HEAD: Atraumatic. Normocephalic. EYES: Pupils equal and round. No scleral icterus. ENT: No nasal bleeding or discharge. Mucous membranes pink and moist. NECK: Trachea midline. No JVD. CARDIOVASCULAR: Systolic murmur RESPIRATORY: intubated GASTROINTESTINAL: Abdomen soft, non-tender, nondistended. MUSCULOSKELETAL: Extremities without clubbing, cyanosis, or edema. No obvious deformities. NEUROLOGICAL: intubated, mildly somnolent, awakens, left facial droop, follows with rt side; left hemiplegia, did withdraw left leg- reflexive vs purposeful PSYCHIATRIC: Calm - Constitutional no acute distress - Routine HEENT Exam Head: Present: normocephalic - Urinary Catheter Management Indwelling Urethral Catheter Cath placed during this visit: yes Reason for continuing: Hourly intake/output Insertion date: 06/10/18 Insertion time: 16:40 Objective Laboratory Results - last 24 hr 06/15/18 06/15/18 06/15/18 08:51 12:41 16:26 WBC 10.7 RBC 3.93 L Hgb 12.6 L Hct 37.1 L MCV 94.3 MCH 31.9 MCHC 33.8 RDW 13.6 Plt Count 171 MPV 8.8 Neut % (Auto) 83.1 H Lymph % (Auto) 10.3 [place] % (Auto) 6.0 Eos % (Auto) 0.1 Baso % (Auto) 0.5 Neut # (Auto) 8.9 H Lymph # (Auto) 1.1 [place] # (Auto) 0.6 Eos # (Auto) 0.0 Baso # (Auto) 0.0 WBC Differential . Differential Comment Auto diff final POC Glucose 155 H 225 H 06/15/18 20:29 WBC RBC Hgb Hct MCV MCH MCHC RDW Plt Count MPV Neut % (Auto) Lymph % (Auto) [place] % (Auto) Eos % (Auto) Baso % (Auto) Neut # (Auto) Lymph # (Auto) [place] # (Auto) Eos # (Auto) Baso # (Auto) WBC Differential Differential Comment POC Glucose 279 H Microbiology 06/12/18 19:40 Aerobic Blood Culture - Preliminary Blood - Peripheral No growth in 3 days Anaerobic Blood Culture - Preliminary No growth in 3 days 06/12/18 19:30 Aerobic Blood Culture - Preliminary Blood - Peripheral No growth in 3 days Anaerobic Blood Culture - Preliminary No growth in 3 days Review/Management - Diagnosis (1) Acute right MCA stroke Code(s): I63.511 - Cerebral infarction due to unspecified occlusion or stenosis of right middle cerebral artery Status: Acute Current Visit: Yes (2) Hypertension Code(s): I10 - Essential (primary) hypertension Status: Acute Current Visit : Yes (3) Chronic kidney disease Code(s): N18.9 - Chronic kidney disease, unspecified Status: Acute Current Visit: Yes (4) Renal failure, chronic Code(s): N18.9 - Chronic kidney disease, unspecified Status: Acute Current Visit: Yes - Review/Management Plan: 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 Cardio embolic etiology is certainly possible Atherosclerotic disease of the carotid bulb but no occlusion seen by cardio. cisco negative. suggest event monitor outpatient. Recommendations f/u ct brain eeg trial of provigil for hypersomnolence d/w rn (2) Hypertension Qualifiers: Hypertension type: essential hypertension Qualified Code(s): I10 - Essential (primary) hypertension (3) Chronic kidney disease Qualifiers: Chronic kidney disease stage: unspecified stage Qualified Code(s): N18.9 - Chronic kidney disease, unspecified (4) Renal failure, chronic Qualifiers: Chronic kidney disease stage: stage 5 Qualified Code(s): N18.5 - Chronic kidney disease, stage 5
[2018-06-16 08:04] LABS: Alanine Aminotransferase 38 U/L (12-78); Alkaline Phosphatase 99 U/L (45-117); Anion Gap 24 meq/L (5-15); Aspartate Aminotransferase 26 U/L (15-37); Blood Urea Nitrogen 100 mg/dL (7-18); Carbon Dioxide 23.8 meq/L (21.0-32.0); Chloride 93 meq/L (98-107); Glomerular Filtration Rate 8 mL/min (>89); Glucose,Random 227 mg/dL (74-106); Potassium 4.7 meq/L (3.5-5.1); Sodium 141 meq/L (136-145); Total Protein 8.4 g/dL (6.4-8.2)
[2018-06-16] MEDS: amLODIPine 5 MG Tablet NG/OG SCH (08:37)
[2018-06-16] MEDS: Aspirin 300 MG Supp RECTAL SCH (08:37)
[2018-06-16] MEDS: Insulin NovoLOG Aspart Correctional Sugar Inj SQ SCH ×4 (08:39→21:37)
[2018-06-16] MEDS: Piperacil/Tazo 2.25 GM Premix 50 ML IV.SIG SCH ×2 (09:30→17:01)
[2018-06-16] MEDS: Aspirin 325 MG Tablet PO SCH (09:53)
[2018-06-16] MEDS: Beneprotein Powder Packet G-TUBE SCH ×3 (10:00→17:07)
--- NOTE | 2018-06-16 11:02 | P.DIET ---
Nutritional Evaluation Type of nutrition evaluation: initial Nutrition consult regarding: Tube Feeding Objective - Diagnosis Acute Embolic CVA, Renal Failure, Dialysis - Objective % IBW: 83 (IBW = 172#) Body Weight Used for Calculations: Actual (64.8 kg) Energy Needs - Lower Range (kCal/kg): 28 Energy Needs - Upper Range (kCal/kg): 32 Lower Limit kCal/kg (kCals): 1,814 Upper Limit kCal/kg (kCals): 2,074 Lower Limit Protein Factor (Grams per Kg): 1.2 Upper Limit Protein Factor (Grams per Kg): 1.5 Lower Protein Needs (Protein): 78 Upper Protein Needs (Protein): 97 Dietitian Reviewed in Medical Record: Curent medications, Intake & Output, Labs , Medical history, Tube feeding Diet Order: NPO Assessment Assessment: Pt is at high nutrition risk 2' to his need for TFing. Pt has ESRD on dialysis. Current TF order is for Glucerna 1.5 @ 55 mls/hr goal. Recommend change to Nepro with goal rate of 45 mls/hr to provide 1944 kcals, 87.5 gms protein and 785 mls of free water. Recommendations: Nepro @ 45 mls/hr goal Dietitian to Monitor: Lab values, Tube feeding tolerance, Weight change, Medical course
--- NOTE | 2018-06-16 11:12 | P.PNNP ---
Subjective Interval history: Lethargic, failed weaning trial. Very high BUN noted, in spite of dialysis yesterday. Physical Exam Vital signs: Vital Signs 06/15/18 12:00 06/15/18 12:34 06/15/18 14:00 Temperature 98.1 F Pulse Rate 61 82 Respiratory Rate 16 17 Blood Pressure 99/56 L Pulse Oximetry 100 100 06/15/18 16:00 06/15/18 16:55 06/15/18 18:00 Temperature 98.7 F Pulse Rate 66 60 Respiratory Rate 24 18 Blood Pressure 116/48 L Pulse Oximetry 100 98 06/15/18 20:00 06/15/18 20:37 06/15/18 22:00 Temperature 98.3 F Pulse Rate 60 60 Respiratory Rate 18 18 Blood Pressure 157/60 H Pulse Oximetry 100 99 06/16/18 00:00 06/16/18 01:02 06/16/18 02:00 Temperature 98.8 F Pulse Rate 58 L 58 L Respiratory Rate 16 18 Blood Pressure 128/57 L Pulse Oximetry 99 99 06/16/18 04:00 06/16/18 04:23 06/16/18 06:00 Temperature 98.2 F Pulse Rate 60 60 Respiratory Rate 16 20 Blood Pressure 112/48 L Pulse Oximetry 100 99 06/16/18 08:18 Temperature Pulse Rate Respiratory Rate 12 Blood Pressure Pulse Oximetry 98 Intake & Output 06/15/18 06/16/18 06/16/18 18:59 06:59 18:59 Intake Total 450 / 450 1150 / 1150 50 / 50 Output Total 3125 / 3125 100 / 100 Balance -2675 / -2675 1050 / 1050 50 / 50 Weight 64.8 kg Intake: IV 450 / 450 1150 / 1150 50 / 50 Pitressin Inj 40 UNIT In NS Inj 100 / 100 98 ML @ 0.04 UNITS/MIN 6 mls/ hr IV.CONT TITRATE PRN Rx#: [id number] Flexbumin 25% Inj 100 ML @ 60 100 / 100 mls/hr IV.SIG WITH DIALYSIS PRN Rx#:[id number] Zosyn 2.25 GM Premix 50 ML @ 100 / 100 50 / 50 50 / 50 100 mls/hr IV.SIG Q8H [facility] Rx#: [id number] NS Inj 2,000 ML @ Wide Open IV. 1000 / 1000 SIG BOLUS ONE Rx#:[id number] Vancomycin Inj 1,000 MG In NS 250 / 250 Inj 250 ML @ 250 mls/hr IV.SIG WITH DIALYSIS [facility] Rx#:[id number] Output: Hemodialysis Amount 3000 / 3000 Urine Amount (Catheter) 125 / 125 50 / 50 Indwelling Urethral Catheter 125 / 125 50 / 50 Gastric Drainage 50 / 50 Orogastric Tube 50 / 50 Other: Date of Last Bowel Movement 06/15/18 06/16/18 06/15/18 # Incontinent Bowel Movements 1 1 Narrative: GENERAL: in NAD, SKIN: Warm and dry. HEAD: Atraumatic. Normocephalic. EYES: Pupils equal and round. No scleral icterus. ENT: No nasal bleeding or discharge. Mucous membranes pink and moist. NECK: Trachea midline. No JVD. CARDIOVASCULAR: Systolic murmur RESPIRATORY: intubated GASTROINTESTINAL: Abdomen soft, non-tender, nondistended. MUSCULOSKELETAL: Extremities without clubbing, cyanosis, or edema. No obvious deformities. NEUROLOGICAL: intubated, left facial droop, left hemiplegia, PSYCHIATRIC: Calm - Urinary Catheter Management Indwelling Urethral Catheter Cath placed during this visit: yes Reason for continuing: Hourly intake/output Insertion date: 06/10/18 Insertion time: 16:40 Assessment and Plan - Assessment (1) Renal failure, chronic Code(s): N18.9 - Chronic kidney disease, unspecified Status: Acute Qualifiers: Chronic kidney disease stage: stage 5 Qualified Code(s): N18.5 - Chronic kidney disease, stage 5 Plan: We will continue dialysis MWF. Avoid Gadolinium. Monitor fluid and electrolytes. May need at least 4 hour of dialysis tomorrow. Apparently the is concerned about his weight loss, and does not want extra dialysis. (2) Acute right MCA stroke Code(s): I63.511 - Cerebral infarction due to unspecified occlusion or stenosis of right middle cerebral artery Status: Acute Plan: Management per neurology. tPA administered, no improvement. (3) Hypertension Code(s): I10 - Essential (primary) hypertension Status: Acute Qualifiers: Hypertension type: essential hypertension Qualified Code(s): I10 - Essential (primary) hypertension Plan: Continue medications as ordered. - Attending Attestation Prognosis is guarded to poor.
[2018-06-16] MEDS: Modafinil 200 MG Tablet PO SCH (17:07)
--- NOTE | 2018-06-16 21:04 | CT ---
EXAM DATE: 06/16/2018 8:42 PM EDT AGE/SEX: 63 years / Male INDICATIONS: Altered mental status. CLINICAL DATA: This is the patient's subsequent encounter. Patient reports that signs and symptoms h ave been present for 1 week and indicates a pain score of Nonresponsive. MEDICAL/SURGICAL HISTORY: Cerebrovascular disease. Renal failure. Pacemaker. RADIATION DOSE: 37.22 CTDI (mGy) COMPARISON: [facility] [place], CT HEAD W/O CONTRAST, 06/13/2018. . TECHNIQUE: CT of the head without contrast. Using automated exposure control and adjustment of the mA and/or kV according to patient size, radiation dose was kept as low as reasonably achievable to ob tain optimal diagnostic quality images. DICOM format image data is available electronically for revi ew and comparison. FINDINGS: The evolving subacute infarct in the right parietotemporal region is again noted and with very faint surrounding parenchymal hemorrhage. Findings are not significantly changed. Mass effect is minimal. N o midline shift demonstrated. No evidence of a new/acute ischemic event. CONCLUSION: Evolving right parietotemporal subacute infarct with mild surrounding parenchymal hemorrh age not significantly changed. No midline shift. . Electronically signed by: Matthias Boo MD 06/16/2018 9:03 PM EDT
[2018-06-17] MEDS: Vasopressin Inj 40 UNIT in Sodium Chlor 0.9% Inj 98 ML IV.CONT PRN ×2 (00:47→16:32)
[2018-06-17] MEDS: Piperacil/Tazo 2.25 GM Premix 50 ML IV.SIG SCH ×4 (00:48→23:30)
[2018-06-17] MEDS: Albumin Human 25% Inj 100 ML IV.SIG PRN ×2 (07:53→09:50)
[2018-06-17] MEDS: Insulin NovoLOG Aspart Correctional Sugar Inj SQ SCH ×4 (07:53→21:01)
[2018-06-17] MEDS ORDERED: Norepinephrine Inj 16 MG in Sodium Chlor 0.9% Inj 234 ML IV.CONT PRN (07:54)
[2018-06-17] MEDS ORDERED: Albumin Human 25% Inj 100 ML IV.SIG ONE (08:00)
--- NOTE | 2018-06-17 09:13 | P.PNNEU ---
Subjective Subjective Comments: Getting hemodialysis no acute events Active Medications: Active Medications Acetaminophen (Tylenol) 650 mg PO UNSCH PRN PRN Reason: SEE LABEL COMMENTS Amlodipine Besylate (Norvasc) 5 mg NG/OG DAILY [facility] Last Admin: 06/16/18 08:37 Dose: 5 mg Aspirin (Aspirin) 325 mg PO DAILY [facility] Last Admin: 06/16/18 09:53 Dose: Not Given Clonidine HCl (Catapres) 0.1 mg PO UNSCH PRN PRN Reason: SEE LABEL COMMENTS Dextrose (D50w Vial) 50 ml IV.PUSH UNSCH PRN PRN Reason: PER HYPOGLYCEMIA PROTOCOL Diphenhydramine HCl (Benadryl) 25 mg PO UNSCH PRN PRN Reason: SEE LABEL COMMENTS Enalaprilat (Vasotec Inj) 1.25 mg IV.PUSH Q4H PRN PRN Reason: For SBP > 220 or DBP > 120 Last Admin: 06/12/18 11:41 Dose: 1.25 mg Gelatin (Gelfoam 12 Mm/7 Mm Topical) 1 foam TOPICAL PRN PRN PRN Reason: help stop bleeding from site Last Admin: 06/15/18 10:41 Dose: 1 foam Gentamicin Sulfate (Gentamicin Inj) 20 mg OTHER WITH DIALYSIS PRN PRN Reason: Dwell Gentamycin Lock Glucagon (Glucagon Inj) 1 mg OTHER UNSCH PRN PRN Reason: for Hypoglycemia Protocol Heparin Sodium (Porcine) (Heparin Inj) 8,000 units OTHER WITH DIALYSIS PRN PRN Reason: for machine prime Heparin Sodium (Porcine) (Heparin Inj) 1,000 units OTHER WITH DIALYSIS PRN PRN Reason: Dwell Heparin to Fill Catheter Nicardipine HCl 25 mg/ Sodium (Chloride) 250 mls @ 50 mls/hr IV.CONT TITRATE PRN; Protocol PRN Reason: Per Protocol Last Titration: 06/12/18 00:12 Dose: Infused Albumin Human (Flexbumin 25% Inj) 100 mls @ 60 mls/hr IV.SIG WITH DIALYSIS PRN PRN Reason: hypotension / volume replace Last Infusion: 06/15/18 12:15 Dose: Infused Sodium Chloride (Ns Inj) 1,000 mls @ 0 mls/hr OTHER .Q0M PRN PRN Reason: for prime and rinse back Sodium Chloride (Ns Inj) 1,000 mls @ 200 mls/hr OTHER .Q5H PRN PRN Reason: for dialyzer flush PRN Sodium Chloride (Ns Inj) 1,000 mls @ 0 mls/hr IV.CONT .Q0M PRN PRN Reason: hypotension / volume replace Acetaminophen (Ofirmev Inj) 1,000 mg in 100 mls @ 400 mls/hr IV.SIG Q6H PRN PRN Reason: TEMP > 101 Last Infusion: 06/12/18 00:32 Dose: Infused Propofol (Diprivan 1000 Mg/100 Ml Inj) 1,000 mg in 100 mls @ 2.151 mls/hr IV.CONT TITRATE PRN; Protocol PRN Reason: Per Protocol Last Titration: 06/14/18 13:35 Dose: 0 mcg/kg/min, 0 mls/hr Piperacillin/Tazobactam/Dextrose (Zosyn 2.25 Gm Premix) 50 mls @ 100 mls/hr IV.SIG Q8H [facility] Last Infusion: 06/17/18 01:20 Dose: Infused Vancomycin HCl 1,000 mg/ (Sodium Chloride) 250 mls @ 250 mls/hr IV.SIG WITH DIALYSIS [facility] Last Infusion: 06/15/18 12:15 Dose: Infused Vasopressin 40 unit/ Sodium (Chloride) 100 mls @ 6 mls/hr IV.CONT TITRATE PRN; Protocol PRN Reason: Per Protocol Last Admin: 06/17/18 00:47 Dose: 0.03 units/min, 4.5 mls/hr Albumin Human (Flexbumin 25% Inj) 100 mls @ 66.667 mls/hr IV.SIG NOW ONE Stop: 06/17/18 09:29 Last Admin: 06/17/18 08:10 Dose: 66.67 mls/hr Norepinephrine Bitartrate 16 (mg/ Sodium Chloride) 250 mls @ 1.87 mls/hr IV.CONT TITRATE PRN; Protocol PRN Reason: See Protocol Insulin Aspart (Novolog Insulin Correctional Sugar Inj) 0 unit SQ ACHS [facility]; Protocol Last Admin: 06/17/18 07:53 Dose: 9 unit Labetalol HCl (Trandate Inj) 10 mg IV.PUSH Q2H PRN PRN Reason: For SBP > 220 or DBP > 120 Last Admin: 06/12/18 15:59 Dose: 10 mg Mannitol (Mannitol Inj) 12.5 gm IV.PUSH UNSCH PRN PRN Reason: hypotension / volume replace Metoclopramide HCl (Reglan Inj) 5 mg IV.PUSH Q8HR [facility]; Protocol Last Admin: 06/17/18 05:44 Dose: 5 mg Miscellaneous (Pill Splitter) 1 each [facility] Modafinil (Provigil) 100 mg PO DAILY [facility] Last Admin: 06/16/18 17:07 Dose: 100 mg Nitroglycerin (Nitrostat Sl) 0.4 mg SL Q5M PRN PRN Reason: CHEST PAIN Ondansetron HCl (Zofran Inj) 4 mg IV.PUSH Q6H PRN PRN Reason: NAUSEA Last Admin: 06/12/18 11:42 Dose: 4 mg Pharmacy Profile Note (Vancomycin Consult Pharmacy) 1 each OTHER UNSCH PRN PRN Reason: Pharmacy to dose Pravastatin Sodium (Pravachol) 40 mg PO HS [facility] Last Admin: 06/16/18 21:38 Dose: 40 mg Sodium Chloride (Ns Flush) 2 ml IV.FLUSH BID [facility] Last Admin: 06/16/18 21:38 Dose: 2 ml Sodium Chloride (Ns Flush) 2 ml IV.FLUSH PRN PRN PRN Reason: FLUSH AFTER USING IV ACCESS Sodium Chloride (Ns Flush) 5 ml IV.FLUSH PRN PRN PRN Reason: flush each lumen during HD Terbutaline Sulfate (Brethine Inj) 1 mg SQ UNSCH PRN PRN Reason: For Extravasation Whey (Beneprotein Powder) 1 packet G-TUBE TID [facility] Last Admin: 06/16/18 17:07 Dose: 1 packet Allergies/Adverse Reactions: Allergies Allergy/AdvReac Type Severity Reaction Status Date / Time No Known Allergies Allergy Verified 06/10/18 16:53 Review of Systems All other systems reviewed negative except as stated in HPI Physical Exam Vital signs: Vital Signs 06/16/18 10:00 06/16/18 11:28 06/16/18 12:00 Temperature 99.7 F H Pulse Rate 62 60 Respiratory Rate 12 12 Blood Pressure 141/59 H Pulse Oximetry 100 99 06/16/18 14:00 06/16/18 16:00 06/16/18 16:48 Temperature 98.2 F Pulse Rate 60 58 L Respiratory Rate 13 13 Blood Pressure 149/57 H Pulse Oximetry 99 100 06/16/18 18:00 06/16/18 19:59 06/16/18 20:00 Temperature 99.2 F Pulse Rate 60 60 Respiratory Rate 13 12 Blood Pressure 122/42 L Pulse Oximetry 100 100 06/16/18 20:37 06/16/18 22:00 06/17/18 00:00 Temperature 99.1 F Pulse Rate 58 L 64 Respiratory Rate 13 Blood Pressure 139/61 Pulse Oximetry 100 99 06/17/18 00:59 06/17/18 02:00 06/17/18 04:00 Temperature 98.6 F Pulse Rate 62 61 Respiratory Rate 12 12 Blood Pressure 128/57 L Pulse Oximetry 100 100 06/17/18 04:16 06/17/18 06:00 06/17/18 08:09 Temperature Pulse Rate 72 Respiratory Rate 12 20 Blood Pressure Pulse Oximetry 100 100 Intake & Output 06/16/18 06/17/18 06/17/18 18:59 06:59 18:59 Intake Total 450 / 450 530 / 530 Output Total 65 / 65 100 / 100 Balance 385 / 385 430 / 430 Weight 64.7 kg Intake: IV 100 / 100 150 / 150 Pitressin Inj 40 UNIT In NS Inj 100 / 100 98 ML @ 0.04 UNITS/MIN 6 mls/ hr IV.CONT TITRATE PRN Rx#: [id number] Zosyn 2.25 GM Premix 50 ML @ 100 / 100 50 / 50 100 mls/hr IV.SIG Q8H [facility] Rx#: [id number] Tube Feeding 380 / 380 Tube Irrigant 150 / 150 Water Bolus Amount 200 / 200 Output: Urine Amount (Catheter) 65 / 65 100 / 100 Indwelling Urethral Catheter 65 / 65 100 / 100 Other: Date of Last Bowel Movement 06/16/18 06/17/18 # Incontinent Bowel Movements 3 Narrative: GENERAL: in NAD, SKIN: Warm and dry. HEAD: Atraumatic. Normocephalic. EYES: Pupils equal and round. No scleral icterus. ENT: No nasal bleeding or discharge. Mucous membranes pink and moist. NECK: Trachea midline. No JVD. CARDIOVASCULAR: Systolic murmur RESPIRATORY: intubated GASTROINTESTINAL: Abdomen soft, non-tender, nondistended. MUSCULOSKELETAL: Extremities without clubbing, cyanosis, or edema. No obvious deformities. NEUROLOGICAL: More awake, left facial droop, follows with rt side; left hemiplegia, crude left arm abduction abduction 0-1 out of 5 did withdraw left leg- reflexive vs purposeful PSYCHIATRIC: Calm - Constitutional no acute distress - Routine HEENT Exam Head: Present: normocephalic - Urinary Catheter Management Indwelling Urethral Catheter Cath placed during this visit: yes Reason for continuing: Hourly intake/output Insertion date: 06/10/18 Insertion time: 16:40 Objective Laboratory Results - last 24 hr 06/16/18 06/16/18 06/16/18 12:43 16:41 21:23 POC Glucose 294 H 246 H 226 H Random Vancomycin 06/17/18 06/17/18 07:40 07:59 POC Glucose 366 H Random Vancomycin Cancelled Microbiology 06/12/18 19:40 Aerobic Blood Culture - Preliminary Blood - Peripheral No growth in 4 days Anaerobic Blood Culture - Preliminary No growth in 4 days 06/12/18 19:30 Aerobic Blood Culture - Preliminary Blood - Peripheral No growth in 4 days Anaerobic Blood Culture - Preliminary No growth in 4 days Review/Management - Diagnosis (1) Acute right MCA stroke Code(s): I63.511 - Cerebral infarction due to unspecified occlusion or stenosis of right middle cerebral artery Status: Acute Current Visit: Yes (2) Hypertension Code(s): I10 - Essential (primary) hypertension Status: Acute Current Visit : Yes (3) Chronic kidney disease Code(s): N18.9 - Chronic kidney disease, unspecified Status: Acute Current Visit: Yes (4) Renal failure, chronic Code(s): N18.9 - Chronic kidney disease, unspecified Status: Acute Current Visit: Yes - Review/Management Plan: 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 Cardio embolic etiology is certainly possible Atherosclerotic disease of the carotid bulb but no occlusion seen by cardio. cisco negative. suggest event monitor outpatient. Recommendations f/u ct brain; reviewed appears to have little more hemorrhage compared to previous CT of my review We will hold aspirin for now trial of provigil for hypersomnolence Extubation when feasible Aggressive therapy and nutritional support Appreciate critical care (2) Hypertension Qualifiers: Hypertension type: essential hypertension Qualified Code(s): I10 - Essential (primary) hypertension (3) Chronic kidney disease Qualifiers: Chronic kidney disease stage: unspecified stage Qualified Code(s): N18.9 - Chronic kidney disease, unspecified (4) Renal failure, chronic Qualifiers: Chronic kidney disease stage: stage 5 Qualified Code(s): N18.5 - Chronic kidney disease, stage 5
[2018-06-17] MEDS: Beneprotein Powder Packet G-TUBE SCH ×3 (09:14→17:14)
[2018-06-17] MEDS: Modafinil 200 MG Tablet PO SCH (09:15)
[2018-06-17] MEDS: amLODIPine 5 MG Tablet NG/OG SCH (09:15)
[2018-06-17 09:29] LABS: Alanine Aminotransferase 32 U/L (12-78); Albumin 3.6 g/dL (3.4-5.0); Alkaline Phosphatase 101 U/L (45-117); Anion Gap 27 meq/L (5-15); Aspartate Aminotransferase 23 U/L (15-37); Blood Urea Nitrogen 143 mg/dL (7-18); Carbon Dioxide 22.9 meq/L (21.0-32.0); Chloride 91 meq/L (98-107); Glomerular Filtration Rate 6 mL/min (>89); Glucose,Random 357 mg/dL (74-106); Potassium 4.3 meq/L (3.5-5.1); Sodium 141 meq/L (136-145); Total Protein 7.7 g/dL (6.4-8.2); Vancomycin,Random 22.1 Comment
[2018-06-17] MEDS: Vancomycin Inj 1,000 MG in Sodium Chlor 0.9% Inj 250 ML IV.SIG SCH (11:00)
--- NOTE | 2018-06-17 11:27 | P.PNNP ---
Subjective Interval history: patient was seen during dialysis. On 3K, 4 hours, BFR 300 ml/min. UF goal is 300 ml. He is intubated. Sedated, unresponsive. Physical Exam Vital signs: Vital Signs 06/16/18 11:28 06/16/18 12:00 06/16/18 14:00 Temperature 99.7 F H Pulse Rate 60 60 Respiratory Rate 12 12 Blood Pressure 141/59 H Pulse Oximetry 100 99 06/16/18 16:00 06/16/18 16:48 06/16/18 18:00 Temperature 98.2 F Pulse Rate 58 L 60 Respiratory Rate 13 13 Blood Pressure 149/57 H Pulse Oximetry 99 100 06/16/18 19:59 06/16/18 20:00 06/16/18 20:37 Temperature 99.2 F Pulse Rate 60 Respiratory Rate 13 12 Blood Pressure 122/42 L Pulse Oximetry 100 100 100 06/16/18 22:00 06/17/18 00:00 06/17/18 00:59 Temperature 99.1 F Pulse Rate 58 L 64 Respiratory Rate 13 12 Blood Pressure 139/61 Pulse Oximetry 99 100 06/17/18 02:00 06/17/18 04:00 06/17/18 04:16 Temperature 98.6 F Pulse Rate 62 61 Respiratory Rate 12 12 Blood Pressure 128/57 L Pulse Oximetry 100 100 06/17/18 06:00 06/17/18 08:00 06/17/18 08:09 Temperature 99.0 F Pulse Rate 72 60 Respiratory Rate 14 20 Blood Pressure 115/45 L Pulse Oximetry 99 100 06/17/18 10:00 Temperature Pulse Rate 68 Respiratory Rate Blood Pressure Pulse Oximetry Intake & Output 06/16/18 06/17/18 06/17/18 18:59 06:59 18:59 Intake Total 450 / 450 530 / 530 100 / 100 Output Total 65 / 65 100 / 100 Balance 385 / 385 430 / 430 100 / 100 Weight 64.7 kg Intake: IV 100 / 100 150 / 150 100 / 100 Pitressin Inj 40 UNIT In NS Inj 100 / 100 98 ML @ 0.04 UNITS/MIN 6 mls/ hr IV.CONT TITRATE PRN Rx#: [id number] Flexbumin 25% Inj 100 ML @ 66. 100 / 100 667 mls/hr IV.SIG NOW ONE Rx#: [id number] Zosyn 2.25 GM Premix 50 ML @ 100 / 100 50 / 50 100 mls/hr IV.SIG Q8H [facility] Rx#: [id number] Tube Feeding 380 / 380 Tube Irrigant 150 / 150 Water Bolus Amount 200 / 200 Output: Urine Amount (Catheter) 65 / 65 100 / 100 Indwelling Urethral Catheter 65 / 65 100 / 100 Other: Date of Last Bowel Movement 06/16/18 06/17/18 06/17/18 # Incontinent Bowel Movements 3 - Constitutional no acute distress, chronically ill appearing - Routine HEENT Exam Head: Present: normocephalic - Routine Respiratory Exam Comments: on the ventilator. - Routine Cardiovascular Exam Present: RRR, S1, S2 - Routine Abdominal Exam Present: soft - Additional findings Additional findings: left sided weakness. - Urinary Catheter Management Indwelling Urethral Catheter Cath placed during this visit: yes Reason for continuing: Hourly intake/output Insertion date: 06/10/18 Insertion time: 16:40 Assessment and Plan - Assessment (1) Renal failure, chronic Code(s): N18.9 - Chronic kidney disease, unspecified Status: Acute Qualifiers: Chronic kidney disease stage: stage 5 Qualified Code(s): N18.5 - Chronic kidney disease, stage 5 Plan: We will continue dialysis MWF. Avoid Gadolinium. Monitor fluid and electrolytes. 4 hours of dialysis. (2) Acute right MCA stroke Code(s): I63.511 - Cerebral infarction due to unspecified occlusion or stenosis of right middle cerebral artery Status: Acute Plan: Management per neurology. tPA administered, no improvement. (3) Hypertension Code(s): I10 - Essential (primary) hypertension Status: Acute Qualifiers: Hypertension type: essential hypertension Qualified Code(s): I10 - Essential (primary) hypertension Plan: Continue medications as ordered. - Plan patient also has developed left sided lung consolidation and effusion.
[2018-06-17] MEDS: Gelatin 12 MM/7 MM Topical Foam TOPICAL PRN (12:00)
--- NOTE | 2018-06-17 14:09 | P.PNCC ---
Subjective Subjective Remarks/Hospital Course: 06/10: 63-year-old male with a history of hypertension, renal failure, dialysis dependent, presents as a stroke alert. Patient was last seen normal at 1500 p.m. which was within the 3 hour limit. Patient apparently was seen normal and then found in a room at the [facility] with left-sided weakness and a right- sided gaze. The patient initially did not want to go the hospital and was encouraged by the EMS staff to come. He denies any pain. He understands that he is having a stroke. He was unable to move his left upper extremity or left lower extremity. The TPA was administered in the emergency department. CTA of the head and neck shows the intracerebral vasculature is normal in caliber without evidence of aneurysm or abnormal truncation. The patient has been admitted to ICU stroke TPa protocol. 06/11: Resting in bed. Having episodes of nausea. Continues to have left-sided hemiplegia. 06/12: Patient developed worsening respiratory distress with dropping O2 sats requiring supplemental O2 however his O2 sats dropped to the mid 80s and he appeared to be significantly short of breath. He was also having encephalopathy with fluctuating mental status and significant nausea. Head CT done earlier revealed slight hemorrhagic conversion in the area of his infarct. Dr. Do asked that I see the patient as reconsult. decision was made to intubate and I proceeded with endotracheal intubation and patient was placed on mechanical ventilation. Postprocedure chest x-ray showed ET tube in appropriate position and pulmonary edema pattern. Immediately following intubation patient was dialyzed with removal of around 3.5 L of fluid. 06/13: Remains sedated, orally intubated on mechanical ventilation. 06/14: Sedated, arousable, orally intubated on mechanical ventilation. Left- sided weakness persists. Following commands on lightening sedation. Head CT done yesterday showed new areas of hemorrhage in area of ischemic infarct. 06/15: Sedated, arousable, following commands, orally intubated on mechanical ventilation. 06/16: Gentleman sustained a right temporoparietal ischemic stroke with minor bleeding following TPA administration. He required orotracheal intubation because of confusion and hypoxemia. He was noted to have fluid overload at the time related to his ongoing. He has improved after dialysis. He does follow commands with his right side but failed a CPAP spontaneous breathing trial this morning. 09/12: We are continuing to promote spontaneous breathing trials with limited success. Fluid overload status appears improved. Remains afebrile and without leukocytosis left lower lobe collapse and the presence of gram-negative rods and a sputum culture are worrisome. Will continue coverage for gram-negative organisms Objective Vital Signs / I&O: Vital Signs 06/16/18 16:00 06/16/18 16:48 06/16/18 18:00 Temperature 98.2 F Pulse Rate 58 L 60 Respiratory Rate 13 13 Blood Pressure 149/57 H Pulse Oximetry 99 100 06/16/18 19:59 06/16/18 20:00 06/16/18 20:37 Temperature 99.2 F Pulse Rate 60 Respiratory Rate 13 12 Blood Pressure 122/42 L Pulse Oximetry 100 100 100 06/16/18 22:00 06/17/18 00:00 06/17/18 00:59 Temperature 99.1 F Pulse Rate 58 L 64 Respiratory Rate 13 12 Blood Pressure 139/61 Pulse Oximetry 99 100 06/17/18 02:00 06/17/18 04:00 06/17/18 04:16 Temperature 98.6 F Pulse Rate 62 61 Respiratory Rate 12 12 Blood Pressure 128/57 L Pulse Oximetry 100 100 06/17/18 06:00 06/17/18 08:00 06/17/18 08:09 Temperature 99.0 F Pulse Rate 72 60 Respiratory Rate 14 20 Blood Pressure 115/45 L Pulse Oximetry 99 100 06/17/18 10:00 06/17/18 12:27 Temperature Pulse Rate 68 Respiratory Rate 13 Blood Pressure Pulse Oximetry 100 Intake & Output 06/16/18 06/17/18 06/17/18 18:59 06:59 18:59 Intake Total 450 / 450 530 / 530 450 / 450 Output Total 65 / 65 100 / 100 300 / 300 Balance 385 / 385 430 / 430 150 / 150 Weight 64.7 kg Intake: IV 100 / 100 150 / 150 450 / 450 Pitressin Inj 40 UNIT In NS Inj 100 / 100 98 ML @ 0.04 UNITS/MIN 6 mls/ hr IV.CONT TITRATE PRN Rx#: [id number] Flexbumin 25% Inj 100 ML @ 60 200 / 200 mls/hr IV.SIG WITH DIALYSIS PRN Rx#:[id number] Zosyn 2.25 GM Premix 50 ML @ 100 / 100 50 / 50 100 mls/hr IV.SIG Q8H [facility] Rx#: [id number] Vancomycin Inj 1,000 MG In NS 250 / 250 Inj 250 ML @ 250 mls/hr IV.SIG WITH DIALYSIS [facility] Rx#:[id number] Tube Feeding 380 / 380 Tube Irrigant 150 / 150 Water Bolus Amount 200 / 200 Output: Hemodialysis Amount 300 / 300 Urine Amount (Catheter) 65 / 65 100 / 100 Indwelling Urethral Catheter 65 / 65 100 / 100 Other: Date of Last Bowel Movement 06/16/18 06/17/18 06/17/18 # Incontinent Bowel Movements 3 Result Diagrams: 06/15/18 08:51 06/17/18 07:59 Objective Remarks: HEENT/ Neuro: Sedated, arousable, following commands, orally intubated, Pallor present, no icterus, tongue/ mucosa moist, left rachael-paresis Neck: Supple, oral tracheal intubation. Chest/Pulm: on mech vent, good air entry bilaterally, no wheezing or crackles CVS: S1-S2 regular, no murmur, neck veins are full, not distended GI/abdomen: soft, nontender, bowel sounds sluggish Extremities: warm bilaterally, no edema Procedures: - Assessment and Plan - Assessment and Plan Plan: Acute CVA -Status post TPA administration -Neuro checks per unit protocol -Repeat CT head 06/13 with new areas of hemorrhage in area of right parieto- occipital infarct. Neurology following. Neurosurgery consulted. -PT and OT as tolerated -Further management per neurology -Status post JAVIER Acute respiratory failure on mechanical ventilation Pulmonary edema Possible aspiration -Continue mechanical ventilation, vent bundle, bronchodilators as needed. -Sputum Gram stain and cultures sent. Blood cultures pending -Empiric antibiotic coverage with IV Zosyn started 06/12 Daily CPAP trials. ESRD -Continue hemodialysis per renal Hypertension -Cardene drip to keep SBP less than 180 -Labetalol and enalapril IV as needed -Started amlodipine 5 mg daily on 06/13 Nausea/vomiting -Zofran and Phenergan as needed Dyslipidemia -Pravastatin DVT GI prophylaxis -Teds SCDs -No pharmacological DVT prophylaxis 24 hours post TPA -Pepcid Discussed with patient's following intubation regarding current clinical status and plan of care and she voiced understanding. Overall impression: The gentleman remains critically ill and neurologically unstable. We are unable to wean him from the ventilator due to inadequate respiratory effort. He remains in a paced ventricular rhythm. Critical CARE 30 minutes aside from procedures.
--- NOTE | 2018-06-17 17:07 | MG ---
cc: Raul Larsen MD ELECTROENCEPHALOGRAM NUMBER: [id number] INDICATION: A 63-year-old status post right MCA stroke, pacemaker, vancomycin. Recording shows diffuse beta rhythms with 12-13 Hz diffuse rhythm is noted, some high-frequency alpha rhythm noted. Photic stimulation is performed without significant posterior driving. Hyperventilation was not performed. There may be a slight attenuation of the right hemisphere centrally compared to the left, but no epileptiform or seizure activity was seen. IMPRESSION: Mild right hemisphere attenuation, otherwise an unremarkable electroencephalogram. No seizure activity was seen. Raul Larsen MD DJM/ch , 04:47 PM , 04:51 PM
[2018-06-18 05:23] LABS: Alanine Aminotransferase 29 U/L (12-78); Albumin 4.3 g/dL (3.4-5.0); Alkaline Phosphatase 115 U/L (45-117); Anion Gap 17 meq/L (5-15); Aspartate Aminotransferase 23 U/L (15-37); Blood Urea Nitrogen 82 mg/dL (7-18); Calcium 10.1 mg/dL (8.5-10.1); Carbon Dioxide 28.3 meq/L (21.0-32.0); Chloride 99 meq/L (98-107); Glomerular Filtration Rate 11 mL/min (>89); Glucose,Random 294 mg/dL (74-106); Phosphorus 4.6 mg/dL (2.5-4.9); Potassium 4.6 meq/L (3.5-5.1); Sodium 144 meq/L (136-145)
[2018-06-18] MEDS: Modafinil 200 MG Tablet PO SCH (08:16)
[2018-06-18] MEDS: Beneprotein Powder Packet G-TUBE SCH (08:16)
[2018-06-18] MEDS: Piperacil/Tazo 2.25 GM Premix 50 ML IV.SIG SCH (08:16)
[2018-06-18] MEDS: Insulin NovoLOG Aspart Correctional Sugar Inj SQ SCH ×2 (08:17→12:10)
[2018-06-18] MEDS: amLODIPine 5 MG Tablet NG/OG SCH (08:17)
[2018-06-18] MEDS: Aspirin 325 MG Tablet PO SCH (08:21)
--- NOTE | 2018-06-18 09:50 | P.PNCC ---
Subjective Subjective Remarks/Hospital Course: 06/10: 63-year-old male with a history of hypertension, renal failure, dialysis dependent, presents as a stroke alert. Patient was last seen normal at 1500 p.m. which was within the 3 hour limit. Patient apparently was seen normal and then found in a room at the [facility] with left-sided weakness and a right- sided gaze. The patient initially did not want to go the hospital and was encouraged by the EMS staff to come. He denies any pain. He understands that he is having a stroke. He was unable to move his left upper extremity or left lower extremity. The TPA was administered in the emergency department. CTA of the head and neck shows the intracerebral vasculature is normal in caliber without evidence of aneurysm or abnormal truncation. The patient has been admitted to ICU stroke TPa protocol. 06/11: Resting in bed. Having episodes of nausea. Continues to have left-sided hemiplegia. 06/12: Patient developed worsening respiratory distress with dropping O2 sats requiring supplemental O2 however his O2 sats dropped to the mid 80s and he appeared to be significantly short of breath. He was also having encephalopathy with fluctuating mental status and significant nausea. Head CT done earlier revealed slight hemorrhagic conversion in the area of his infarct. Dr. Do asked that I see the patient as reconsult. decision was made to intubate and I proceeded with endotracheal intubation and patient was placed on mechanical ventilation. Postprocedure chest x-ray showed ET tube in appropriate position and pulmonary edema pattern. Immediately following intubation patient was dialyzed with removal of around 3.5 L of fluid. 06/13: Remains sedated, orally intubated on mechanical ventilation. 06/14: Sedated, arousable, orally intubated on mechanical ventilation. Left- sided weakness persists. Following commands on lightening sedation. Head CT done yesterday showed new areas of hemorrhage in area of ischemic infarct. 06/15: Sedated, arousable, following commands, orally intubated on mechanical ventilation. 06/16: Gentleman sustained a right temporoparietal ischemic stroke with minor bleeding following TPA administration. He required orotracheal intubation because of confusion and hypoxemia. He was noted to have fluid overload at the time related to his ongoing. He has improved after dialysis. He does follow commands with his right side but failed a CPAP spontaneous breathing trial this morning. 09/12: We are continuing to promote spontaneous breathing trials with limited success. Fluid overload status appears improved. Remains afebrile and without leukocytosis left lower lobe collapse and the presence of gram-negative rods and a sputum culture are worrisome. Will continue coverage for gram-negative organisms. 06/18: Will require LTAC placement for long-term ventilator weaning. Objective Vital Signs / I&O: Vital Signs 06/17/18 10:00 06/17/18 12:00 06/17/18 12:27 Temperature 98.3 F Pulse Rate 68 59 L Respiratory Rate 13 13 Blood Pressure 115/44 L Pulse Oximetry 100 100 06/17/18 14:00 06/17/18 16:00 06/17/18 18:00 Temperature 97.2 F L Pulse Rate 60 68 62 Respiratory Rate 21 Blood Pressure 117/49 L Pulse Oximetry 100 06/17/18 19:38 06/17/18 20:00 06/17/18 22:00 Temperature 99.3 F Pulse Rate 66 71 Respiratory Rate 16 12 Blood Pressure 106/51 L Pulse Oximetry 99 99 06/17/18 23:46 06/18/18 00:00 06/18/18 02:00 Temperature 98.6 F Pulse Rate 60 59 L Respiratory Rate 12 12 Blood Pressure 105/46 L Pulse Oximetry 99 98 06/18/18 04:00 06/18/18 04:05 06/18/18 08:00 Temperature 98.8 F 99 F Pulse Rate 70 62 Respiratory Rate 14 15 12 Blood Pressure 190/75 H 171/86 H Pulse Oximetry 100 100 99 06/18/18 08:06 Temperature Pulse Rate Respiratory Rate 12 Blood Pressure Pulse Oximetry 99 Intake & Output 06/17/18 06/18/18 06/18/18 18:59 06:59 18:59 Intake Total 600 / 600 782 / 782 50 / 50 Output Total 600 / 600 75 / 75 Balance 0 / 0 707 / 707 50 / 50 Weight 64 kg Intake: IV 600 / 600 50 / 50 50 / 50 Pitressin Inj 40 UNIT In NS Inj 100 / 100 98 ML @ 0.04 UNITS/MIN 6 mls/ hr IV.CONT TITRATE PRN Rx#: [id number] Flexbumin 25% Inj 100 ML @ 60 200 / 200 mls/hr IV.SIG WITH DIALYSIS PRN Rx#:[id number] Zosyn 2.25 GM Premix 50 ML @ 50 / 50 50 / 50 50 / 50 100 mls/hr IV.SIG Q8H HELLEN Rx#: [id number] Vancomycin Inj 1,000 MG In NS 250 / 250 Inj 250 ML @ 250 mls/hr IV.SIG WITH DIALYSIS HELLEN Rx#:[id number] Tube Feeding 672 / 672 Tube Irrigant 60 / 60 Output: Hemodialysis Amount 600 / 600 Urine Amount (Catheter) 75 / 75 Indwelling Urethral Catheter 75 / 75 Other: Date of Last Bowel Movement 06/17/18 06/18/18 06/18/18 # Incontinent Bowel Movements 4 Result Diagrams: 06/15/18 08:51 06/18/18 04:26 Objective Remarks: HEENT/ Neuro: Sedated, arousable, following commands right side, orally intubated, Pallor present, no icterus, tongue/ mucosa moist, left rachael-paresis Neck: Supple, oral tracheal intubation. Chest/Pulm: on mech vent, good air entry bilaterally, no wheezing or crackles, few secretions. CVS: S1-S2 regular, no murmur, neck veins are full, not distended GI/abdomen: soft, nontender, bowel sounds active, no guarding or tenderness. Extremities: warm bilaterally, no edema, well perfused. Procedures: - Assessment and Plan - Problem List (1) Acute right MCA stroke Code(s): I63.511 - Cerebral infarction due to unspecified occlusion or stenosis of right middle cerebral artery Status: Acute (2) Acute hypoxemic respiratory failure Code(s): J96.01 - Acute respiratory failure with hypoxia Status: Acute (3) ESRD (end stage renal disease) on dialysis Code(s): N18.6 - End stage renal disease; Z99.2 - Dependence on renal dialysis Status: Acute (4) Hypertension Code(s): I10 - Essential (primary) hypertension Status: Acute - Assessment and Plan Plan: Acute CVA -Status post TPA administration -Neuro checks per unit protocol -Repeat CT head 06/13 with new areas of hemorrhage in area of right parieto- occipital infarct. Neurology following. Neurosurgery consulted. -PT and OT as tolerated -Further management per neurology -Status post JAVIER Acute respiratory failure on mechanical ventilation Pulmonary edema Possible aspiration -Continue mechanical ventilation, vent bundle, bronchodilators as needed. -Sputum Gram stain and cultures sent. Blood cultures pending -Empiric antibiotic coverage with IV Zosyn started 06/12 Daily CPAP trials. ESRD -Continue hemodialysis per renal Hypertension -Cardene drip to keep SBP less than 180 -Labetalol and enalapril IV as needed -Started amlodipine 5 mg daily on 06/13 -Converted to oral antihypertensive agents. Nausea/vomiting -Zofran and Phenergan as needed Dyslipidemia -Pravastatin DVT GI prophylaxis -Teds SCDs -No pharmacological DVT prophylaxis 24 hours post TPA -Pepcid Discussed with patient's following intubation regarding current clinical status and plan of care and she voiced understanding. Overall impression: The gentleman remains ventilator dependent and we are unable to wean him due to inadequate respiratory effort. He remains in a paced ventricular rhythm. Will transfer to LTAC for long-term ventilator weaning over the next several weeks hopefully. (4) Hypertension Qualifiers: Hypertension type: essential hypertension Qualified Code(s): I10 - Essential (primary) hypertension
--- NOTE | 2018-06-18 09:58 | P.DS ---
Date of admission: 06/10/18 17:44 Primary care physician: Thomas Escobedo Attending physician on discharge: Josiah Clement Brief History from admission: 06/10: 63-year-old male with a history of hypertension, renal failure, dialysis dependent, presents as a stroke alert. Patient was last seen normal at 1500 p.m. which was within the 3 hour limit. Patient apparently was seen normal and then found in a room at the [facility] with left-sided weakness and a right- sided gaze. The patient initially did not want to go the hospital and was encouraged by the EMS staff to come. He denies any pain. He understands that he is having a stroke. He was unable to move his left upper extremity or left lower extremity. The TPA was administered in the emergency department. CTA of the head and neck shows the intracerebral vasculature is normal in caliber without evidence of aneurysm or abnormal truncation. The patient has been admitted to ICU stroke TPa protocol. 06/11: Resting in bed. Having episodes of nausea. Continues to have left-sided hemiplegia. 06/12: Patient developed worsening respiratory distress with dropping O2 sats requiring supplemental O2 however his O2 sats dropped to the mid 80s and he appeared to be significantly short of breath. He was also having encephalopathy with fluctuating mental status and significant nausea. Head CT done earlier revealed slight hemorrhagic conversion in the area of his infarct. Dr. Do asked that I see the patient as reconsult. decision was made to intubate and I proceeded with endotracheal intubation and patient was placed on mechanical ventilation. Postprocedure chest x-ray showed ET tube in appropriate position and pulmonary edema pattern. Immediately following intubation patient was dialyzed with removal of around 3.5 L of fluid. 06/13: Remains sedated, orally intubated on mechanical ventilation. 06/14: Sedated, arousable, orally intubated on mechanical ventilation. Left- sided weakness persists. Following commands on lightening sedation. Head CT done yesterday showed new areas of hemorrhage in area of ischemic infarct. 06/15: Sedated, arousable, following commands, orally intubated on mechanical ventilation. 06/16: Gentleman sustained a right temporoparietal ischemic stroke with minor bleeding following TPA administration. He required orotracheal intubation because of confusion and hypoxemia. He was noted to have fluid overload at the time related to his ongoing. He has improved after dialysis. He does follow commands with his right side but failed a CPAP spontaneous breathing trial this morning. 06/17: We are continuing to promote spontaneous breathing trials with limited success. Fluid overload status appears improved. Remains afebrile and without leukocytosis left lower lobe collapse and the presence of gram-negative rods and a sputum culture are worrisome. Will continue coverage for gram-negative organisms. 06/18: Will require LTAC placement for long-term ventilator weaning. Patient update on day of discharge: Remains alert and moves his right side spontaneously. Continued left hemiparesis. Continues to fail spontaneous breathing trials. Will require LTAC for long-term weaning process. DS: Diagnosis - Discharge Diagnosis (1) Acute right MCA stroke Status: Acute (2) Acute hypoxemic respiratory failure Status: Acute (3) ESRD (end stage renal disease) on dialysis Status: Acute (4) Hypertension Status: Acute DS: Summary Hospital Course: 06/10: 63-year-old male with a history of hypertension, renal failure, dialysis dependent, presents as a stroke alert. Patient was last seen normal at 1500 p.m. which was within the 3 hour limit. Patient apparently was seen normal and then found in a room at the [facility] with left-sided weakness and a right- sided gaze. The patient initially did not want to go the hospital and was encouraged by the EMS staff to come. He denies any pain. He understands that he is having a stroke. He was unable to move his left upper extremity or left lower extremity. The TPA was administered in the emergency department. CTA of the head and neck shows the intracerebral vasculature is normal in caliber without evidence of aneurysm or abnormal truncation. The patient has been admitted to ICU stroke TPa protocol. 06/11: Resting in bed. Having episodes of nausea. Continues to have left-sided hemiplegia. 06/12: Patient developed worsening respiratory distress with dropping O2 sats requiring supplemental O2 however his O2 sats dropped to the mid 80s and he appeared to be significantly short of breath. He was also having encephalopathy with fluctuating mental status and significant nausea. Head CT done earlier revealed slight hemorrhagic conversion in the area of his infarct. Dr. Do asked that I see the patient as reconsult. decision was made to intubate and I proceeded with endotracheal intubation and patient was placed on mechanical ventilation. Postprocedure chest x-ray showed ET tube in appropriate position and pulmonary edema pattern. Immediately following intubation patient was dialyzed with removal of around 3.5 L of fluid. 06/13: Remains sedated, orally intubated on mechanical ventilation. 06/14: Sedated, arousable, orally intubated on mechanical ventilation. Left- sided weakness persists. Following commands on lightening sedation. Head CT done yesterday showed new areas of hemorrhage in area of ischemic infarct. 06/15: Sedated, arousable, following commands, orally intubated on mechanical ventilation. 06/16: Gentleman sustained a right temporoparietal ischemic stroke with minor bleeding following TPA administration. He required orotracheal intubation because of confusion and hypoxemia. He was noted to have fluid overload at the time related to his ongoing. He has improved after dialysis. He does follow commands with his right side but failed a CPAP spontaneous breathing trial this morning. 06/17: We are continuing to promote spontaneous breathing trials with limited success. Fluid overload status appears improved. Remains afebrile and without leukocytosis left lower lobe collapse and the presence of gram-negative rods and a sputum culture are worrisome. Will continue coverage for gram-negative organisms. 06/18: Will require LTAC placement for long-term ventilator weaning. - Time Spent with Patient Total time spent providing and/or coordinating discharge services: Greater than 30 minutes - Quality: Stroke Last date observed well: 06/10/18 Last time observed well: 15:00 - Quality: VTE Deep Vein Thrombosis/Pulmonary Embolism Present on Admission: No Exam Vital signs: Vital Signs 06/17/18 10:00 06/17/18 12:00 06/17/18 12:27 Temperature 98.3 F Pulse Rate 68 59 L Respiratory Rate 13 13 Blood Pressure 115/44 L Pulse Oximetry 100 100 06/17/18 14:00 06/17/18 16:00 06/17/18 18:00 Temperature 97.2 F L Pulse Rate 60 68 62 Respiratory Rate 21 Blood Pressure 117/49 L Pulse Oximetry 100 06/17/18 19:38 06/17/18 20:00 06/17/18 22:00 Temperature 99.3 F Pulse Rate 66 71 Respiratory Rate 16 12 Blood Pressure 106/51 L Pulse Oximetry 99 99 06/17/18 23:46 06/18/18 00:00 06/18/18 02:00 Temperature 98.6 F Pulse Rate 60 59 L Respiratory Rate 12 12 Blood Pressure 105/46 L Pulse Oximetry 99 98 06/18/18 04:00 06/18/18 04:05 06/18/18 08:00 Temperature 98.8 F 99 F Pulse Rate 70 62 Respiratory Rate 14 15 12 Blood Pressure 190/75 H 171/86 H Pulse Oximetry 100 100 99 06/18/18 08:06 Temperature Pulse Rate Respiratory Rate 12 Blood Pressure Pulse Oximetry 99 Intake & Output 06/17/18 06/18/18 06/18/18 18:59 06:59 18:59 Intake Total 600 / 600 782 / 782 50 / 50 Output Total 600 / 600 75 / 75 Balance 0 / 0 707 / 707 50 / 50 Weight 64 kg Intake: IV 600 / 600 50 / 50 50 / 50 Pitressin Inj 40 UNIT In NS Inj 100 / 100 98 ML @ 0.04 UNITS/MIN 6 mls/ hr IV.CONT TITRATE PRN Rx#: [id number] Flexbumin 25% Inj 100 ML @ 60 200 / 200 mls/hr IV.SIG WITH DIALYSIS PRN Rx#:[id number] Zosyn 2.25 GM Premix 50 ML @ 50 / 50 50 / 50 50 / 50 100 mls/hr IV.SIG Q8H HELLEN Rx#: [id number] Vancomycin Inj 1,000 MG In NS 250 / 250 Inj 250 ML @ 250 mls/hr IV.SIG WITH DIALYSIS HELLEN Rx#:[id number] Tube Feeding 672 / 672 Tube Irrigant 60 / 60 Output: Hemodialysis Amount 600 / 600 Urine Amount (Catheter) 75 / 75 Indwelling Urethral Catheter 75 / 75 Other: Date of Last Bowel Movement 06/17/18 06/18/18 06/18/18 # Incontinent Bowel Movements 4 Narrative: Ventilator dependent respiratory failure Left hemiparesis Results Procedures completed during hospitalization: CT Head MRI Labs on day of discharge: Labs from last 24 hours 06/18/18 06/18/18 06/17/18 07:31 04:26 20:37 Sodium 144 Potassium 4.6 Chloride 99 D Carbon Dioxide 28.3 Anion Gap 17 H BUN 82 H Creatinine 5.35 H Estimated GFR 11 L POC Glucose 341 H 287 H Random Glucose 294 H Calcium 10.1 Phosphorus 4.6 Total Bilirubin 1.4 H AST 23 ALT 29 Alkaline Phosphatase 115 Total Protein 8.0 Albumin 4.3 D 06/17/18 06/17/18 16:18 11:25 Sodium Potassium Chloride Carbon Dioxide Anion Gap BUN Creatinine Estimated GFR POC Glucose 272 H 165 H Random Glucose Calcium Phosphorus Total Bilirubin AST ALT Alkaline Phosphatase Total Protein Albumin - Impressions ITS Impressions Head CTA 06/10/18 16:08 CONCLUSION: 1. Atherosclerosis identified within the region of the carotid bulb without significant luminal narrowing. The intracerebral vasculature is otherwise normal in caliber without evidence of aneurysm or abnormal truncation. Neck CTA 06/10/18 16:08 CONCLUSION: 1. No evidence for hemodynamically significant stenosis. Chest X-Ray 06/15/18 00:00 CONCLUSION: Persistent left basilar consolidation and small effusion without significant improvement Stable supportive devices. Head CT 06/16/18 14:45 CONCLUSION: Evolving right parietotemporal subacute infarct with mild surrounding parenchymal hemorrhage not significantly changed. No midline shift. . Discharge Plan - Discharge Disposition Patient Disposition: 62 Disch Custodial Acute Care - Discharge Condition Condition: Stable - Discharge Order Discharge Orders: Discharge Order (Routine); Ordered 06/18/18 Ordered By: Josiah Clement - Physicians Team Primary Care Provider: Thomas Escobedo Attending Provider: Mac Hair Other Providers: Raul Owen MD ; Teetee Chauhan MD ; Dominick Turner MD ; Andrea Elizondo MD ; Moreno Paris MD ; Kelvin Martinez MD ; [facility]
[2018-06-19] MEDS ORDERED: Vancomycin Inj 750 MG in Sodium Chlor 0.9% Inj 250 ML IV.SIG SCH (14:00)
== END 2018-06-18 12:25 ==
LOC: NEPE 16:05 → NEDA 17:44 → NEDH 22:36 → N03 23:35
PROVIDERS: ADMIT Internal Medicine Critical Care Medicine; ATTEND Internal Medicine Critical Care Medicine